=== PATIENT | female | born 1995 | race Caucasian/White ===

== ENCOUNTER 2024-07-11 23:59 | Inpatient (IN) ==
--- NOTE | 2024-07-12 00:13 | Emergency Department Note ---
Impression & Plan Acute right flank pain, UTI (urinary tract infection), ED Provider Note CHIEF COMPLAINT: Kidney infection, HISTORY OF PRESENTING ILLNESS: This 28-year-old female patient, who is approximately 29 weeks , presents to the emergency department for evaluation of a kidney infection. She started with a fever of 100.4 F and fatigue on 07/08/24. She then started with right flank pain the next day. The patient states that she was seen at [facility] on 07/09/2024 and diagnosed with a possible kidney infection. She states that they did a US, blood work, and urine testing. She was given IV antibiotics as well as a prescription for cefpodoxime and was told to follow-up with [facility] b/c of an abnormality seen on the US. The patient saw [facility] yesterday and was given Zofran and they were going to repeat the US next week. She was told to go back to the ER if she had continued fevers, nausea, or vomiting per patient. Her temp has been 99 F max since starting the antibiotics. The patient states that she is having continued right flank pain as well as nausea and vomiting despite the Zofran. She states that the right flank pain kept her from sleeping tonight. She states that there has been normal movement. She denies any vaginal bleeding. She has had continued urinary symptoms. REVIEW OF SYSTEMS: See HPI for pertinent positives and pertinent negatives. ALLERGIES: Latex MEDICATIONS: vitamin, Iron, Vit B12 PAST MEDICAL HISTORY: Denies pertinent past medical history. She has had an appendectomy, T&A, and wisdom teeth removed. PHYSICAL EXAM: VITALS: Vitals are noted on the nurse's note and reviewed by myself. GENERAL: Non toxic, in no acute distress, non-diaphoretic. SKIN: Capillary refill <2 sec. EYES: PERRLA. EOMI. Conjunctivae without injection, sclerae without icterus. NOSE: Patent without discharge. MOUTH: Mucous membranes moist. Uvula midline. Airway patent. NECK: Supple without nuchal rigidity. HEART: Regular rate and rhythm without murmurs gallops or rubs. LUNGS: Clear to auscultation bilaterally without wheezes, rales or rhonchi. No retractions or accessory muscle use. ABDOMEN: Gravid, tender to palpation of the right flank, but no other significant tenderness to palpation. Cornejo sign negative. Mildly positive right-sided CVA tenderness. No guarding, rigidity, or rebound tenderness. No focal RLQ or LLQ tenderness. MUSCULOSKELETAL: No gross musculoskeletal defects. NEURO: Patient was alert and oriented. No focal neurological deficits. DIFFERENTIAL DIAGNOSIS: Differential diagnosis includes hepatitis, pancreatitis, cholecystitis, cholelithiasis, appendicitis, kidney stone, pyelonephritis, UTI, gastritis, gastroenteritis, mesenteric adenitis, obstruction, constipation, hernia, abdominal abscess, perforation, diverticulitis, IBD, ischemic colitis, abdominal aortic aneurysm, complications, ovarian cyst, ovarian torsion, acute salpingitis, or others. ED COURSE AND MEDICAL DECISION MAKING: MEDICATIONS GIVEN: A total of 2 L normal saline solution bolus. Tylenol 1000 mg IV. Zofran 4 mg IV. Phenergan 25 mg IM. Dilaudid 0.25 mg IV. Rocephin 2 g IV. MONITOR: Continuous traffic monitor specialist: Order was placed for continuous traffic monitor specialist. Patient was placed on the traffic monitor specialist and continuous pulse ox. Patient was noted to be in normal sinus rhythm at an initial rate of 90 bpm per my interpretation. INTERPRETATION OF LABS: I interpreted the labs with full lab results as below in the lab section of this note. Laboratory results pertinent to the emergent complaint are discussed in the MDM section below. The patient was advised to follow up with their PCP and/or specialist(s) for further outpatient monitoring and management of any abnormal results. INTERPRETATION OF IMAGING: Imaging studies were interpreted by myself and read by radiology as per the imaging section of this note. The patient was advised to follow up with their PCP and/or specialist(s) for further outpatient management of any non-emergent abnormal findings. Renal ultrasound negative for acute abnormalities. CHRONIC MEDICAL/SOCIAL CONDITIONS AFFECTING CARE: 29 weeks CONSULTATIONS: Dr. Levine of [facility]. On-call hospitalist MDM SUMMARY: I examined the patient. The patient is 29 weeks . The patient started with a low-grade fever on 07/08/2024 followed by right flank pain the next day. She was seen at [facility] ER on 07/09/2024 and had a ultrasound and was told she had an infection of her kidney. The patient states that she was given IV antibiotics and then discharged home on for cefpodoxime. The patient then followed up with [facility] yesterday as an outpatient for follow- up of the ultrasound findings as well as her symptoms. She was given a prescription for Zofran at that time. The patient states that she was advised by [facility] to return to the ER if she had worsening symptoms despite the Zofran and antibiotics. The patient states that the right flank pain is getting progressively worse and she continues with nausea and vomiting. An IV lock was placed and labs were drawn. The patient was initially given 1 L normal saline solution bolus, Tylenol 1000 mg IV, and Zofran 4 mg IV. The patient had some continued nausea and was given Phenergan 25 mg IM. The patient had 2+ ketones in her urine and her blood pressure was a little low at 1 point and she was given a second liter of normal saline solution bolus. White blood cell count elevated 11.20. Hemoglobin low at 11.2. Platelet count normal at 133. Sodium slightly low at 135, but CMP otherwise without concerning abnormalities. Magnesium normal. Lipase normal. Lactate and procalcitonin were normal. Urinalysis with 3+ protein, trace glucose, 2+ ketones, 2+ blood, 1+ bilirubin, 1+ leukocyte Estrace, greater than 50 white blood cells, 11-20 red blood cells, 6-10 hyaline casts, greater than 20 epithelial cells, calcium oxalate crystals, and urine mucus. Renal ultrasound negative for acute abnormalities. Repeat ultrasound was not performed since the patient has noted normal movement and she denies any vaginal bleeding. I spoke with Dr. Levine of [facility] in regards to the patient. She recommends the patient receive Rocephin 2 g IV and Dilaudid for pain control. The patient was given the Rocephin 2 g IV and Dilaudid 0.25 mg IV for additional pain control. Dr. Levine did not recommend any additional imaging or workup at this time. She recommended the patient be admitted for further management. Initially the patient was going to be admitted to L&D, but there were no beds available. Therefore, she recommended the patient be admitted to medicine with [facility] consult. I spoke with the on-call hospitalist who agreed to admit the patient for further evaluation and treatment. Please refer to their dictation for further details. The patient's care was transferred in stable condition. DIAGNOSIS: Right flank pain - ? Pyelonephritis UTI - partially treated with cefpodoxime of 29 weeks Past Med/Surg History Problem List (Updated 07/12/24 @ 04:44 by Background Arnold) (Acute) UTI (urinary tract infection) (Acute) Acute right flank pain (Acute) Social History Smoking Status: Never smoker Preferred Language: Indonesian Feels Safe at Home: Yes Allergies Allergies Allergy/AdvReac Type Severity Reaction Status Date / Time latex Allergy Verified 07/12/24 00:24 Home Meds Home Medications Medication Instructions Recorded Confirmed cefpodoxime 200 mg tablet 200 mg PO Q12 07/12/24 07/12/24 cyanocobalamin (vitamin B-12) 1,000 mcg PO DAILY 07/12/24 07/12/24 1,000 mcg tablet ondansetron HCl 4 mg tablet 4 mg PO UD PRN Nausea 07/12/24 07/12/24 vit no.95-ferrous 1 tab PO DAILY 07/12/24 07/12/24 fumarate 28 mg-folic acid 800 mcg tablet () Results & Data (ED) Vital Signs Vital Signs - 24 hr 07/12/24 00:02 07/12/24 00:28 07/12/24 01:18 Temperature 37.2 C Temperature Source Temporal Artery Scan Pulse Rate 109 H 111 H 91 H Pulse Rate [Apical] Respiratory Rate 16 18 Respiratory Effort / Characteristics Non-Labored Spontaneous Respiratory Depth Normal Respiratory Pattern Regular Blood Pressure 116/80 Blood Pressure [Right Arm] Blood Pressure Mean 92 Blood Pressure Mean [Right Arm] Pulse Oximetry 98 Oxygen Delivery Method Room Air Sepsis Recent Fever Within 48 Hours Yes Sepsis New/Unexplained Change in Mental Status No Sepsis Action Taken by Nursing No Action Required 07/12/24 01:42 07/12/24 02:18 07/12/24 03:00 Temperature Temperature Source Pulse Rate 88 87 Pulse Rate [Apical] 90 Respiratory Rate 23 22 12 Respiratory Effort / Characteristics Non-Labored Spontaneous Respiratory Depth Normal Respiratory Pattern Regular Blood Pressure 88/42 L 97/57 L Blood Pressure [Right Arm] Blood Pressure Mean 57 65 Blood Pressure Mean [Right Arm] Pulse Oximetry 96 97 Oxygen Delivery Method Room Air Room Air Sepsis Recent Fever Within 48 Hours Sepsis New/Unexplained Change in Mental Status Sepsis Action Taken by Nursing 07/12/24 04:05 07/12/24 04:22 Temperature Temperature Source Pulse Rate 85 Pulse Rate [Apical] Respiratory Rate Respiratory Effort / Characteristics Respiratory Depth Respiratory Pattern Blood Pressure Blood Pressure [Right Arm] 106/54 L Blood Pressure Mean Blood Pressure Mean [Right Arm] 71 Pulse Oximetry Oxygen Delivery Method Sepsis Recent Fever Within 48 Hours Sepsis New/Unexplained Change in Mental Status Sepsis Action Taken by Nursing Laboratory Data 07/12/24 00:15 07/12/24 00:15 Lab Results 07/12/24 07/12/24 Range/Units 00:13 00:15 WBC 11.20 H (4.8-10.8) K/ul RBC 4.01 L (4.20-5.40) M/uL Hgb 11.2 L (12.0-16.0) g/dl Hct 34.0 L (37.0-47.0) % MCV 84.8 (80.0-100.0) fL MCH 27.9 (25.0-34.0) pg MCHC 32.9 (32.0-36.0) g/dL RDW Std Deviation 43.8 (36.4-46.3) fL RDW Coeff of Gwendolyn 14.2 (11.5-14.5) % Plt Count 133 (130-400) K/uL MPV 11.8 (9.4-12.4) fL Immature Gran % (Auto) 1.3 % Neut % (Auto) 82.0 % Lymph % (Auto) 11.6 % [place] % (Auto) 4.6 % Eos % (Auto) 0.2 % Baso % (Auto) 0.3 % Neut # (Auto) 9.18 H (1.40-6.50) K/uL Lymph # (Auto) 1.30 (1.20-3.40) K/uL [place] # (Auto) 0.52 (0.11-0.59) K/uL Eos # (Auto) 0.02 (0.00-0.50) K/uL Baso # (Auto) 0.03 (0.00-0.20) K/uL Immature Gran # (Auto) 0.15 (0.01-0.20) K/uL Sodium 135 L (136-145) mmol/L Potassium 3.7 (3.5-5.1) mmol/L Chloride 103 (98-107) mmol/L Carbon Dioxide 25 (21-32) mmol/L Anion Gap 7 (3-11) BUN 5 L (6-23) mg/dl Creatinine 0.53 L (0.6-1.2) mg/dl Est Cr Clr Drug Dosing 143.3 ml/min eGFR 129.11 BUN/Creatinine Ratio 9.4 L (10-20) Glucose 95 (70-99(Fasting)) mg/dl Lactate 1.0 (0.4-2.0) mmol/L Calcium 8.5 L (8.6-10.3) mg/dl Magnesium 1.7 (1.7-2.4) mg/dl Total Bilirubin 0.3 (0.2-1.0) mg/dl AST 18 (13-39) U/L ALT 11 (7-52) U/L Alkaline Phosphatase 107 H (34-104) U/L Total Protein 6.8 (6.0-8.3) gm/dl Albumin 3.4 (3.4-5.0) gm/dl Globulin 3.4 (2.5-4.0) gm/dl Albumin/Globulin Ratio 1.0 (0.9-2) Lipase 12 (11-82) U/L Procalcitonin 0.08 (0-0.5) ng/ml Urine Color Dark Yellow Urine Appearance Turbid A (Clear) Urine pH 6.0 (4.5-7.5) Ur Specific [place] 1.032 H (1.000-1.030) Urine Protein 3+ H (Negative) Urine Glucose (UA) Trace H (Negative) Urine Ketones 2+ H (Negative) Urine Blood 2+ H (Negative) Urine Nitrite Negative (Negative) Urine Bilirubin 1+ H (Negative) Urine Urobilinogen Negative (Negative) Ur Leukocyte Esterase 1+ H (Negative) Urine WBC (Auto) >50 H (0-5) /hpf Urine RBC (Auto) 11-20 H (0-2) /hpf U Hyaline Cast (Auto) 6-10 H (0-2) /lpf U Epithel Cells (Auto) >20 H (0-2) /hpf Urine Bacteria (Auto) None Seen (None Seen) Calcium Oxalate Crystal Present A (None Prsent) Urine Mucus Present A (None Prsent) Administered Medications Discontinued Medications Hydromorphone HCl (Hydromorphone Inj 0.5 Mg/0.5 Ml Syr) 0.25 mg IV NOW STA Stop: 07/12/24 02:41 Last Admin: 07/12/24 02:43 Dose: 0.25 mg Documented By: BARON Sodium Chloride (Nss) 1,000 mls @ 999 mls/hr IV .Q1H1M ONE Stop: 07/12/24 01:24 Last Infusion: 07/12/24 01:54 Dose: Infused Documented By: Admin: 07/12/24 00:46 Dose: 999 mls/hr Documented By: BARON Acetaminophen (Ofirmev) 1,000 mg in 100 mls @ 400 mls/hr IV NOW STA Stop: 07/12/24 00:38 Last Infusion: 07/12/24 01:51 Dose: Infused Documented By: Admin: 07/12/24 00:45 Dose: 400 mls/hr Documented By: BARON Sodium Chloride (Nss) 1,000 mls @ 999 mls/hr IV .Q1H1M ONE Stop: 07/12/24 02:48 Last Infusion: 07/12/24 02:48 Dose: Infused Documented By: Admin: 07/12/24 01:51 Dose: 999 mls/hr Documented By: BARON Ceftriaxone Sodium (Rocephin) 2,000 mg in 50 mls @ 100 mls/hr IV NOW STA Stop: 07/12/24 02:52 Last Infusion: 07/12/24 02:48 Dose: Infused Documented By: Admin: 07/12/24 02:37 Dose: 100 mls/hr Documented By: BARON Ondansetron HCl (Ondansetron Inj 2 Mg/Ml 2 Ml Vial) 4 mg IV NOW STA Stop: 07/12/24 00:25 Last Admin: 07/12/24 00:45 Dose: 4 mg Documented By: BARON Promethazine HCl (Promethazine Hcl Inj 25 Mg/Ml 1 Ml Vial) 25 mg IM NOW STA Stop: 07/12/24 02:16 Last Admin: 07/12/24 02:24 Dose: 25 mg Documented By: [facility] Imaging Data Radiologist's Impression: Renal Ultrasound 07/12/24 00:24 EXAM: US renal/blad retro comp CLINICAL HISTORY: Right flank pain, UTI, evel pyelo etc, 29 wk preg TECHNIQUE: Static ultrasound images with Grayscale and Doppler of kidneys and urinary bladder were submitted for review. COMPARISON: None FINDINGS: The right kidney is normal in size and echogenicity without evidence of hydronephrosis, nephrolithiasis or focal mass lesions. The left kidney is normal in size and echogenicity without evidence of hydronephrosis, nephrolithiasis or focal mass lesions. Urinary bladder is partially distended. IMPRESSION: 1. Unremarkable Renal and urinary bladder sonogram. Electronically signed by Jayy Batres 07-12-2024 01:38 AM Discharge Plan Visit Data Chief Complaint: Fever Stated Complaint: KIDNEY INFECTION,29 WKS PREG,FEVER,NAUSEA,VOMITING ED Provider: Akila oG ED Midlevel Provider: Lida Eli Discharge Problem: Acute right flank pain, UTI (urinary tract infection), Patient Disposition: Admitted As Inpatient Condition: Fair Discharge Instructions Interventions: ED Discharge Assessment Last Done: 07/12/24 05:04 Discharge Problem: UTI (urinary tract infection) Qualifiers: Urinary tract infection type: site unspecified Hematuria presence: without hematuria Qualified Code(s): N39.0 - Urinary tract infection, site not specified Qualifiers: Weeks of gestation: 29 weeks Qualified Code(s): Z3A.29 - 29 weeks gestation of
[2024-07-12 00:43] LABS: Basophils # (auto) 0.03 K/uL (0.00-0.20); Basophils % (auto) 0.3 %; Eosinophils # (auto) 0.02 K/uL (0.00-0.50); Eosinophils % (auto) 0.2 %; Hemoglobin 11.2 g/dl (12.0-16.0); Immature Granulocytes # (auto) 0.15 K/uL (0.01-0.20); Immature Granulocytes % (auto) 1.3 %; Lymphocytes % (auto) 11.6 %; Mean Corpuscular Hemoglobin 27.9 pg (25.0-34.0); Mean Corpuscular Hgb Conc 32.9 g/dL (32.0-36.0); Mean Corpuscular Volume 84.8 fL (80.0-100.0); Mean Platelet Volume 11.8 fL (9.4-12.4); Monocytes # (auto) 0.52 K/uL (0.11-0.59); Monocytes % (auto) 4.6 %; Neutrophils # (auto) 9.18 K/uL (1.40-6.50); Platelet Count 133 K/uL (130-400); RDW Coefficient of Variation 14.2 % (11.5-14.5); RDW Standard Deviation 43.8 fL (36.4-46.3); Red Blood Count 4.01 M/uL (4.20-5.40)
[2024-07-12] MEDS: ONDANSETRON INJ 2 MG/ML 2 ML VIAL IV STA (00:45)
[2024-07-12] MEDS: ACETAMINOPHEN 1,000 MG/100 ML VIAL IV STA (00:45)
[2024-07-12] MEDS: SODIUM CHLORIDE 0.9% 1,000 ML IV ONE ×2 (00:46→01:51)
[2024-07-12 00:59] LABS: Albumin Level 3.4 gm/dl (3.4-5.0); BUN Creatinine Ratio 9.4 (10-20); Bilirubin,Total 0.3 mg/dl (0.2-1.0); Calcium 8.5 mg/dl (8.6-10.3); Creatinine Clr Calc Pharmacy 143.3 ml/min; Globulin 3.4 gm/dl (2.5-4.0); Magnesium 1.7 mg/dl (1.7-2.4); Potassium 3.7 mmol/L (3.5-5.1); Total Protein 6.8 gm/dl (6.0-8.3)
[2024-07-12 01:18] LABS: Appearance Urine Turbid (Clear); Bacteria Urine Automated None Seen (None Seen); Bilirubin Urine 1+ (Negative); Blood Urine 2+ (Negative); Calcium Oxalate Crystals Urine Present (None Prsent); Color Urine Dark Yellow; Epithelial Cell Urine Auto >20 /hpf (0-2); Glucose Urine UA Trace (Negative); Ketones Urine 2+ (Negative); Leukocyte Esterase Urine 1+ (Negative); Mucus Urine Present (None Prsent); Nitrite Urine Negative (Negative); Protein Urine 3+ (Negative); Specific Gravity Urine 1.032 (1.000-1.030); Urobilinogen Urine Negative (Negative); WBC Urine Automated >50 /hpf (0-5)
--- NOTE | 2024-07-12 01:38 | Ultrasound Report ---
EXAM: US renal/blad retro comp CLINICAL HISTORY: Right flank pain, UTI, evel pyelo etc, 29 wk preg TECHNIQUE: Static ultrasound images with Grayscale and Doppler of kidneys and urinary bladder were submitted for review. COMPARISON: None FINDINGS: The right kidney is normal in size and echogenicity without evidence of hydronephrosis, nephrolithiasis or focal mass lesions. The left kidney is normal in size and echogenicity without evidence of hydronephrosis, nephrolithiasis or focal mass lesions. Urinary bladder is partially distended. IMPRESSION: 1. Unremarkable Renal and urinary bladder sonogram. Electronically signed by Jayy Batres 07-12-2024 01:38 AM
[2024-07-12] MEDS: PROMETHAZINE HCL INJ 25 MG/ML 1 ML VIAL IM STA (02:24)
[2024-07-12] MEDS: cefTRIAXone SODIUM 2,000 MG/50 ML BAG IV STA (02:37)
[2024-07-12] MEDS: HYDROmorphone INJ 0.5 MG/0.5 ML SYR IV STA (02:43)
--- NOTE | 2024-07-12 04:42 | History & Physical Report ---
Date of Service July 12, 2024 Assessment & Plan (1) UTI (urinary tract infection): Plan: 28-year-old female 29-week comes because of nausea, fever and right flank pain. Patient having symptoms of nausea and right flank pain and fever since Sunday. She went to [facility] and was found to have pyelonephritis and received dose of IV antibiotic and discharged home on p.o. cefpodoxime. At [place] ER ultrasound showed fetus probably mild polyhydramnios at 29 cm. Patient followed with [facility] TRIAGE NURSE on 07/10/2024 and has a plan to repeat ultrasound next week. And was advised to go to ER again if the symptoms does not improve. Patient was still having low-grade temperature and nausea and having right flank pain and came to the ER today. Somewhat constipated. Not micturating much at home but in the ER after fluids she was ab le to micturate. Has some pain with micturition. Denies any chest pain or shortness of breath. No cough. No headache. No runny nose. Hemodynamics are okay. UTI Right flank pain and nausea and fever Will follow cultures Will continue Rocephin Fluids Will monitor. 29-week Question of mild polyhydramnios Continue vitamins TRIAGE NURSE consult DVT prophylaxis SCDs Disposition Medical floor Full code. History of Present Illness Chief Complaint: Fever and right flank pain Primary Care Provider: Álvaro Martínez PA-C 28-year-old female 29-week comes because of nausea, fever and right flank pain. Patient having symptoms of nausea and right flank pain and fever since Sunday. She went to [facility] and was found to have pyelonephritis and received dose of IV antibiotic and discharged home on p.o. cefpodoxime. At [place] ER ultrasound showed fetus probably mild polyhydramnios at 29 cm. Patient followed with [facility] TRIAGE NURSE on 07/10/2024 and has a plan to repeat ultrasound next week. And was advised to go to ER again if the symptoms does not improve. Patient was still having low-grade temperature and nausea and having right flank pain and came to the ER today. Somewhat cons tipated. Not micturating much at home but in the ER after fluids she was able to micturate. Has some pain with micturition. Denies any chest pain or shortness of breath. No cough. No headache. No runny nose. Hemodynamics are okay. Past medical history as mentioned above Past surgical history. Dental surgery. Appendectomy. Tonsillectomy. Social history. Smokes half pack a day. Alcohol occasional not since . No drug use. Family history. Mother has bipolar disorder. Father has diabetes. Hypertension. Allergies Allergy/AdvReac Type Severity Reaction Status Date / Time latex Allergy Verified 07/12/24 00:24 Home Medications Medication Instructions Recorded Confirmed Type cefpodoxime 200 mg tablet 200 mg PO Q12 07/12/24 07/12/24 History cyanocobalamin (vitamin B-12) 1,000 mcg PO DAILY 07/12/24 07/12/24 History 1,000 mcg tablet ondansetron HCl 4 mg tablet 4 mg PO UD PRN Nausea 07/12/24 07/12/24 History vit no.95-ferrous 1 tab PO DAILY 07/12/24 07/12/24 History fumarate 28 mg-folic acid 800 mcg tablet () Past Med/Surg History Problem List (Updated 07/12/24 @ 06:32 by Brianna Levine MD) Pyelonephritis (Acute) UTI (urinary tract infection) (Acute) Acute right flank pain (Acute) Social History Smoking Status: Current some day smoker Tobacco Type: Cigarettes Second Hand Exposure: No; Do You Dip or Chew Tobacco: No; Tobacco Cessation Education Requested by Patient: No Hx Alcohol Use: Yes Hx Substance Use: No Preferred Language: Mexican Communication Ability: Effective Medical Device Sales Consultant Required: No Current Living Situation: Spouse Other Information That Helps Us Care for You: No Feels Safe at Home: Yes Safety Concerns: Feels Safe At This Time Assistive Devices: None Review of Systems Review of Systems: All systems reviewed & are unremarkable except as noted in HPI & below Physical Exam Physical Exam: General- Not in distress Head- atraumatic Eyes- PERRL. ENT- oropharynx clear Neck- supple, no JVD. Lungs- clear to auscultation no wheezing or crackles Heart- regular rhythm; no murmur, no gallop. Abdomen- normal bowel sounds, soft, nontender. Extremities- no pretibial edema, no erythema seen Neuro- alert, oriented PERRL, no facial palsy; no dysarthria; moves extremities Results & Data Results & Data Vital Signs (Past 12 Hours) Vital Signs Temp Pulse Pulse Resp BP BP Pulse Ox 07/12/24 04:22 85 07/12/24 04:05 106/54 L 07/12/24 03:00 90 12 07/12/24 02:18 87 22 97/57 L 97 07/12/24 01:42 88 23 88/42 L 96 07/12/24 01:18 91 H 18 07/12/24 00:28 111 H 07/12/24 00:02 37.2 C 109 H 16 116/80 98 O2 Del Method 07/12/24 04:22 07/12/24 04:05 07/12/24 03:00 07/12/24 02:18 Room Air 07/12/24 01:42 Room Air 07/12/24 01:18 07/12/24 00:28 07/12/24 00:02 Room Air Diagnostic Findings Laboratory Results WBC 11.20 K/ul (4.8-10.8) H 07/12/24 00:15 RBC 4.01 M/uL (4.20-5.40) L 07/12/24 00:15 Hgb 11.2 g/dl (12.0-16.0) L 07/12/24 00:15 Hct 34.0 % (37.0-47.0) L 07/12/24 00:15 MCV 84.8 fL (80.0-100.0) 07/12/24 00:15 MCH 27.9 pg (25.0-34.0) 07/12/24 00:15 MCHC 32.9 g/dL (32.0-36.0) 07/12/24 00:15 RDW Std Deviation 43.8 fL (36.4-46.3) 07/12/24 00:15 RDW Coeff of Gwendolyn 14.2 % (11.5-14.5) 07/12/24 00:15 Plt Count 133 K/uL (130-400) 07/12/24 00:15 MPV 11.8 fL (9.4-12.4) 07/12/24 00:15 Immature Gran % (Auto) 1.3 % 07/12/24 00:15 Neut % (Auto) 82.0 % 07/12/24 00:15 Lymph % (Auto) 11.6 % 07/12/24 00:15 [place] % (Auto) 4.6 % 07/12/24 00:15 Eos % (Auto) 0.2 % 07/12/24 00:15 Baso % (Auto) 0.3 % 07/12/24 00:15 Neut # (Auto) 9.18 K/uL (1.40-6.50) H 07/12/24 00:15 Lymph # (Auto) 1.30 K/uL (1.20-3.40) 07/12/24 00:15 [place] # (Auto) 0.52 K/uL (0.11-0.59) 07/12/24 00:15 Eos # (Auto) 0.02 K/uL (0.00-0.50) 07/12/24 00:15 Baso # (Auto) 0.03 K/uL (0.00-0.20) 07/12/24 00:15 Immature Gran # (Auto) 0.15 K/uL (0.01-0.20) 07/12/24 00:15 Sodium 135 mmol/L (136-145) L 07/12/24 00:15 Potassium 3.7 mmol/L (3.5-5.1) 07/12/24 00:15 Chloride 103 mmol/L (98-107) 07/12/24 00:15 Carbon Dioxide 25 mmol/L (21-32) 07/12/24 00:15 Anion Gap 7 (3-11) 07/12/24 00:15 BUN 5 mg/dl (6-23) L 07/12/24 00:15 Creatinine 0.53 mg/dl (0.6-1.2) L 07/12/24 00:15 Est Cr Clr Drug Dosing 143.3 ml/min 07/12/24 00:15 eGFR 129.11 07/12/24 00:15 BUN/Creatinine Ratio 9.4 (10-20) L 07/12/24 00:15 Glucose 95 mg/dl (70-99(Fasting)) 07/12/24 00:15 Lactate 1.0 mmol/L (0.4-2.0) 07/12/24 00:15 Calcium 8.5 mg/dl (8.6-10.3) L 07/12/24 00:15 Magnesium 1.7 mg/dl (1.7-2.4) 07/12/24 00:15 Total Bilirubin 0.3 mg/dl (0.2-1.0) 07/12/24 00:15 AST 18 U/L (13-39) 07/12/24 00:15 ALT 11 U/L (7-52) 07/12/24 00:15 Alkaline Phosphatase 107 U/L (34-104) H 07/12/24 00:15 Total Protein 6.8 gm/dl (6.0-8.3) 07/12/24 00:15 Albumin 3.4 gm/dl (3.4-5.0) 07/12/24 00:15 Globulin 3.4 gm/dl (2.5-4.0) 07/12/24 00:15 Albumin/Globulin Ratio 1.0 (0.9-2) 07/12/24 00:15 Lipase 12 U/L (11-82) 07/12/24 00:15 Procalcitonin 0.08 ng/ml (0-0.5) 07/12/24 00:15 Urine Color Dark Yellow 07/12/24 00:13 Urine Appearance Turbid (Clear) A 07/12/24 00:13 Urine pH 6.0 (4.5-7.5) 07/12/24 00:13 Ur Specific [place] 1.032 (1.000-1.030) H 07/12/24 00:13 Urine Protein 3+ (Negative) H 07/12/24 00:13 Urine Glucose (UA) Trace (Negative) H 07/12/24 00:13 Urine Ketones 2+ (Negative) H 07/12/24 00:13 Urine Blood 2+ (Negative) H 07/12/24 00:13 Urine Nitrite Negative (Negative) 07/12/24 00:13 Urine Bilirubin 1+ (Negative) H 07/12/24 00:13 Urine Urobilinogen Negative (Negative) 07/12/24 00:13 Ur Leukocyte Esterase 1+ (Negative) H 07/12/24 00:13 Urine WBC (Auto) >50 /hpf (0-5) H 07/12/24 00:13 Urine RBC (Auto) 11-20 /hpf (0-2) H 07/12/24 00:13 U Hyaline Cast (Auto) 6-10 /lpf (0-2) H 07/12/24 00:13 U Epithel Cells (Auto) >20 /hpf (0-2) H 07/12/24 00:13 Urine Bacteria (Auto) None Seen (None Seen) 07/12/24 00:13 Calcium Oxalate Crystal Present (None Prsent) A 07/12/24 00:13 Urine Mucus Present (None Prsent) A 07/12/24 00:13 Impressions Renal Ultrasound 07/12/24 00:24 EXAM: US renal/blad retro comp CLINICAL HISTORY: Right flank pain, UTI, evel pyelo etc, 29 wk preg TECHNIQUE: Static ultrasound images with Grayscale and Doppler of kidneys and urinary bladder were submitted for review. COMPARISON: None FINDINGS: The right kidney is normal in size and echogenicity without evidence of hydronephrosis, nephrolithiasis or focal mass lesions. The left kidney is normal in size and echogenicity without evidence of hydronephrosis, nephrolithiasis or focal mass lesions. Urinary bladder is partially distended. IMPRESSION: 1. Unremarkable Renal and urinary bladder sonogram. Electronically signed by Jayy Batres 07-12-2024 01:38 AM Code Status & VTE Plan VTE Prophylaxis Plan VTE Prophylaxis will be ordered: Yes (1) UTI (urinary tract infection) Hematuria presence: without hematuria Urinary tract infection type: site unspecified Qualified Code(s): N39.0 - Urinary tract infection, site not specified
--- OUTSIDE RECORDS SUMMARY | 2024-07-12 04:47 | External Medical Summary | Summary of Care ---
Author Name Unknown Organization [facility] Address [address] [place] [address] Phone [phone] Care Team Providers Care Air Conditioning Technician Name Role Phone Álvaro Martínez PA-C Primary Care Provider Encounter Details Date Type Department Care Team (Late st Contact Info) Description 07/10/2024 5:15 PM EDT Office Visit Gynecology/Obstetric s [facility] [place] [address] [place] [phone] Sabrina Lagunas PA-C [address] [place] [phone] Kidney pain*; Polyhydramnios in third trimester complication, single or unspecified fetus; Nausea and vomiting, unspecified vomiting type; Moderate episode of recurrent major depressive disorder (HCC); PCOS (polycystic ovarian syndrome); Supervision of normal first , antepartum; Rh negative, antepartum; Urinary tract infection in mother during first trimester of ; Antepartum anemia complicating ; Low maternal serum vitamin B12 Allergies Active Allergy Reactions Criticality Noted Date Comments Covid-19 (Mrna) Vaccine 12/31/2023 Any covid vaccine Influenza Virus Vaccine 12/31/2023 Any flu vaccine Latex 12/31/2023 rash documented as of this encounter (statuses as of 07/11/2024) Medications 6.75-0.2 MG Oral Tablet Take by mouth. Unsure of dosage. Active Vitamin B-12 1000 MCG Oral Tablet (Cyanocobalamin) Indications:Low maternal serum vitamin B12 Take 1 Tablet by mouth in the morning. 30 Tablet 5 07/01/2024 Active Ferrous Gluconate 240 (27 Fe) MG Oral Tablet (Iron 27) Take by mouth. Active Ondansetron HCl 4 MG Oral TabletIndication s:Nausea and vomiting, unspecified vomiting type Take 1 Tablet by mouth in the morning and 1 Tablet at noon and 1 Tablet before bedtime. 20 Tablet 07/10/2024 Active documented as of this encounter (statuses as of 07/11/2024) Active Problems Problem Noted Date Diagnosed Date Low maternal serum vitamin B12 07/01/2024 Antepartum anemia complicating 025 Overview (06/30/2024): Hgb 11.5 at 27 wks. Advised OTC ferrous sulfate QD. Recheck CBC 31 weeks. Urinary tract infection in m other during first trimester of 03/03/2024 Rh negative status during 02/29/2024 Overview (06/13/2024): FOB Rh neg, see MyG message 06/13/24 Supervision of normal first , antepartu m 02/28/2024 Moderate episode of recurrent major depressive d isorder 12/31/2023 Overview (02/28/2024): Hx PTSD, depression. Weaned off meds with +HPT PCOS (polycystic ovarian syndrome) 12/31/2023 Overview (02/28/2024): Reports dx at age 11 in ED. History of irregular periods. PTSD (post-traumatic stress disorder) 12/31/2023 Estimated Date of Delivery Comme nts Yes 09/26/2024 Based on last me nstrual period of 12/21/2023, irregular documented as of this encounter (statuses as of 07/11/2024) Immunizations Name Administration Dates Next Due DTaP Dipth/Tet/Acell Pertussis (Infanrix), Peds 10/31/2001,04/29/1997,07/07/1996,05/23,02/13/1996 HIB Booster (Hiberix) 10/31/2001, 998,05/23/1996,02/12 Hepatitis B, 0-19 yrs 09/04/1996,02/13/1996,1995 IPV - Polio Virus Vaccine (Inact) 2001,07/07/1996,05/23/1996,02/12 MMR - Measles/Mumps/Rubella Vaccine 11/06/2001,0 04/29/1997 Meningococcal MCV4P Conjugat e Vaccine (Menactra) 07/10/2007 TDAP, Age 7 and older, IM (Adacel) 07/29/2022 Varicella Vaccine (Chicken Pox) 07/10/2007,04/29 documented as of this encounter Social History Tobacco Use Types Packs/Day Years Used Date Smoking Tobacco: Some Days Cigarettes Smokeless Tobacco: Never Alcohol Use Standard Drinks/Week Comments Not Currently 0 (1 standard drink = 0.6 oz pur e alcohol) occasionally PHQ-2 Answer Date Recorded PHQ Adult Total Score 16 12/31/2023 Hunger Vital Sign Answer Date Recorded Within the past 12 months, y ou worried that your food would run out before you got the money to buy more. Never true 04/25/19 25 Within the past 12 months, t he food you bought just didn't last and you didn't have money to get more. Never true 04/25/2024 [place] Depression Scale Answer Date Recorded [place] Depression Scale Total 8 02/28/2024 The thought of harming myself has occurred to me . Never 02/28/2024 Childcare Answer Date Recorded Do you feel overwhelmed with taking care of a child, family member or friend? No 04/25/2024 Does your family need help f inding childcare? (Household - for ages 0-17 years) Not on file 04/25/2024 Clothing Answer Date Recorded Have you been unable to get clothing when it was really needed? Yes 04/25/2024 Is your family able to get c lothes or diapers when needed? (Household - for ages 0-17 years) Not on file 04/25/2024 Personal Safety Answer Date Recorded Do you feel unsafe or have concerns for your saf ety? No 04/25/2024 Do you have concerns for you r family's safety? (Household - for ages 0-17 years) Not on file 04/25/2024 Utilities Answer Date Recorded Do you have trouble paying y our heating, water, or electric bill? No 04/25/2024 Is your family able to pay t he heat, water, or electric bill? (Household - for ages 0-17 years) Not on file 04/25/2024 Does your family have access to good internet? (Household - for ages 0-17 years) Not on file 04/25/2024 Employment Status Answer Date Recorded Are you unemployed or without regular income? No 04/25/2024 Does the household have a re gular source of income? (Household - for ages 0-17 years) Not on file 04/25/2024 Social Connections Answer Date Recorded How often do you feel lonely or isolated from those around you? Sometimes 04/25/2024 Financial Resource Strain Answer Date R ecorded Do you have any trouble payi ng for your medications, or do you think you might in the future? No 04/25/2024 Does your family have troubl e paying for medicine? (Household - for ages 0-17 years) Not on file 04/25/2024 Transportation Needs Answer Date Record ed Do you have trouble getting a ride to medical visits or work? (Adult - for ages 18 years and over) Not on file 04/25/2024 Does your family have a hard time getting a ride to doctors visits? (Household - for ages 0-17 years) Not on file 04/25/2024 Has lack of transportation k ept you from medical appointments, meetings, work, or from getting things needed for daily living? Check all that apply. No 04/25/2024 Do you (or your family) have trouble finding or paying for a ride (transportation)? (Household - for ages 0-17 years) Not on file 04/25/2024 Housing Stability Answer Date Recorded Do you currently live in a s helter or have no steady place to sleep at night? No 04/25/2024 Do you think you are at risk of becoming homeless? (Adult - for ages 18 years and over) Not on file 04/25/2024 Does your family worry about paying for your home or becoming homeless? (Household - for ages 0-17 years) Not on file 0 04/25/2024 Are you homeless or worried that you might be in the future? No 04/25/2024 Are you (or your family) sarahi eless or worried that you might be in the future? (Household - for ages 0-17 years) Not on file Food Insecurity Answer Date Recorded Do you need food for this week? No 12/31/2023 Are you able to get enough f ood for your family? (Household - for ages 0-17 years) Not on file 12/31/2023 Does your family need food t his week? (Household - for ages 0-17 years) Not on file 12/31/2023 Do you always have enough fo od for your family? (Household - for ages 0-17 years) Not on file 12/31/2023 Food Insecurity Answer Date Recorded Within the past 12 months, y ou worried that your food would run out before you got the money to buy more. Never true 04/25/19 25 Within the past 12 months, t he food you bought just didn't last and you didn't have money to get more. Never true 04/25/2024 Do you need food for this week? No 04/25/2024 Estimated Date of Delivery Comme nts Yes 09/26/2024 Based on last me nstrual period of 12/21/2023, irregular Sex and Gender Information Value Date Recorded Sex Assigned at Female 12/31/2023 11:17 AM EDT Legal Sex Female 6:09 PM EDT Gender Identity Female 12/31/2023 11:17 AM EDT Sexual Orientation Straight 12/31/2023 11 :17 AM EDT documented as of this encounter Last Filed Vital Signs Vital Sign Reading Time Taken Comments Blood Pressure 108/62 07/10/2024 5:05 PM EDT Pulse - - Temperature 37.4 °C (99.3 °F) 07/10/2024 5:05 PM ED T Respiratory Rate - - Oxygen Saturation - - Inhaled Oxygen Concentration - - Weight 72.6 kg (160 lb) 07/10/2024 5:05 PM EDT Height 154.9 cm (5' 1") 07/10/2024 5:05 PM EDT Body Mass Index 30.23 07/10/2024 5:05 PM EDT documented in this encounter Progress Notes * Sabrina Lagunas PA-C - 07/11/2024 9:28 AM EDT 29w0d Here in follow up of ER visit, [place] [facility]. Diagnosed with pylenephritis. Received 1 dose of IV ABX and sent home with PO ABX. Urine culture still pending. She was febrile yesterday. Better today. Still with pain of R flank. Had bilateral flank pain so left better. Having nausea and vomiting. Hasnot eaten in 2 days. Trying to get in fluids, but struggling. Not sent home with any antiemetics. Ultrasound through ER for fetus showed probably mild polyhydramnios at 29 cm. Reviewed with her. Plans 3 hour gtt tomorrow, but may hold until early next week when nausea and other symptoms improved.Will plan repeat ultrasound to reassess WILLARD. Denies VB, LOF, contractions. Pos fm. Reviewed with on-call provider Dr. Levine via [employer] as patient with continued R flank pain. She advised continue home medications, notify office if not improving. Discussed with patient should she not improve or start to fell worse, low threshold to go to hospital. She voiced understanding. Zofran sent for nausea. Keep appointment next week for HAKAN. Sabrina Lagunas PA-C documented in this encounter Nursing Notes * Carmelita Oswald RN - 07/10/2024 5:06 PM EDT Patient here for HAKAN/ ER follow up Seen at [facility] last evening for + flank pain, rib pain and fevers- prescribed abx OB US also indicated polyhydramnios + FM Denies bleeding, leaking, contractions documented in this encounter Plan of Treatment Upcoming Encounters Date Type Department Care Team (Late st Contact Info) Description 07/17/2024 8:00 AM EDT [facility] [place] [address] [place] [phone] [facility] [address] [place] [phone] 07/17/2024 9:15 AM EDT Office Visit Gynecology/Obstetrics [facility] [address] [place] [phone] Larissa Wang PA-C [address] [place] [phone] 07/17/2024 11:15 AM EDT [facility] [address] [place] [phone] Scheduled Orders Name Type Priority Associated Diagnoses Orde r Schedule US PREG FOLLOW-UP EACH FETUS Medical Imaging Routine Polyhydramnios in third trimester complication, single or unspecified fetus Expected: 07/10/2024, Expires: 08/10/2025 Health Maintenance Due Date Last Done Comments Pneumococcal Vaccine: Pediatrics (0 to 5 Years) and At-Risk Patients (6 to 18 Years and 19+ Years) (1 of 2 - PCV) 12/06/2014 COVID-19 Vaccine (1 - season) 2023 Influenza Vaccine (FLU shot) (Season Ended) 2024 Depression Monitoring 12/30/2024 12/31/2023, 024 Pap Smear 02/27/2027 02/28/2024 DTap/Tdap Vaccines (7 - Td or Tdap) 07/29/2032 07/29/2022, 10/31/2001, 04/29/1997, Additional history exists Hepatitis B Vaccine Completed 09/04/1996, 02/13/1996, 01/03/1996 MENINGOCOCCAL (MENACTRA/MENVEO) Aged Out 07/10/2007 No longer eligible based on patient's age to complete this topic HPV (Gardasil) Vaccine Aged Out No lo nger eligible based on patient's age to complete this topic Meningitis B Vaccine (Bexsero/Trumemba) Aged Out No longer eligible based on patient's age to complete this topic documented as of this encounter Goals Goal Patient Goal Type Associated Problems Recent Progress Patient-Stated? Author Reminders Care Plan OB Reminders No Mychart, Provider documented as of this encounter Medical Devices Not on filedocumented as of this encounter Visit Diagnoses Diagnosis Kidney pain- Primary Renal colic Polyhydramnios in third trimester complication, single or unspecified fetus Nausea and vomiting, unspecified vomiting type Moderate episode of recurrent major depressive disorder (HCC) PCOS (polycystic ovarian syndrome) Polycystic ovaries Supervision of normal first , antepartum Rh negative, antepartum Rhesus isoimmunization affecting management of mother, antepartum condition Urinary tract infection in mother during first trimester of Antepartum anemia complicating Anemia, antepartum Low maternal serum vitamin B12 documented in this encounter Additional Health Concerns Active Problems Noted Date Diagnosed Date OB Reminders 04/07/2024 documented as of this encounter Care Teams Air Conditioning Technician Relationship Specialty Start Date End Date Álvaro Martínez PA-C [id number] [facility] [place] [phone] PCP - General Physician Delivery Stock Clerk 12/31/23 documented as of this encounter
--- OUTSIDE RECORDS SUMMARY | 2024-07-12 04:47 | External Medical Summary | Summary of Care ---
Author Name Unknown Organization [facility] Address [address] [facility] [place] [address] Phone [phone] Care Team Providers Care Photographer Portrait Name Role Phone Álvaro Martínez PA-C Primary Care Provider Encounter Details Date Type Department Care Team (Late st Contact Info) Description 07/09/2024 Result Scan Unspecified Department <No scans attached> Allergies Active Allergy Reactions Criticality Noted Date Comments Covid-19 (Mrna) Vaccine 12/31/2023 Any covid vaccine Influenza Virus Vaccine 12/31/2023 Any flu vaccine Latex 12/31/2023 rash documented as of this encounter (statuses as of 07/10/2024) Medications 6.75-0.2 MG Oral Tablet Take by mouth. Unsure of dosage. Active Vitamin B-12 1000 MCG Oral Tablet (Cyanocobalamin) Indications:Low maternal serum vitamin B12 Take 1 Tablet by mouth in the morning. 30 Tablet 5 07/01/2024 Active documented as of this encounter (statuses as of 07/10/2024) Active Problems Problem Noted Date Diagnosed Date [...] as of this encounter (statuses as of 07/10/2024) Immunizations Name Administration Dates Next Due DTaP Dipth/Tet/Acell Pertussis (Infanrix), Peds 10/31/2001,04/29/1997,07/07/1996,05/23,02/13/1996 HIB Booster (Hiberix) 10/31/2001, 998,05/23/1996,02/12 Hepatitis B, 0-19 yrs 09/04/1996,02/13/1996,12/05 IPV - Polio Virus Vaccine (Inact) 2001,07/07/1996,05/23/1996,02/12 [...] money to get more. Never true 04/25/2024 [place] Depression Scale Answer Date Recorded [place] Depression Scale Total 8 02/28/2024 The thought [...] AM EDT documented as of this encounter Plan of Treatment Upcoming Encounters Date Type Department Care Team (Late st Contact Info) Description 07/11/2024 7:30 AM EDT Laboratory Laboratory, [facility] [address] [place] [place] [phone] [facility] [address] [place] [phone] 07/17/2024 9:15 AM EDT Office Visit Gynecology/Obstetrics [facility] [address] [place] [place] [address] Larissa Wang PA-C [address] [place] [phone] Health Maintenance Due Date Last Done Comments Pneumococcal Vaccine: Pediatrics (0 to 5 Years) and At-Risk Patients (6 to 18 Years and 19+ Years) (1 of 2 - PCV) 12/06/2014 COVID-19 Vaccine ( - season) 2023 Influenza Vaccine (FLU shot) [...] Not on filedocumented as of this encounter Procedures Procedure Name Priority Date/Time Associated Diagnosis Comments RADIOLOGY SCANNED RESULT 07/09/2024 documented in this encounter Results * RADIOLOGY SCANNED RESULT (07/09/2024) 07/09/2024 us No Physician Data Unknown DIAGNOSTIC RADIOLOGY S ERVICES Final Result documented in this encounter Additional Health Concerns Active Problems Noted Date Diagnosed Date OB Reminders 04/07/2024 documented as of this encounter Care Teams Photographer Portrait Relationship Specialty Start Date End Date Álvaro Martínez PA-C [address] [facility] [place] [address] PCP - General Physician Technician 12/31/23 documented as of this encounter
--- OUTSIDE RECORDS SUMMARY | 2024-07-12 04:48 | External Medical Summary | Summary of Care ---
Author Name Unknown Organization [facility] Address [address] [place] [address] Phone [phone] Care Team Providers Care Psychiatric Registered Nurse Name Role Phone Álvaro Martínez PA-C Primary Care Provider Reason for Visit * Reason Comments Outpatient Testing Encounter Details Date Type Department Care Team (Late st Contact Info) Description 06/30/2024 7:50 AM EDT Laboratory Laboratory, [facility] [address] [facility] [phone] [facility] [address] Supervision of normal first , antepartum; Rh negative status during in second trimester Allergies Active Allergy Reactions Criticality Noted Date Comments Covid-19 (Mrna) Vaccine 12/31/2023 Any covid vaccine Influenza Virus Vaccine 12/31/2023 Any flu vaccine Latex 12/31/2023 rash documented as of this encounter (statuses as of 06/30/2024) Medications 6.75-0.2 MG Oral Tablet Take by mouth. Unsure of dosage. Active documented as of this encounter (statuses as of 06/30/2024) Active Problems Problem Noted Date Diagnosed Date Antepartum anemia complicating 025 Overview (06/30/2024): Hgb [...] as of this encounter (statuses as of 06/30/2024) Immunizations Name Administration Dates Next Due DTaP [...] money to get more. Never true 04/25/2024 [place] Depression Scale Answer Date Recorded [place] Depression Scale Total 8 02/28/2024 The thought [...] Team (Late st Contact Info) Description 07/17/2024 9:15 AM EDT Office Visit Gynecology/Obstetrics [facility] [address] [place] [place] [phone] Larissa Wang PA-C [address] [place] [phone] Pending Results Name Type Priority Associated Diagnoses Date /Time CBC WITH WBC DIFFERENTIAL AND ANEMIA REFLEX WORKUP Lab Routine Supervision of normal first , antepartum 06/30/2024 8:24 AM EDT SYPHILIS ANTIBODY SCREEN WITH REFLEX TO RPR Lab Routine Supervision of normal first , antepartum 06/30/2024 8:24 AM EDT TYPE AND SCREEN Lab Routine Supervision of normal first , antepartum Rh negative status during in second trimester 06/30/2024 8:24 AM EDT ANEMIA REFLEX CHEMISTRY HOLD Lab Routine Supervision of normal first , antepartum 06/30/2024 8:24 AM EDT SYPHILIS ANTIBODY SCREEN Lab Routine Supervision of normal first , antepartum 06/30/2024 8:24 AM EDT RETICULOCYTE PANEL Lab Routine Supervision of normal first , antepartum 06/30/2024 8:24 AM EDT Health Maintenance Due Date Last Done Comments [...] Procedure Name Priority Date/Time Associated Diagnosis Comments ANEMIA CBC Routine 06/30/2024 8:24 AM EDT Supervision of normal first , antepartum DIFFERENTIAL, AUTOMATED Routine 06/30/2024 8:24 AM EDT Supervision of normal first , antepartum 50-G GESTATIONAL GLUCOSE, 1 HOUR Routine 06/30/2024 8:24 AM EDT Supervision of normal first , antepartum documented in this encounter Results * (ABNORMAL) DIFFERENTIAL, AUTOMATED (06/30/2024 8:24 AM EDT) WBC 13.42(H) 4.00 - 10.80 K/uL 06/30/2024 9:02 AM EDT [facility] [place] [facility] Neutrophils % 80.1(H) 40.0 - 75.0 % 06/30/2024 9:02 AM EDT [facility] [place] [facility] Lymphocytes % 14.9(L) 18.0 - 42.0 % 06/30/2024 9:02 AM EDT [facility] [place] [facility] Monocytes % 4.2 1.0 - 11.0 % 06/30/2024 9:02 AM EDT [facility] [place] [facility] Eosinophils % 0.6 0.0 - 6.0 % 06/30/2024 9:02 AM EDT [facility] [place] [facility] Basophils % 0.2 0.0 - 2.0 % 06/30/2024 9:02 AM EDT [facility] [place] [facility] Absolute Neutrophils 10.74(H) 1.80 - 7.70 K/uL 06/30/2024 9:02 AM EDT [facility] [place] [facility] Absolute Lymphocytes 2.00 1.00 - 4.80 K/ul 06/30/2024 9:02 AM EDT [facility] [place] [facility] Absolute Monocytes 0.57 0.00 - 1.10 K/uL 06/30/2024 9:02 AM EDT [facility] [place] [facility] Absolute Eosinophils 0.08 0.00 - 0.70 K/uL 06/30/2024 9:02 AM EDT [facility] [place] [facility] [facility] Absolute Basophils 0.03 0.00 - 0.20 K/uL 06/30/2024 9:02 AM EDT [facility] [place] [facility] [facility] Blood Venous blood specimen / Unknown Venipuncture / Unknown 06/30/2024 8:24 AM EDT 06/30/2024 8:24 AM EDT Octavia Herman Backer SPORTS EQUIPMENT REPAIRER LAB BLOOD ORDERABLE S Final Result [facility] [place] [facility] [address] [facility] [place] [address] * (ABNORMAL) ANEMIA CBC (06/30/2024 8:24 AM EDT) WBC 13.42(H) 4.00 - 10.80 K/uL 06/30/2024 9:02 AM EDT [facility] [place] [facility] [facility] RBC 3.98 3.85 - 5.15 M/uL 06/30/2024 9:02 AM EDT [facility] HGB 11.5(L) 12.0 - 15.3 g/dL 06/30/2024 9:02 AM EDT [facility] Comment: Anemia reflex testing triggers on a HGB < 12.0 for Females and HGB < 13.0 for Males in accordance with the WHO Anemia Guidelines Anemia reflex testing triggers on a HGB < 12.0 for Females and HGB < 13.0 for Males in accordance with the WHO Anemia Guidelines HCT 35.9(L) 36.0 - 45.2 % 06/30/2024 9:02 AM EDT [facility]10 MCV 90.2 81.5 - 97.5 fL 06/30/2024 9:02 AM EDT [facility]10 MCH 28.9 27.0 - 34.0 pg 06/30/2024 9:02 AM EDT [facility] MCHC 32.0 32.0 - 36.0 g/dL 06/30/2024 9:02 AM EDT [facility]10 RDW 13.9 11.5 - 15.5 % 06/30/2024 9:02 AM EDT [facility] PLT 174 140 - 400 K/uL 06/30/2024 9:02 AM EDT [facility]10 MPV 11.7 6.6 - 11.1 fL 06/30/2024 9:02 AM EDT [facility]10 Blood Venous blood specimen / Unknown Venipuncture / Unknown 06/30/2024 8:24 AM EDT 06/30/2024 8:24 AM EDT us Octavia CALIXTO LAB BLOOD ORDERABLE S Final Result [facility] [address] [place] [phone] * (ABNORMAL) 50-G GESTATIONAL GLUCOSE, 1 HOUR (06/30/2024 8:24 AM EDT) 50-g Gestational Glucose, 1 Hour 183(H) 70 - 129 mg/dL 06/30/2024 9:37 AM EDT [facility] Blood Venous blood specimen / Unknown Venipuncture / Unknown 06/30/2024 8:24 AM EDT 06/30/2024 8:24 AM EDT Octavia Herman Backer SPORTS EQUIPMENT REPAIRER LAB BLOOD ORDERABLE S Final Result [facility] [address] [facility] [place] [phone] documented in this encounter Visit Diagnoses Diagnosis Supervision of normal first , antepartum Rh negative status during in second trimester documented in this encounter Additional Health Concerns Active Problems Noted Date Diagnosed Date OB Reminders 04/07/2024 documented as of this encounter Care Teams Psychiatric Registered Nurse Relationship Specialty Start Date End Date Álvaro Martínez PA-C [address] [facility] [place] [address] PCP - General Physician Human Resource Manager 12/31/23 documented as of this encounter
--- OUTSIDE RECORDS SUMMARY | 2024-07-12 04:48 | External Medical Summary ---
Author Name Unknown Address Unknown Organization [id number]:[facility] [place] [facility] - [address] [place] [address] Laboratory Report Ordering Provider Test Date Status GREGG DEMPSEY 06/30/2024 08:24:21 Final Observation Date Value Abnormality Reference (Units ) Status SYNC LEUKOCYTES IN BLOOD BY AUTOMATED COUNT 06/30/2024 08:24:21 13.42 Above high normal 4.00-10.80 (K/uL) Final Segs 06/30/2024 08:24:21 80.1 Above high normal 40.0-75.0 (%) Final Lymphs % 06/30/2024 08:24:21 14.9 Below low normal 18.0-42.0 (%) Final Monos 06/30/2024 08:24:21 4.2 1.0-11.0 (%) Final Eosinophils 06/30/2024 08:24:21 0.6 0.0-6.0 (%) Final Basos 06/30/2024 08:24:21 0.2 0.0-2.0 (%) Final Absolute Segs 06/30/2024 08:24:21 10.74 Above high normal 1.80-7.70 (K/uL) Final Lymphs, absolute 06/30/2024 08:24:21 2.00 1.00-4.80 (K/ul) Final Monos, Abs 06/30/2024 08:24:21 0.57 0.00-1.10 (K/uL) Final Eos, Abs 06/30/2024 08:24:21 0.08 0.00-0.70 (K/uL) Final Basos, Abs 06/30/2024 08:24:21 0.03 0.00-0.20 (K/uL) Final Performing Location [facility] [place] [facility] 0 - [address] [place] [address]
--- OUTSIDE RECORDS SUMMARY | 2024-07-12 04:48 | External Medical Summary | Summary of Care ---
Author Name Unknown Organization [facility] Address [address] [facility] [place] [address] Phone [phone] Care Team Providers Care Historiography Professor Name Role Phone Álvaro Martínez PA-C Primary Care Provider Reason for Visit * Reason Comments Return Visit Encounter Details Date Type Department Care Team (Late st Contact Info) Description 05/09/2024 11:30 AM EST Office Visit Gynecology/Obstetric s [facility] Coron[facility] [address] [place] [phone] Octavia Gamboa CRNP [address] [place] [phone] Supervision of normal first , antepartum*; Moderate episode of recurrent major depressive disorder (HCC); Rh negative status during in second trimester; Urinary tract infection in mother during first trimester of Allergies Active Allergy Reactions Criticality Noted Date Comments Covid-19 (Mrna) Vaccine 12/31/2023 Any covid vaccine Influenza Virus Vaccine 12/31/2023 Any flu vaccine Latex 12/31/2023 rash documented as of this encounter (statuses as of 05/09/2024) Medications buPROPion HCl ER (XL) 150 MG Oral Tablet Extended Release 24 Hour (Wellbutrin XL) Take 1 Tablet by mouth in the morning. 30 Tablet 5 Active Additional Information Patient not taking.Reported on 02/28/2024 6.75-0.2 MG Oral Tablet Take by mouth. Unsure of dosage. Active Cephalexin 500 MG Oral Capsule (Keflex) Take 1 Capsule by mouth in the morning and 1 Capsule at noon and 1 Capsule in the evening and 1 Capsule before bedtime. Do all this for 7 days. 28 Capsule 5 05/10/19 25 Discontin ued(Medic ation List Clean Up) documented as of this encounter (statuses as of 05/09/2024) Active Problems Problem Noted Date Diagnosed Date Urinary tract infection in m other during first trimester of 03/03/2024 Rh negative status during 02/29/2024 Supervision of normal first , antepartu m [...] as of this encounter (statuses as of 05/09/2024) Immunizations Name Administration Dates Next Due DTaP [...] money to get more. Never true 04/25/2024 [place] Depression Scale Answer Date Recorded [place] Depression Scale Total 8 02/28/2024 The thought [...] Sign Reading Time Taken Comments Blood Pressure 102/60 05/09/2024 11:14 AM EST Pulse - - Temperature - - Respiratory Rate - - Oxygen Saturation - - Inhaled Oxygen Concentration - - Weight 69.9 kg (154 lb) 05/09/2024 11:14 AM EST Height - - Body Mass Index 29.1 12/31/2023 11:18 AM EDT documented in this encounter Progress Notes * Mariya Aguilar LPN - 05/09/2024 11:15 AM EST 20w0d Denies vaginal bleeding/rom + movement Anatomy scan today * Octavia Gamboa CRNP - 05/09/2024 11:14 AM EST 20w0d + movement. No cramping/bleeding. Completed anatomy scan today, WNL. Having a boy. Received treatment for UTI, repeat urine culture today. 4 week return DURGA Ha documented in this encounter Plan of Treatment Upcoming Encounters Date Type Department Care Team (Late st Contact Info) Description 06/13/2024 8:30 AM EDT Office Visit Gynecology/Obstetrics Robina Coronado [address] [place] [phone] Octavia Gamboa CRNP [address] [place] [address] Pending Results Name Type Priority Associated Diagnoses Date /Time CULTURE, URINE, QUANTITATIVE Lab Routine Urinary tract infection in mother during first trimester of 05/09/2024 11:37 AM EST Health Maintenance Due Date Last Done Comments Pneumococcal Vaccine: Pediatrics (0 to 5 Years) and At-Risk Patients (6 to 18 Years and 19+ Years) (1 of 2 - PCV) 12/06/2014 COVID-19 Vaccine (1 - season) 2023 Influenza Vaccine (FLU shot) (#1) 2023 Depression Monitoring 12/30/2024 12/31/2023, 024 Pap Smear [...] Author Reminders Care Plan OB Reminders No Michaelt, Provider documented as of this encounter Medical Devices Not on filedocumented as of this encounter Visit Diagnoses Diagnosis Supervision of normal first , antepartum- Primary Moderate episode of recurrent major depressive disorder (HCC) Rh negative status during in second trimester Urinary tract infection in mother during first trimester of documented in this encounter Additional Health Concerns Active Problems Noted Date Diagnosed Date OB Reminders 04/07/2024 documented as of this encounter Care Teams Historiography Professor Relationship Specialty Start Date End Date Álvaro Martínez PA-C [address] [facility] [place] [address] PCP - General Physician Online Banking Specialist 12/31/23 documented as of this encounter
--- OUTSIDE RECORDS SUMMARY | 2024-07-12 04:48 | External Medical Summary | Summary of Care ---
Author Name Unknown Organization [facility] Address [address] [facility] [place] [address] Phone [phone] Care Team Providers Care Director Learning Name Role Phone Álvaro Martínez PA-C Primary Care Provider Encounter Details Date Type Department Care Team (Late st Contact Info) Description 07/09/2024 Telephone Gynecology/Obstetrics [facility] [address] [place] [phone] Elliot Bradford MD [address] [place] [address] Allergies Active Allergy Reactions Criticality Noted Date Comments Covid-19 (Mrna) Vaccine 12/31/2023 Any covid vaccine Influenza Virus Vaccine 12/31/2023 Any flu vaccine Latex 12/31/2023 rash documented as of this encounter (statuses as of 07/09/2024) Medications 6.75-0.2 MG Oral Tablet Take by mouth. Unsure of dosage. Active Vitamin B-12 1000 MCG Oral Tablet (Cyanocobalamin) Indications:Low maternal serum vitamin B12 Take 1 Tablet by mouth in the morning. 30 Tablet 5 07/01/2024 Active documented as of this encounter (statuses as of 07/09/2024) Active Problems Problem Noted Date Diagnosed Date [...] as of this encounter (statuses as of 07/09/2024) Immunizations Name Administration Dates Next Due DTaP [...] money to get more. Never true 04/25/2024 [place] Depression Scale Answer Date Recorded [place] Depression Scale Total 8 02/28/2024 The thought [...] AM EDT documented as of this encounter Miscellaneous Notes * Telephone Encounter - Zohra Diggs LPN - 07/09/2024 2:17 PM EDT Spoke with pt she verbalized understanding and said she will go to er closer to where she lives * Telephone Encounter - Elliot Bradford MD - 07/09/2024 2:15 PM EDT Should go to ER Thanks * Telephone Encounter - Zohra Diggs LPN - 07/09/2024 2:08 PM EDT Pt called in on update. Pt said no new pain or changes since she called earlier. * Telephone Encounter - Zohra Diggs LPN - 07/09/2024 12:50 PM EDT Pt called in 28w5d with concerns of running a fever since yesterday. Pt has been taking tylenol andfever is running at 99F. Pt also has c/o rib pain that radiates to her back. Pt spoke with collections attorney last night and was told to take tylenol and drink water. Pt said she has been taking tylenol and hasnot been drinking much water because she does not feel well. Pt said she is still having urine output. Pt denies any VB, LOF, Ctxs. Pt said baby is moving a lot. I instructed pt to try and push fluids along with continue to take tylenol as needed I will reach out to collections attorney provider for any other recommendations. Please review and advise. documented in this encounter Plan of Treatment Upcoming Encounters Date Type Department Care Team (Late st Contact Info) Description 07/11/2024 7:30 AM EDT [facility] [address] [place] [phone] [facility] [address] [place] [address] 07/17/2024 9:15 AM EDT Office Visit Gynecology/Obstetrics [facility] [address] [place] [address] Larissa Wang PA-C [address] [place] [address] Health Maintenance Due Date Last Done Comments Pneumococcal Vaccine: Pediatrics (0 to 5 Years) and At-Risk Patients (6 to 18 Years and 19+ Years) (1 of 2 - PCV) 12/06/2014 COVID-19 Vaccine (1 - 2023- season) 2023 Influenza Vaccine (FLU shot) (Season [...] Author Reminders Care Plan OB Reminders No Daljit Provider documented as of this encounter Medical Devices Not on filedocumented as of this encounter Additional Health Concerns Active Problems Noted Date Diagnosed Date OB Reminders 04/07/2024 documented as of this encounter Care Teams Director Learning Relationship Specialty Start Date End Date Álvaro Martínez PA-C [address] [facility] [place] [address] PCP - General Physician Garden Consultant 12/31/23 documented as of this encounter
--- OUTSIDE RECORDS SUMMARY | 2024-07-12 04:48 | External Medical Summary ---
Author Name Unknown Address Unknown Organization [id number]:[facility] - [address] [place] [address] Laboratory Report Ordering Provider Test Date Status GREGG DEMPSEY 06/30/2024 08:24:21 Final Observation Date Value Abnormality Reference (Units ) Status Iron 06/30/2024 08:24:21 100 33-151 (ug/dL) Final Iron-binding capacity 06/30/2024 08:24:21 544 Above high normal 250-425 (ug/dL) Final Transferrin Sat % 06/30/2024 08:24:21 18 15-55 (%) Final Performing Location [facility] - [address] [place] [address]
--- OUTSIDE RECORDS SUMMARY | 2024-07-12 04:48 | External Medical Summary ---
Author Name Unknown Address Unknown Organization K0G:[facility] - [address] [place] [address] Laboratory Report Ordering Provider Test Date Status GREGG DEMPSEY 06/30/2024 08:24:21 Final Observation Date Value Abnormality Reference (Units ) Status WBC, Total 06/30/2024 08:24:21 13.42 Above high normal 4 .00-10.80 (K/uL) Final RBC 06/30/2024 08:24:21 3.98 3.85-5.15 (M/uL) Final Hemoglobin 06/30/2024 08:24:21 11.5 Below low normal 12 .0-15.3 (g/dL) Final Anemia reflex testing trigge rs on a HGB < 12.0 for Females and HGB < 13.0 for Males in accordance with the WHO Anemia Guidelines
Anemia reflex testing triggers on a HGB < 12.0 for Females and HGB < 13.0 for Males in accordance with the WHO Anemia Guidelines HCT 06/30/2024 08:24:21 35.9 Below low normal 36. 0-45.2 (%) Final MCV 06/30/2024 08:24:21 90.2 81.5-97.5 (fL) Final MCH 06/30/2024 08:24:21 28.9 27.0-34.0 (pg) Final MCHC 06/30/2024 08:24:21 32.0 32.0-36.0 (g/dL) Final RDW 06/30/2024 08:24:21 13.9 11.5-15.5 (%) Final Platelets 06/30/2024 08:24:21 174 140-400 (K /uL) Final MPV 06/30/2024 08:24:21 11.7 6.6-11.1 ( fL) Final Performing Location [facility]1 0 - [address] [place] [address]
--- OUTSIDE RECORDS SUMMARY | 2024-07-12 04:48 | External Medical Summary ---
Author Name Unknown Address Unknown Organization [id number]:[facility] - [address] [place] [address] Laboratory Report Ordering Provider Test Date Status KECARINEZUES 06/30/2024 08:24:21 Final Observation Date Value Abnormality Reference (Units ) Status Vitamin B12 06/30/2024 08:24:21 185 Below low normal 2 32-1245 (pg/mL) Final Performing Location [facility] - [address] [place] [address]
--- OUTSIDE RECORDS SUMMARY | 2024-07-12 04:48 | External Medical Summary | Summary of Care ---
Author Name Unknown Organization [facility] Address [address] [facility] [place] [address] Phone [phone] Care Team Providers Care Rehabilitation Specialist Name Role Phone Álvaro Martínez PA-C Primary Care Provider Reason for Visit * Reason Onset Date Comments Test Results 06/30/2024 Encounter Details Date Type Department Care Team (Late st Contact Info) Description 06/30/2024 Telephone Gynecology/Obstetrics [facility] [address] [place] [address] Octavia Gamboa CRNP [address] [place] [phone] Test Results Allergies Active Allergy Reactions Criticality Noted Date [...] money to get more. Never true 04/25/2024 [place] Depression Scale Answer Date Recorded [place] Depression Scale Total 8 02/28/2024 The thought [...] encounter Miscellaneous Notes * Telephone Encounter - June Cope RN - 06/30/2024 10:14 AM EDT Pt is aware and agreeable. Appt made for 07/11. * Telephone Encounter - Octavia Gamboa CRNP - 06/30/2024 9:37 AM EDT Elevated glucose test, please inform pt and have her schedule 3 hr GTT. She is also anemic - hgb 11.5. Recommend starting iron supplementation. Can use an over the countersupplement with 325 mg ferrous sulfate, once a day. Make sure it's taken at least an hour apart from her vitamin and food with dairy. Vitamin C can help absorption. If it causes constipation, she can use OTC colace 1-3x/day. Will recheck CBC in 4 weeks. DURGA Ha documented in this encounter Plan of Treatment Upcoming Encounters Date Type Department Care Team (Late st Contact Info) Description 07/11/2024 7:30 AM EDT [facility] [address] [facility] [place] [phone] Justin Coronado [address] [facility] [place] [address] 07/17/2024 9:15 AM EDT Office Visit Gynecology/Obstetrics Robina Coronado [address] [place] [address] Larissa Wang PA-C [address] [place] [address] Scheduled Orders Name Type Priority Associated Diagnoses Orde r Schedule GESTATIONAL GLUCOSE TOLERANCE, 3 HOUR Lab Routine Elevated glucose tolerance test Expected: 06/30/2024 (Approximate), Expires: 06/30/2025 Health Maintenance Due Date Last Done Comments [...] Author Reminders Care Plan OB Reminders No Daljit, Provider documented as of this encounter Medical Devices Not on filedocumented as of this encounter Visit Diagnoses Diagnosis Antepartum anemia complicating - Primary Anemia, antepartum Elevated glucose tolerance test Impaired glucose tolerance test documented in this encounter Additional Health Concerns Active Problems Noted Date Diagnosed Date OB Reminders 04/07/2024 documented as of this encounter Care Teams Rehabilitation Specialist Relationship Specialty Start Date End Date Álvaro Martínez PA-C [address] [facility] [place] [phone] PCP - General Physician Line Operator 12/31/23 documented as of this encounter
--- OUTSIDE RECORDS SUMMARY | 2024-07-12 04:48 | External Medical Summary ---
Author Name Unknown Address Unknown Organization [id number]:LABORATORY [facility] - [address] [place] [address] Laboratory Report Ordering Provider Test Date Status KEGREGG 06/30/2024 08:24:21 Final Observation Date Value Abnormality Reference (Units ) Status ABO 06/30/2024 08:24:21 B Final RH 06/30/2024 08:24:21 Negative Final RED BLOOD CELL ANTIBODY SCREEN 06/30/2024 08:24:21 Negative Final SPECIMEN EXPIRATION DATE 06/30/2024 08:24:21 07/03/2024 23:59 Final Performing Location LABORATORY [facility] - [address] [place] [address]
--- OUTSIDE RECORDS SUMMARY | 2024-07-12 04:48 | External Medical Summary ---
Author Name Unknown Address Unknown Organization [id number]:LABORATORY [facility] - [address] [place] [address] Laboratory Report Ordering Provider Test Date Status GREGG DEMPSEY 05/09/2024 11:37:08 Final Observation Date Value Abnormality Reference (Units) Status Bacteria identified in Specimen by Culture 05/09/2024 11:37:08 No significant growth Final Test: Culture, Urine, Quant itative
Specimen Source: Urine, Clean Catch
Specimen Type: Urine
Specimen Date: 05/09/2024 1137
Result Date: 05/10/2024 0957
Result Status: Final result
Resulting Lab: LABORATORY [facility]
[address]
[place] [id number]

CULTURE

No significant growth

null Performing Location LABORATORY [facility] - [address] [facility] [address]
--- OUTSIDE RECORDS SUMMARY | 2024-07-12 04:48 | External Medical Summary ---
Author Name Unknown Address Unknown Organization [id number]:[facility]ORY [facility] - [address] [place] [address] Laboratory Report Ordering Provider Test Date Status KEGREGG 06/30/2024 08:24:21 Final Observation Date Value Abnormality Reference (Units ) Status Ferritin 06/30/2024 08:24:21 8 Below low normal 13- 150 (ng/mL) Final Performing Location LABORATORY [facility] - [address] [place] [address]
--- OUTSIDE RECORDS SUMMARY | 2024-07-12 04:48 | External Medical Summary ---
Author Name Unknown Address Unknown Organization [id number]:LABORATORY [facility] - [address] [place] [address] Laboratory Report Ordering Provider Test Date Status GREGG DEMPSEY 06/30/2024 08:24:21 Final Observation Date Value Abnormality Reference (Units ) Status Treponema pallidum Ab [Presence] in Serum by Immunoassay 06/30/2024 08:24:21 Nonreactive Nonreactive Final No serologic evidence of syp hilis. No additional testing clinicially indicated at this time. Consider repeat testing in 2-4 weeks if acute or primary syphilis is suspected. Performing Location LABORATORY [facility] - [address] [place] [address]
--- OUTSIDE RECORDS SUMMARY | 2024-07-12 04:48 | External Medical Summary ---
Author Name Unknown Address Unknown Organization [id number]:LABORATORY [facility] - [address] [place] [address] Laboratory Report Ordering Provider Test Date Status GREGG DEMPSEY 06/30/2024 08:24:21 Final Observation Date Value Abnormality Reference (Units ) Status TSH 06/30/2024 08:24:21 3.86 0.27-4.20 (uIU/mL) Final Performing Location LAB[facility]ATORY [facility] - [address] [place] [address]
--- OUTSIDE RECORDS SUMMARY | 2024-07-12 04:48 | External Medical Summary | Summary of Care ---
Author Name Unknown Organization [facility] Address [address] [facility] [place] [address] Phone [phone] Care Team Providers Care Inside Contractor Sales Name Role Phone Álvaro Martínez PA-C Primary Care Provider Reason for Visit * Reason Comments Return Visit Encounter Details Date Type Department Care Team (Late st Contact Info) Description 05/09/2024 11:30 AM EST Office Visit Gynecology/Obstetric s Robina Coronado [address] [place] [address] Octavia Gamboa CRNP [address] [place] [address] Supervision of normal first , antepartum*; Moderate [...] money to get more. Never true 04/25/2024 [place] Depression Scale Answer Date Recorded [place] Depression Scale Total 8 02/28/2024 The thought [...] Gynecology/Obstetrics Robina Coronado [address] [place] [address] Octavia Gamboa CRNP [address] [place] [address] Pending Results Name Type Priority Associated Diagnoses [...] documented as of this encounter Care Teams Inside Contractor Sales Relationship Specialty Start Date End Date Álvaro Martínez PA-C [address] [facility] [place] [address] PCP - General Physician Demurrage Clerk 12/31/23 documented as of this encounter
--- OUTSIDE RECORDS SUMMARY | 2024-07-12 04:48 | External Medical Summary ---
Author Name Unknown Address Unknown Organization [id number]:LABORATORY [facility] - [facility] [place] [address] Laboratory Report Ordering Provider Test Date Status GREGG DEMPSEY 06/30/2024 08:24:21 Final Observation Date Value Abnormality Reference (Units ) Status Retic, % (auto) 06/30/2024 08:24:21 2.07 Above high normal 0.80-1.90 (%) Final Reticulocytes, Absolute 06/30/2024 08:24:21 82.0 31.3-100.1 (K/uL) Final Reticulocyte fraction, immature 06/30/2024 08:24:21 23.9 Above high normal 2.5-20.6 (%) Final Reticulocyte HGB 06/30/2024 08:24:21 30.6 29.7-37.4 (pg) Final Performing Location LABORATORY [facility] - [facility] [place] [address]
--- OUTSIDE RECORDS SUMMARY | 2024-07-12 04:48 | External Medical Summary ---
Author Name Unknown Address Unknown Organization [id number]:LABORATORY [facility] - [address] [place] [address] Laboratory Report Ordering Provider Test Date Status GREGG DEMPSEY 06/30/2024 08:24:21 Final Observation Date Value Abnormality Reference (Units ) Status Creatinine 06/30/2024 08:24:21 0.5 0.5-1.0 (mg/dL) Final Glomerular filtration rate/1.73 sq M.predicted [Volume Rate/Area] in Serum, Plasma or Blood by Creatinine-based formula (CKD-EPI) 06/30/2024 08:24:21 >90 >=60 (mL/min) Final eGFR is calculated based on the CKD-EPI 2020 equation. Performing Location LABORATORY [facility] - [address] [place] [address]
--- OUTSIDE RECORDS SUMMARY | 2024-07-12 04:48 | External Medical Summary | Summary of Care ---
Author Name Unknown Organization [facility] Address [address] [place] [address] Phone [phone] Care Team Providers Care Hand Laster Name Role Phone Álvaro Martínez PA-C Primary Care Provider Encounter Details Date Type Department Care Team (Late st Contact Info) Description 07/08/2024 Telephone [facility]st[facility]s [address] [place] [address] Jannette Lawson, [address] [place] [address] Allergies Active Allergy Reactions Criticality Noted Date [...] money to get more. Never true 04/25/2024 [place] Depression Scale Answer Date Recorded [place] Depression Scale Total 8 02/28/2024 The thought [...] encounter Miscellaneous Notes * Telephone Encounter - Jannette Lawson DO - 07/08/2024 10:02 PM EDT Renato Gomez, 28 year old, at 28w4d. Returned call to triage line, verified identity with name and . Patient reports 100.4 temp and body aches started this AM. Reports nausea, denies vomiting. Pt reports taking 500 mg Tylenol and reports that her fever went down to 99. Pt reports that her came home with similar sx today. She denies persistent painful contractions, LOF, VB or decreased FM. Advised patient to continue to take tylenol until her fever breaks and increase her hydration. . Patient agreeable. All questions answered. documented in this encounter Plan of Treatment Upcoming Encounters Date Type Department Care Team (Late st Contact Info) Description 07/11/2024 7:30 AM EDT [facility] [address] [place] [phone] Justin Coronado [address] [place] [address] 07/17/2024 9:15 AM EDT Office Visit Gynecology/Obstetrics [place] [address] Larissa Wang PA-C [address] [place] [address] Health Maintenance Due Date Last Done Comments [...] documented as of this encounter Care Teams Hand Laster Relationship Specialty Start Date End Date Álvaro Martínez PA-C [address] [facility] [place] [address] PCP - General Physician Half Backer 12/31/23 documented as of this encounter
--- OUTSIDE RECORDS SUMMARY | 2024-07-12 04:48 | External Medical Summary | Summary of Care ---
Author Name Unknown Organization [facility] Address [address] [facility] [place] [address] Phone [phone] Care Team Providers Care Sales Center Manager Name Role Phone Álvaro Martínez PA-C Primary Care Provider Encounter Details Date Type Department Care Team (Late st Contact Info) Description 07/09/2024 Orders [facility] [address] [place] [address] Octavia Gamboa CRNP [address] [place] [address] Allergies Active Allergy Reactions Criticality Noted Date [...] money to get more. Never true 04/25/2024 [place] Depression Scale Answer Date Recorded [place] Depression Scale Total 8 02/28/2024 The thought [...] Description 07/11/2024 7:30 AM EDT [facility] [address] [place] [phone] [facility] [address] [place] [place] [address] 07/17/2024 9:15 AM EDT Office Visit Gynecology/Obstetrics [facility] [address] [place] [address] Larissa Wang PA-C [address] [place] [address] Health Maintenance Due Date Last Done Comments [...] Procedure Name Priority Date/Time Associated Diagnosis Comments CHEMISTRY-OUTSIDE Routine 07/09/2024 documented in this encounter Results * (ABNORMAL) CHEMISTRY-OUTSIDE (07/09/2024) Not all results display below - see scan for full detail OUTSIDE LAB (SEE SCANNED REPORT) Comment:SEE SCAN; CBCD, UA, CMP CREATININE 0.50 OUTSIDE L AB (SEE SCANNED REPORT) EGFR >90 OUTSIDE LA B (SEE SCANNED REPORT) POTASSIUM 3.6 OUTSIDE LA B (SEE SCANNED REPORT) GLUCOSE 109 OUTSIDE LA B (SEE SCANNED REPORT) HOURS FASTING OUTSID E LAB (SEE SCANNED REPORT) TRIGLYCERIDES-OUT SIDE LAB OUTSIDE LAB (SEE SCANNED REPORT) CHOLESTEROL-OUTSI DE LAB OUTSIDE LAB (SEE SCANNED REPORT) HDL-OUTSIDE LAB OUTS MARISA LAB (SEE SCANNED REPORT) CHOL/HDL RATIO-OUTSIDE LAB OUTSIDE LA B (SEE SCANNED REPORT) LDL (CALCULATED)-OUTS [facility]ISA LAB OUTSIDE LAB (SEE SCANNED REPORT) LDL (DIRECT MEASURE)-OUTSIDE LAB OUTSIDE LAB (SEE SCANNED REPORT) HEMOGLOBIN, [id number] LAB OUTSIDE LAB (SEE SCANNED REPORT) PHOSPHORUS-OUTSID E LAB OUTSIDE LAB (SEE SCANNED REPORT) PTH-OUTSIDE LAB OUTS [facility]ISA LAB (SEE SCANNED REPORT) MICROALBUMIN RATIO-OUTSIDE LAB OUTSIDE LA B (SEE SCANNED REPORT) PROTEIN, UA-OUTSIDE LAB A 100 OUTSIDE LAB (SEE SCANNED REPORT) HGB 11.6(L) OUTSIDE LA B (SEE SCANNED REPORT) 07/09/2024 us History Per Patient LABORATORY Final Result OUTSIDE LAB (SEE SCANNED REPORT) documented in this encounter Additional Health Concerns Active Problems Noted Date Diagnosed Date OB Reminders 04/07/2024 documented as of this encounter Care Teams Sales Center Manager Relationship Specialty Start Date End Date Álvaro Martínez PA-C [address] [facility] [place] [address] PCP - General Physician Rn Staff 12/31/23 documented as of this encounter
--- OUTSIDE RECORDS SUMMARY | 2024-07-12 04:48 | External Medical Summary | Summary of Care ---
Author Name Unknown Organization [facility] Address [address] [facility] [place] [address] Phone [phone] Care Team Providers Care Yoker Name Role Phone Álvaro Martínez PA-C Primary Care Provider Reason for Visit * Reason Comments Return Visit Encounter Details Date Type Department Care Team (Late st Contact Info) Description 06/30/2024 8:45 AM EDT Office Visit Gynecology/Obstetric s Robina Coronado [address] [place] [address] Octavia Gamboa CRNP [address] [place] [phone] Supervision of normal first , antepartum*; Moderate episode of recurrent major depressive disorder (HCC); PCOS (polycystic ovarian syndrome); Rh negative status during in second trimester; [...] money to get more. Never true 04/25/2024 [place] Depression Scale Answer Date Recorded [place] Depression Scale Total 8 02/28/2024 The thought [...] Sign Reading Time Taken Comments Blood Pressure 102/64 06/30/2024 8:30 AM EDT Pulse - - Temperature - - Respiratory Rate - - Oxygen Saturation - - Inhaled Oxygen Concentration - - Weight 72.6 kg (160 lb) 06/30/2024 8:30 AM EDT Height - - Body Mass Index 30.23 12/31/2023 11:18 AM EDT documented in this encounter Patient Instructions * Patient Instructions* Octavia Gamboa CRNP - 06/30/2024 8:41 AM EDT Round Ligament Pain: Causes and Treatment Round ligament pain is most common during the 2nd and 3rd trimesters. Women may have a sharp pain in their abdomen or hip area that is either on one side or both. Some women even report pain that extends into the groin area. Round ligament pain is considered a normal part of as your body goes through many different changes. What causes round ligament pain? The round ligament supports the uterus and stretches during . It connects the front portion of the uterus to the groin. These ligaments contract and relax like muscles, but much more slowly. Any movement (including going from a sitting to standing position quickly, laughing, or coughing) that stretches these ligaments by making them contract quickly, can cause a woman to experience pain.Round ligament pain should only last for a few seconds. Stretching is the best way to loosen things up and prevent round ligament pain. Here are our top round ligament pain stretches to get you started: #1 CAT-COW Start on your hands and knees, shoulders above wrists and hips above knees. Breathe in and drop your stomach down, arching your back and looking upward. Then, breathe out and round your upper back toward the ceiling, allowing your head to drop and face your stomach. #2 HIP FLEXOR STRETCH In all fours position with your arm resting on a chair or birthing ball, bring the right leg forward while extending/straightening the left leg back until you feel a stretch in the front of the left thigh. Hold the position for 5-10 seconds. Repeat on the opposite side. #3 SIDE LYING SAVASANA Lie on your left side in a position, tuck your left arm beneath your head, and place a pillowbetween your legs to relieve pressure on your lower back. Flex your hips and remain in this position for several minutes. Inhale deeply as you stretch. #4 THE PELVIC CLOCK Sit on a birthing ball or chair with your feet flat on the floor. Bring your hands to your hips so you can feel the movement in your pelvis as you stretch. Now, imagine a clock resting on your pelvis--with your navel at 12 o’clock and pubic bone at 6 o’clock. Engage your abs and lengthen your spine. Inhale and tilt your pelvis toward a 3 o’clock position. Continue on the inhale and move around the clock, creating a small arch in your lower back. Exhale and bring your pelvis to 9 o’clock. Continue your exhale until you reach a neutral 12 o’clock position. #5 BUTTERFLY STRETCH Sit upright on a firm surface. Place the soles of your feet together and pulse your legs up and down, like the wings of a butterfly. You should feel a stretch in your inner thighs. For an even deeperstretch, place your hands on your knees for resistance. Other Ways to Relieve Round Ligament Pain While round ligament pain stretches are the best way to reduce pain, there are a few other things you can try to alleviate the discomfort : A belly band to give your bump some extra support Hydration to improve circulation to your growing tissue Rest to allow your muscles to recover from any movement Massage to give that area some extra TLC Acetaminophen to get some medicated pain relief documented in this encounter Progress Notes * Octavia Gamboa CRNP - 06/30/2024 8:40 AM EDT 27w3d Baby is very active. No leaking/bleeding or ctx. Completing labs. Does not need RhoGAM as FOB is Rh neg. Given information on comfort measures for round ligament pain. Recommend small frequent meals, Tumsfor heartburn. Pt wants to defer Tdap until next visit. Encouraged childbirth classes. Return in 2 weeks. DURGA Ha * Mariya Aguilar LPN - 06/30/2024 8:30 AM EDT 27w3d Denies vaginal bleeding/rom + movement Round ligament pain Has been having vomiting mostly in the evenings Would like tdap next visit documented in this encounter Plan of Treatment Upcoming Encounters Date Type Department Care Team (Late st Contact Info) Description 07/11/2024 7:30 AM EDT Laboratory Laboratory, Rob[facility] [address] [place] [phone] [facility]in [facility] [address] [place] [address] 07/17/2024 9:15 AM EDT Office Visit Gynecology/Obstetrics Robina [facility] [address] [place] [address] Larissa Wang PA-C [address] [place] [address] Health Maintenance Due Date Last Done Comments [...] (HCC) PCOS (polycystic ovarian syndrome) Polycystic ovaries Rh negative status during in second trimester Urinary tract infection in mother during first trimester of documented in this encounter Additional Health Concerns Active Problems Noted Date Diagnosed Date OB Reminders 04/07/2024 documented as of this encounter Care Teams Yoker Relationship Specialty Start Date End Date Álvaro Martínez PA-C [address] [facility] [place] [address] PCP - General Physician Director Of Optimization 12/31/23 documented as of this encounter
--- OUTSIDE RECORDS SUMMARY | 2024-07-12 04:48 | External Medical Summary ---
Author Name Unknown Address Unknown Organization K0G:LABORATORY [facility] - [address] [place] [address] Laboratory Report Ordering Provider Test Date Status GREGG DEMPSEY 06/30/2024 08:24:21 Final Observation Date Value Abnormality Reference (Units ) Status Glucose [Moles/volume] in Serum or Plasma --1 hour post 50 g glucose PO 06/30/2024 08:24:21 183 Above high normal 70-129 (mg/dL) Final Performing Location LAB[facility]ATORY [facility] 0 - [address] [place] [address]
--- OUTSIDE RECORDS SUMMARY | 2024-07-12 04:48 | External Medical Summary ---
Author Name Unknown Address Unknown Organization K01:[facility]ORY [facility] [place] [address] [place] [address] Laboratory Report Ordering Provider Test Date Status GREGG DEMPSEY 06/30/2024 08:24:21 Final Observation Date Value Abnormality Reference (Units ) Status Folic Acid 06/30/2024 08:24:21 9.0 >4.5 (ng/ mL) Final Performing Location LAB[facility]ATORY [facility] - [address] [place] [address]
--- OUTSIDE RECORDS SUMMARY | 2024-07-12 04:48 | External Medical Summary | Summary of Care ---
Author Name Unknown Organization [facility] Address [address] [facility] [place] [address] Phone [phone] Care Team Providers Care Flame Gouger Name Role Phone Álvaro Martínez PA-C Primary Care Provider Reason for Visit * Reason Comments Return Visit Encounter Details Date Type Department Care Team (Late st Contact Info) Description 06/13/2024 8:30 AM EDT Office Visit Gynecology/Obstetric s Robina Coronado [address] [place] [address] Octavia Gamboa CRNP [address] [place] [phone] Supervision of normal first , antepartum*; Moderate [...] as of this encounter (statuses as of 06/13/2024) Medications 6.75-0.2 MG Oral Tablet Take by mouth. Unsure of dosage. Active buPROPion HCl ER (XL) 150 MG Oral Tablet Extended Release 24 Hour (Wellbutrin XL) Take 1 Tablet by mouth in the morning. 30 Tablet 5 4 06/14/19 25 Discontinu ed(Medicat ion List Clean Up) documented as of this encounter (statuses as of 06/13/2024) Active Problems Problem Noted Date Diagnosed Date [...] as of this encounter (statuses as of 06/13/2024) Immunizations Name Administration Dates Next Due DTaP [...] money to get more. Never true 04/25/2024 [place] Depression Scale Answer Date Recorded [place] Depression Scale Total 8 02/28/2024 The thought [...] Sign Reading Time Taken Comments Blood Pressure 104/60 06/13/2024 8:17 AM EDT Pulse - - Temperature - - Respiratory Rate - - Oxygen Saturation - - Inhaled Oxygen Concentration - - Weight 72.6 kg (160 lb) 06/13/2024 8:17 AM EDT Height - - Body Mass Index 30.23 12/31/2023 11:18 AM EDT documented in this encounter Progress Notes * Octavia Gamboa CRNP - 06/13/2024 8:46 AM EDT 25w0d Doing well, + movement. No cramping or bleeding. FOB is Rh neg, blood type sent in MyG message. Discussed labs and Tdap at next visit. Mood has been better. Interested in Paragard IUD , discussed efficacy and s/e. 2 week return DURGA Ha documented in this encounter Nursing Notes * Mariya Aguilar LPN - 06/13/2024 8:27 AM EDT 25w0d Denies vaginal bleeding/rom + movement Pt sent FOB's blood type info in my chart message documented in this encounter Plan of Treatment Upcoming Encounters Date Type Department Care Team (Late st Contact Info) Description 06/30/2024 8:45 AM EDT Office Visit Gynecology/Obstetrics Robina Coronado [address] [place] [address] Backer, DURGA Charles [address] [place] [address] Scheduled Orders Name Type Priority Associated Diagnoses Orde r Schedule 50-G GESTATIONAL GLUCOSE, 1 HOUR Lab Routine Supervision of normal first , antepartum Expected: 06/27/2024 (Approximate), Expires: 06/13/2025 CBC WITH WBC DIFFERENTIAL AND ANEMIA REFLEX WORKUP Lab Routine Supervision of normal first , antepartum Expected: 06/27/2024 (Approximate), Expires: 06/13/2025 SYPHILIS ANTIBODY SCREEN WITH REFLEX TO RPR Lab Routine Supervision of normal first , antepartum Expected: 06/27/2024 (Approximate), Expires: 06/13/2025 TYPE AND SCREEN Lab Routine Supervision of normal first , antepartum Rh negative status during in second trimester Expected: 06/27/2024 (Approximate), Expires: 07/13/2025 Health Maintenance Due Date Last Done Comments [...] documented as of this encounter Care Teams Flame Gouger Relationship Specialty Start Date End Date Álvaro Martínez PA-C [address] [facility] [place] [address] PCP - General Physician Loader Unloader 12/31/23 documented as of this encounter
--- OUTSIDE RECORDS SUMMARY | 2024-07-12 04:48 | External Medical Summary | Summary of Care ---
Author Name Unknown Organization [facility] Address [address] [facility] [place] [address] Phone [phone] Care Team Providers Care Risk Management Specialist Name Role Phone Álvaro Martínez PA-C Primary Care Provider Reason for Visit * Reason Onset Date Comments Advice 05/13/2024 Encounter Details Date Type Department Care Team (Late st Contact Info) Description 05/13/2024 Telephone Gynecology/Obstetrics [facility] [address] [place] [address] Octavia Gamboa CRNP [address] [place] [address] Advice Allergies Active Allergy Reactions Criticality Noted Date Comments Covid-19 (Mrna) Vaccine 12/31/2023 Any covid vaccine Influenza Virus Vaccine 12/31/2023 Any flu vaccine Latex 12/31/2023 rash documented as of this encounter (statuses as of 05/13/2024) Medications buPROPion HCl ER (XL) 150 MG Oral Tablet Extended Release 24 Hour (Wellbutrin XL) Take 1 Tablet by mouth in the morning. 30 Tablet 5 Active Additional Information Patient not taking.Reported on 02/28/2024 6.75-0.2 MG Oral Tablet Take by mouth. Unsure of dosage. Active documented as of this encounter (statuses as of 05/13/2024) Active Problems Problem Noted Date Diagnosed Date [...] as of this encounter (statuses as of 05/13/2024) Immunizations Name Administration Dates Next Due DTaP [...] money to get more. Never true 04/25/2024 [place] Depression Scale Answer Date Recorded [place] Depression Scale Total 8 02/28/2024 The thought [...] encounter Miscellaneous Notes * Telephone Encounter - Octavia Gamboa CRNP - 05/13/2024 11:21 AM EDT She can take zyrtec or claritin. DURGA Ha * Telephone Encounter - Massiel Martinez fire watchman - 05/13/2024 10:58 AM EDT Patient calling stating she is 20 weeks and is asking what she can take for allergies. Please reach out to patient at [phone] Thank you, Massiel Martinez Rock Picker [facility] 05/13/2024,11:00 AM documented in this encounter Plan of Treatment Upcoming Encounters Date Type Department Care Team (Late st Contact Info) Description 06/13/2024 8:30 AM EDT [facility] [address] [place] [address] Octavia Gamboa CRNP [address] [place] [address] Health Maintenance Due Date Last Done Comments [...] documented as of this encounter Care Teams Risk Management Specialist Relationship Specialty Start Date End Date Álvaro Martínez PA-C [address] [facility] [place] [address] PCP - General Physician Atv Mechanic 12/31/23 documented as of this encounter
--- OUTSIDE RECORDS SUMMARY | 2024-07-12 04:49 | External Medical Summary ---
Author Name Unknown Address Unknown Organization K01:[facility] [address] [place] [address] Laboratory Report Ordering Provider Test Date Status NIURKA JONES 02/28/2024 09:55:00 Final Observation Date Value Abnormality Reference (Units ) Status Hep C Ab 02/28/2024 09:55:00 Negative Negative Final Further HCV quantitative clarence ting not performed per protocol. Performing Location [facility] - [address] [place] [address]
--- OUTSIDE RECORDS SUMMARY | 2024-07-12 04:49 | External Medical Summary | Summary of Care ---
Author Name Unknown Organization [facility] Address [address] [facility] [place] [address] Phone [phone] Care Team Providers Care Multiple Needle Stitcher Name Role Phone Álvaro Martínez PA-C Primary Care Provider Reason for Visit * Reason Onset Date Comments Test Results 03/07/2024 Encounter Details Date Type Department Care Team (Late st Contact Info) Description 03/07/2024 Telephone Gynecology/Obstetrics [facility] [address] [place] [address] Octavia Gamboa CRNP [address] [place] [phone] Test Results Allergies Active Allergy Reactions Criticality Noted Date Comments Covid-19 (Mrna) Vaccine 12/31/2023 Any covid vaccine Influenza Virus Vaccine 12/31/2023 Any flu vaccine Latex 12/31/2023 rash documented as of this encounter (statuses as of 03/12/2024) Medications Fluticasone Propionate 50 MCG/ACT Nasal Suspension (Flonase Allergy Relief) Administer 1 Page into nostril in the morning. Active Loratadine 10 MG Oral Capsule (Claritin) Take 1 Capsule by mouth in the morning. Active buPROPion HCl ER (XL) 150 MG Oral Tablet Extended Release 24 Hour (Wellbutrin XL) Take 1 Tablet by mouth in the morning. 30 Tablet 5 Active Additional Information Patient not taking.Reported on 02/28/2024 6.75-0.2 MG Oral Tablet Take by mouth. Unsure of dosage. Active documented as of this encounter (statuses as of 03/12/2024) Active Problems Problem Noted Date Diagnosed Date [...] as of this encounter (statuses as of 03/12/2024) Immunizations Name Administration Dates Next Due DTaP [...] you got the money to buy more. Patient declined Within the past 12 months, t he food you bought just didn't last and you didn't have money to get more. Patient declined [place] Depression Scale Answer Date Recorded [place] Depression Scale Total 8 02/28/2024 The thought of harming myself has occurred to me . Never 02/28/2024 Childcare Answer Date Recorded Do you feel overwhelmed with taking care of a child, family member or friend? No 12/31/2023 Does your family need help f inding childcare? (Household - for ages 0-17 years) Not on file 12/31/2023 Clothing Answer Date Recorded Have you been unable to get clothing when it was really needed? No 12/31/2023 Is your family able to get c lothes or diapers when needed? (Household - for ages 0-17 years) Not on file 12/31/2023 Personal Safety Answer Date Recorded Do you feel unsafe or have concerns for your saf ety? No 12/31/2023 Do you have concerns for you r family's safety? (Household - for ages 0-17 years) Not on file 12/31/2023 Utilities Answer Date Recorded Do you have trouble paying y our heating, water, or electric bill? No 12/31/2023 Is your family able to pay t he heat, water, or electric bill? (Household - for ages 0-17 years) Not on file 12/31/2023 Does your family have access to good internet? (Household - for ages 0-17 years) Not on file 12/31/2023 Employment Status Answer Date Recorded Are you unemployed or without regular income? No 12/31/2023 Does the household have a re gular source of income? (Household - for ages 0-17 years) Not on file 12/31/2023 Social Connections Answer Date Recorded How often do you feel lonely or isolated from th ose around you? Never 12/31/2023 Financial Resource Strain Answer Date R ecorded Do you have any trouble payi ng for your medications, or do you think you might in the future? No 12/31/2023 Does your family have troubl e paying for medicine? (Household - for ages 0-17 years) Not on file 12/31/2023 Transportation Needs Answer Date Record ed Do you have trouble getting a ride to medical visits or work? (Adult - for ages 18 years and over) Not on file 12/31/2023 Does your family have a hard time getting a ride to doctors visits? (Household - for ages 0-17 years) Not on file 12/31/2023 Has lack of transportation k ept you from medical appointments, meetings, work, or from getting things needed for daily living? Check all that apply. No 12/31/2023 Do you (or your family) have trouble finding or paying for a ride (transportation)? (Household - for ages 0-17 years) Not on file 12/31/2023 Housing Stability Answer Date Recorded Do you currently live in a s helter or have no steady place to sleep at night? No 12/31/2023 Do you think you are at risk of becoming homeless? (Adult - for ages 18 years and over) Not on file 12/31/2023 Does your family worry about paying for your home or becoming homeless? (Household - for ages 0-17 years) Not on file 1 Are you homeless or worried that you might be in the future? No 12/31/2023 Are you (or your family) sarahi eless [...] ages 0-17 years) Not on file 12/31/2023 Estimated Date of Delivery Comme nts [...] encounter Miscellaneous Notes * Telephone Encounter - Mena Ann OSA - 03/12/2024 9:31 AM EST Pt rescheduled. * Telephone Encounter - June Cope RN - 03/07/2024 11:55 AM EST Spoke with pt. She is aware. Losing insurance until 04/05 so asking to move her appt back until after04/05 and schedule colpo for then as well. Will have Mena call pt to reschedule randy/ lab and colpo * Telephone Encounter - Octavia Gamboa CRNP - 03/07/2024 11:28 AM EST [facility] pt: pap ASCUS +HPV. Recommend colposcopy in 2nd trimester. DURGA Ha documented in this encounter Plan of Treatment Upcoming Encounters Date Type Department Care Team (Late st Contact Info) Description 04/11/2024 8:30 AM EST [facility] [address] [place] [phone] Justin Coronado [address] [place] [address] 04/11/2024 9:00 AM EST Office Visit Gynecology/Obstetrics [place] [address] Octavia Gamboa CRNP [address] [place] [address] Health Maintenance Due Date Last Done Comments [...] this topic documented as of this encounter Medical Devices Not on filedocumented as of this encounter Care Teams Multiple Needle Stitcher Relationship Specialty Start Date End Date Álvaro Martínez PA-C [address] [facility] [place] [address] PCP - General Physician Underwriter 12/31/23 documented as of this encounter
--- OUTSIDE RECORDS SUMMARY | 2024-07-12 04:49 | External Medical Summary | Summary of Care ---
Author Name Unknown Organization [facility] Address [address] [facility] [place] [address] Phone [phone] Care Team Providers Care Electromedical Service Engineer Name Role Phone Álvaro Martínez PA-C Primary Care Provider Reason for Visit * Reason Comments Outpatient Testing Encounter Details Date Type Department Care Team (Late st Contact Info) Description 04/11/2024 8:30 AM EST Laboratory Laboratory, [facility] [address] [facility] [place] [phone] [facility] [address] [facility] [place] [address] Encounter for supervision of normal first in first trimester; PCOS (polycystic ovarian syndrome) Allergies Active Allergy Reactions Criticality Noted Date Comments Covid-19 (Mrna) Vaccine 12/31/2023 Any covid vaccine Influenza Virus Vaccine 12/31/2023 Any flu vaccine Latex 12/31/2023 rash documented as of this encounter (statuses as of 04/11/2024) Medications buPROPion HCl ER (XL) 150 MG Oral Tablet Extended Release 24 Hour (Wellbutrin XL) Take 1 Tablet by mouth in the morning. 30 Tablet 5 Active Additional Information Patient not taking.Reported on 02/28/2024 6.75-0.2 MG Oral Tablet Take by mouth. Unsure of dosage. Active documented as of this encounter (statuses as of 04/11/2024) Active Problems Problem Noted Date Diagnosed Date [...] as of this encounter (statuses as of 04/11/2024) Immunizations Name Administration Dates Next Due DTaP [...] have money to get more. Patient declined [place] Depression Scale Answer Date Recorded [place] Depression Scale Total 8 02/28/2024 The thought [...] have money to get more. Patient declined Do you need food for this week? No 12/31/2023 Estimated Date of Delivery Comme nts [...] Team (Late st Contact Info) Description 05/09/2024 9:45 AM EST [facility] [address] [place] [phone] 05/09/2024 11:30 AM EST Office Visit Gynecology/Obstetrics [facility] [address] [place] [address] Backer, DURGA Charles [address] [place] [address] Health Maintenance Due Date Last Done Comments [...] Author Reminders Care Plan OB Reminders No Pankaj Bocanegra documented as of this encounter Medical Devices Not on filedocumented as of this encounter Procedures Procedure Name Priority Date/Time Associated Diagnosis Comments 50-G GESTATIONAL GLUCOSE, 1 HOUR Routine 04/11/2024 9:21 AM EST Encounter for supervision of normal first in first trimester PCOS (polycystic ovarian syndrome) documented in this encounter Results * 50-G GESTATIONAL GLUCOSE, 1 HOUR (04/11/2024 9:21 AM EST) 50-g Gestational Glucose, 1 Hour 112 70 - 129 mg/dL 04/11/2024 10:11 AM EST [facility] [place] [facility] 57-10 Blood Venous blood specimen / Unknown Venipuncture / Unknown 04/11/2024 9:21 AM EST 04/11/2024 9:21 AM EST Henny [facility] LAB BLOOD ORDERABLES Final Re sult [facility] [place] 57-[address] [place] [phone] documented in this encounter Visit Diagnoses Diagnosis Encounter for supervision of normal first in first trimester Supervision of normal first PCOS (polycystic ovarian syndrome) Polycystic ovaries documented in this encounter Additional Health Concerns Active Problems Noted Date Diagnosed Date OB Reminders 04/07/2024 documented as of this encounter Care Teams Electromedical Service Engineer Relationship Specialty Start Date End Date Álvaro Martínez PA-C [address] [place] [address] PCP - General Physician Piano Regulator Inspector 12/31/23 documented as of this encounter
--- OUTSIDE RECORDS SUMMARY | 2024-07-12 04:49 | External Medical Summary ---
Author Name Unknown Address Unknown Organization K01:[facility] [place] [address] [facility] [place] [address] Laboratory Report Ordering Provider Test Date Status JENNIFER CHACKO 02/08/2024 14:07:09 Final Observation Date Value Abnormality Reference (Units ) Status Adenovirus DNA [Presence] in Nasopharynx by LIZA with non-probe detection 02/08/2024 14:07:09 Negative Negative Final Human coronavirus 229E RNA [Presence] in Nasopharynx by LIZA with non-probe detection 02/08/2024 14:07:09 Negative Negative Final Human coronavirus HKU1 RNA [Presence] in Nasopharynx by LIZA with non-probe detection 02/08/2024 14:07:09 Negative Negative Final Human coronavirus NL63 RNA [Presence] in Nasopharynx by LIZA with non-probe detection 02/08/2024 14:07:09 Negative Negative Final Human coronavirus OC43 RNA [Presence] in Nasopharynx by LIZA with non-probe detection 02/08/2024 14:07:09 Negative Negative Final SARS-CoV-2 (COVID-19) RNA [Presence] in Nasopharynx by LIZA with non-probe detection 02/08/2024 14:07:09 Negative Negative Final Human metapneumovirus RNA [Presence] in Nasopharynx by LIZA with non-probe detection 02/08/2024 14:07:09 Negative Negative Final Rhinovirus+Enterovirus RNA [Presence] in Nasopharynx by LIZA with non-probe detection 02/08/2024 14:07:09 Negative Negative Final Influenza virus A RNA [Presence] in Nasopharynx by LIZA with non-probe detection 02/08/2024 14:07:09 Negative Negative Final Influenza virus B RNA [Presence] in Nasopharynx by LIZA with non-probe detection 02/08/2024 14:07:09 Negative Negative Final Parainfluenza virus 1 RNA [Presence] in Nasopharynx by LIZA with non-probe detection 02/08/2024 14:07:09 Negative Negative Final Parainfluenza virus 2 RNA [Presence] in Nasopharynx by LIZA with non-probe detection 02/08/2024 14:07:09 Negative Negative Final Parainfluenza virus 3 RNA [Presence] in Nasopharynx by LIZA with non-probe detection 02/08/2024 14:07:09 Negative Negative Final Parainfluenza virus 4 RNA [Presence] in Nasopharynx by LIZA with non-probe detection 02/08/2024 14:07:09 Negative Negative Final Respiratory syncytial virus RNA [Presence] in Nasopharynx by LIZA with non-probe detection 02/08/2024 14:07:09 Negative Negative Final Bordetella pertussis.pertussis toxin promoter region [Presence] in Nasopharynx by LIZA with non-probe detection 02/08/2024 14:07:09 Negative Negative Final Chlamydophila pneumoniae DNA [Presence] in Nasopharynx by LIZA with non-probe detection 02/08/2024 14:07:09 Negative Negative Final Mycoplasma pneumoniae DNA [Presence] in Nasopharynx by LIZA with non-probe detection 02/08/2024 14:07:09 Negative Negative Final Bordetella parapertussis [id number] DNA [Presence] in Nasopharynx by LIZA with non-probe detection 02/08/2024 14:07:09 Negative Negative Final The primers that detect Rhin ovirus may cross react with some Enterorviruses. The validation of bronchial specimens, tracheal aspirates, and throats for this assay was developed and performance characteristics determined by [employer]. �The validation of alternate specimen types has not been cleared or approved by the U.S. Food and Drug Administration (FDA). �It has been determined that such clearance or approval is not necessary. Performing Location [facility] [place] [address] [facility] [address]
--- OUTSIDE RECORDS SUMMARY | 2024-07-12 04:49 | External Medical Summary | Summary of Care ---
Author Name Unknown Organization [facility] Address [address] [place] [address] Phone [phone] Care Team Providers Care Car Rental Sales Assistant Name Role Phone Álvaro Martínez PA-C Primary Care Provider Reason for Visit * Reason Comments Acute Patient c/o sneezing , runny nose, diarrhea, body aches. Had warm temp this morning. Minimal sore throat two days ago but not any more. Denies any cough. Patient is suspected to be . Has had 3 positive tests and lack of menstruation since December. Encounter Details Date Type Department Care Team (Late st Contact Info) Description 02/08/2024 1:40 PM EST Office Visit General Internal Medicine [facility] [address] [facility] [place] [address] Camille Fay MD [address] [facility] [place] [address] Upper respiratory tract infection, unspecified type*; PCOS (polycystic ovarian syndrome); PTSD (post-traumatic stress disorder) Allergies Active Allergy Reactions Criticality Noted Date Comments Covid-19 (Mrna) Vaccine 12/31/2023 Any covid vaccine Influenza Virus Vaccine 12/31/2023 Any flu vaccine Latex 12/31/2023 rash documented as of this encounter (statuses as of 02/17/2024) Medications Fluticasone Propionate 50 MCG/ACT Nasal Suspension (Flonase Allergy Relief) Administer 1 [place] into nostril in the morning. Active Loratadine 10 MG Oral Capsule (Claritin) Take 1 Capsule by mouth in the morning. Active buPROPion HCl ER (XL) 150 MG Oral Tablet Extended Release 24 Hour (Wellbutrin XL) Take 1 Tablet by mouth in the morning. 30 Tablet 5 Active Additional Information Patient not taking.Reported on 02/13/2024 6.75-0.2 MG Oral Tablet Take by mouth. Unsure of dosage. Active documented as of this encounter (statuses as of 02/17/2024) Active Problems Problem Noted Date Diagnosed Date Moderate episode of recurrent major depressive d isorder 12/31/2023 PCOS (polycystic ovarian syndrome) 12/31/2023 PTSD (post-traumatic stress disorder) 12/31/2023 documented as of this encounter (statuses as of 02/17/2024) Immunizations Name Administration Dates Next Due DTaP [...] Types Packs/Day Years Used Date Smoking Tobacco: Former Cigarettes Smokeless Tobacco: Never Alcohol Use Standard [...] have money to get more. Patient declined Childcare Answer Date Recorded Do you feel [...] ages 0-17 years) Not on file 12/31/2023 Comments Yes Sex and Gender Information Value Date Recorded Sex Assigned at Female 12/31/2023 11:17 AM EDT Legal Sex Female 6:09 PM EDT Gender Identity Female 12/31/2023 11:17 AM EDT Sexual Orientation Straight 12/31/2023 11 :17 AM EDT Travel History Travel Start Travel End [place] 01/30/2024 02/03/2024 documented as of this encounter Last Filed Vital Signs Vital Sign Reading Time Taken Comments Blood Pressure 112/66 02/08/2024 1:37 PM EST Pulse 79 02/08/2024 1:37 PM EST Temperature 36.6 °C (97.9 °F) 02/08/2024 1:37 PM ES T Respiratory Rate - - Oxygen Saturation 100% 02/08/2024 1:37 PM EST Inhaled Oxygen Concentration - - Weight 63.8 kg (140 lb 11.2 oz) 02/08/2024 1:37 PM EST Height - - Body Mass Index 26.59 12/31/2023 11:18 AM EDT documented in this encounter Progress Notes * Camille Fay MD - 02/08/2024 1:45 PM EST Images from the original note were not included. History of Present Illness Renato Gomez is a 28 year old female that presents for Acute (Patient c/o sneezing, runny nose, diarrhea, body aches. Had warm temp this morning. Minimal sore throat two days ago but not any more. Denies any cough. Patient is suspected to be . Has had 3 positive tests and lack of menstruation since December. /) Viral Upper Respiratory Infection This is a new problem. The current episode started yesterday. There has been no fever. Associated symptoms include congestion, coughing, headaches, joint pain, rhinorrhea, sinus pain, sneezing and a sore throat. Pertinent negatives include no chest pain, diarrhea or wheezing. She has tried increased fluids and acetaminophen for the symptoms. The treatment provided no relief. Physical Exam Vitals: 02/08/24 1337 Temp: 97.9 °F (36.6 °C) Pulse: 79 SpO2: 100% BP: 112/66 Physical Exam Constitutional: General: She is not in acute distress. Appearance: Normal appearance. HENT: Head: Normocephalic. Right Ear: Ear canal and external ear normal. Left Ear: Ear canal and external ear normal. Nose: Congestion and rhinorrhea present. Mouth/Throat: Mouth: Mucous membranes are moist. Pharynx: Posterior oropharyngeal erythema present. No oropharyngeal exudate. Cardiovascular: Rate and Rhythm: Normal rate and regular rhythm. Heart sounds: No murmur heard. No gallop. Pulmonary: Effort: Pulmonary effort is normal. Breath sounds: No stridor. No wheezing or rhonchi. Chest: Chest wall: No tenderness. Abdominal: General: There is no distension. Palpations: Abdomen is soft. There is no mass. Tenderness: There is no abdominal tenderness. Musculoskeletal: General: No swelling or tenderness. Cervical back: No rigidity or tenderness. Lymphadenopathy: Cervical: No cervical adenopathy. Neurological: Mental Status: She is alert. I have reviewed the following results: Assessment and Plan Upper respiratory tract infection, unspecified type Natural course of viral infection discussed Conservative measures like rest, fluid, humidifier in room Saline nasal drop 2-3 times a day OTC decongestant for congestion Tylenol every 6 hours for fever Ibuprofen every 6 hours for pain with food - RESPIRATORY PATHOGEN PANEL, PCR; Future - RESPIRATORY PATHOGEN PANEL, PCR PCOS (polycystic ovarian syndrome) PTSD (post-traumatic stress disorder) Wrap-Up Time: I spent a total of 20-29 minutes (exact time 25 mins) on the date of service in preparation, delivery, and documentation of the care provided to Renato Gomez excluding any time spent in the performance of separately billed services. documented in this encounter Nursing Notes * Nany Oakley MED ASSIST - 02/08/2024 1:40 PM EST Chief Complaint Patient presents with Acute Patient c/o sneezing, runny nose, diarrhea, body aches. Had warm temp this morning. Minimal sore throat two days ago but not any more. Denies any cough. Patient is suspected to be . Has had 3positive tests and lack of menstruation since December. documented in this encounter Plan of Treatment Upcoming Encounters Date Type Department Care Team (Late st Contact Info) Description 02/28/2024 8:15 AM EST Imaging Radiology [facility] 2nd Floor, [place] [address] [facility] [place] [address] 02/28/2024 9:15 AM EST Office Visit Gynecology/Obstetrics [facility] [address] [facility] [place] [address] Henny Santana CRNP [address] [facility] [place] [address] Health Maintenance Due Date Last Done Comments HIV Screening 12/06/2010 Hepatitis C Screening 12/06/2013 Pap Smear 12/06/2016 COVID-19 Vaccine ( season) 2023 Influenza Vaccine (FLU shot) (#1) 2023 Depression Monitoring 12/30/2024 12/31/2023, 024 DTap/Tdap Vaccines (7 - Td or Tdap) 07/29/2032 07/29/2022, 10/31/2001, 04/29/1997, Additional history exists Hepatitis B Vaccine Completed 09/04/1996, 02/13/1996, 01/03/1996 MENINGOCOCCAL (MENACTRA/MENVEO) Aged Out 07/10/2007 No longer eligible based on patient's age to complete this topic HPV (Gardasil) Vaccine Aged Out No lo nger eligible based on patient's age to complete this topic Pneumococcal Vaccine: Pediatrics (0 to 5 Years) and At-Risk Patients (6 to 64 Years) Aged Out No longer eligible based on patient's age to complete this topic documented as of this encounter Medical Devices Not on filedocumented as of this encounter Procedures Procedure Name Priority Date/Time Associated Diagnosis Comments RESPIRATORY PATHOGEN PANEL, PCR Routine 02/08/2024 2:07 PM EST Upper respiratory tract infection, unspecified type documented in this encounter Results * RESPIRATORY PATHOGEN PANEL, PCR (02/08/2024 2:07 PM EST) Adenovirus by PCR Negative Negative 11:36 PM EST [facility] Coronavirus 229E by PCR Negative Negative 02/08/2024 11:36 PM EST [facility] Coronavirus HKU1 by PCR Negative Negative 02/08/2024 11:36 PM EST [facility] Coronavirus NL63 by PCR Negative Negative 02/08/2024 11:36 PM EST [facility] Coronavirus OC43 by PCR Negative Negative 02/08/2024 11:36 PM EST [facility] Coronavirus SARS-CoV-2 by PCR Negative Negative 02/08/2024 11:36 PM EST [facility] Human Metapneumovirus by PCR Negative Negative 02/08/2024 11:36 PM EST [facility] Rhinovirus/Enterovi cynthia by PCR Negative Negative 02/08/2024 11:36 PM EST [facility] Influenza A Virus by PCR Negative Negative 02/08/2024 11:36 PM EST [facility] Influenza B Virus by PCR Negative Negative 02/08/2024 11:36 PM EST [facility] Parainfluenza Virus 1 by PCR Negative Negative 02/08/2024 11:36 PM EST [facility] Parainfluenza Virus 2 by PCR Negative Negative 02/08/2024 11:36 PM EST [facility] Parainfluenza Virus 3 by PCR Negative Negative 02/08/2024 11:36 PM EST [facility] Parainfluenza Virus 4 by PCR Negative Negative 02/08/2024 11:36 PM EST [facility] Respiratory Syncytial Virus by PCR Negative Negative 02/08/2024 11:36 PM EST [facility] Bordetella pertussis by PCR Negative Negative 02/08/2024 11:36 PM EST [facility] Chlamydia pneumoniae by PCR Negative Negative 02/08/2024 11:36 PM EST [facility] Mycoplasma pneumoniae by PCR Negative Negative 02/08/2024 11:36 PM EST [facility] Bordetella parapertussis by PCR Negative Negative 02/08/2024 11:36 PM EST [facility] Comment: The primers that detect Rhinovirus may cross react with some Enterorviruses. The validation of bronchial specimens, tracheal aspirates, and throats for this assay was developed and performance characteristics determined by [employer]. The validation of alternate specimen types has not been cleared or approved by the U.S. Food and Drug Administration (FDA). It has been determined that such clearance or approval is not necessary. Upper Respiratory Nasopharyngeal swab / Unknown Non-blood Collection / Unknown 02/08/2024 2:07 PM EST 02/08/2024 2:20 PM EST Camille Fay MD LAB MICRO - GENERAL ORDERABLES Final Result [facility] [address] [place] [address] documented in this encounter Visit Diagnoses Diagnosis Upper respiratory tract infection, unspecified type- Primary PCOS (polycystic ovarian syndrome) Polycystic ovaries PTSD (post-traumatic stress disorder) Posttraumatic stress disorder documented in this encounter Care Teams Car Rental Sales Assistant Relationship Specialty Start Date End Date Álvaro Martínez PA-C [address] [facility] [place] [address] PCP - General Physician Terminal Operator 12/31/23 documented as of this encounter
--- OUTSIDE RECORDS SUMMARY | 2024-07-12 04:49 | External Medical Summary | Summary of Care ---
Author Name Unknown Organization [facility] Address [address] [facility] [place] [address] Phone [phone] Care Team Providers Care Airplane Navigator Name Role Phone Álvaro Martínez PA-C Primary Care Provider Reason for Visit * Reason Comments Return Visit Colposcopy Encounter Details Date Type Department Care Team (Late st Contact Info) Description 04/11/2024 9:00 AM EST [facility] [address] [place] [address] Octavia Gamboa CRNP [address] [place] [address] Supervision of normal first , antepartum*; Moderate episode of recurrent major depressive disorder (HCC); Rh negative status during in second trimester; Urinary tract infection in mother during first trimester of ; ASCUS with positive high risk HPV cervical Allergies Active Allergy Reactions Criticality Noted Date [...] Take by mouth. Unsure of dosage. Active Fluticasone Propionate 50 MCG/ACT Nasal Suspension (Flonase Allergy Relief) Administer 1 [place] into nostril in the morning. 04/11/19 25 Discontin ued(Medic ation List Clean Up) Loratadine 10 MG Oral Capsule (Claritin) Take 1 Capsule by mouth in the morning. 04/11/19 25 Discontin ued(Medic ation List Clean Up) Amoxicillin 500 MG Oral TabletIndicati ons:Urinary tract infection in mother during first trimester of Take 1 Tablet by mouth in the morning and 1 Tablet at noon and 1 Tablet before bedtime. Do all this for 5 days. Until gone.. 15 Tablet 04/11/19 25 Discontin ued(Medic ation List Clean Up) [...] have money to get more. Patient declined Turrell Depression Scale Answer Date Recorded Turrell Depression Scale Total 8 02/28/2024 The thought [...] Sign Reading Time Taken Comments Blood Pressure 106/68 04/11/2024 9:04 AM EST Pulse - - Temperature - - Respiratory Rate - - Oxygen Saturation - - Inhaled Oxygen Concentration - - Weight 66.9 kg (147 lb 6.4 oz) 04/11/2024 9:04 A M EST Height - - Body Mass Index 27.85 12/31/2023 11:18 AM EDT documented in this encounter Patient Instructions * Patient Instructions* Octavia Gamboa CRNP - 04/11/2024 9:07 AM EST documented in this encounter Progress Notes * Octavia Gamboa CRNP - 04/11/2024 9:07 AM EST 16w0d Starting to feel flutters. No significant pain or bleeding. Declines genetics. Completing early GTT today. Struggling w/depression - would like to avoid restarting Wellbutrin if possible. Discussed safety of its use in if needed. Will provide with list of counselors. Anatomy scan with next visit, return in 4 weeks. DURGA Ha Colposcopy Procedure Customer Care Team Coach Documentation Provider requested microchip specialist. Name of microchip specialist: Mariya Gomez presents for colposcopy for evaluation of recent pap showing: ASCUS +HPV. Previous pap smears: normal BP 106/68 | Wt 66.9 kg (147 lb 6.4 oz) | LMP 12/21/2023 Comment: irregular | BMI 27.85 kg/m² | BSA1.7 m² Reviewed in detail procedure, risks, benefits and indications. A ''time out'' was initiated by DURGA Ha.The patient was identified by name and dateof . The correct procedure, and correct site identified. Correct positioning (as applicable). There is availability of necessary equipment. Pt states she is allergic to latex. PE: bimanual exam: Not performed. external genitalia: No lesions. vagina: No lesions. cervix: No lesions. Transformation Zone: Seen in entirety Satisfactory Colposcopy: yes Additional Biopsies: N/A ECC: no Impression: ASCUS +HPV Normal colposcopy Repeat pap in 1 yr DURGA Ha documented in this encounter Nursing Notes * Mariya Aguilar LPN - 04/11/2024 9:03 AM EST 16w0d Denies vaginal bleeding/rom + movement No new concerns Colpo today documented in this encounter Plan of Treatment Upcoming Encounters Date Type Department Care Team (Late st Contact Info) Description 05/09/2024 9:45 AM EST Imaging Radiology [facility] 2nd [facility] [address] [place] [address] 05/09/2024 11:30 AM EST Office Visit Gynecology/Obstetrics [facility] [address] [place] [address] Octavia Gamboa CRNP [address] [place] [address] Pending Results Name Type Priority Associated Diagnoses Date /Time CULTURE, URINE, QUANTITATIVE Lab Routine Urinary tract infection in mother during first trimester of 04/11/2024 9:16 AM EST Scheduled Orders Name Type Priority Associated Diagnoses Orde r Schedule US PREG SINGLE/1ST GEST, 14 WEEKS OR LATER Medical Imaging Routine Supervision of normal first , antepartum Expected: 05/09/2024 (Approximate), Expires: 05/09/2025 Health Maintenance Due Date Last Done Comments [...] infection in mother during first trimester of ASCUS with positive high risk HPV cervical documented in this encounter Additional Health Concerns Active Problems Noted Date Diagnosed Date OB Reminders 04/07/2024 documented as of this encounter Care Teams Airplane Navigator Relationship Specialty Start Date End Date Álvaro Martínez PA-C [address] [facility] [place] [address] PCP - General Physician Sign Poster 12/31/23 documented as of this encounter"
--- OUTSIDE RECORDS SUMMARY | 2024-07-12 04:49 | External Medical Summary ---
Author Name Unknown Address Unknown Organization [id number]:[facility] [place] [facility] [address] [place] [address] Laboratory Report Ordering Provider Test Date Status NIURKA JONES 02/28/2024 09:45:22 Final Observation Date Value Abnormality Reference (Units ) Status Chlamydia trachomatis rRNA [Presence] in Specimen by LIZA with probe detection 02/28/2024 09:45:22 Negative Negative Final No Chlamydia trachomatis det ected by engine wiper-mediated nucleic acid amplification. Neisseria gonorrhoeae rRNA [ Presence] in Specimen by LIZA with probe detection 02/28/2024 09:45:22 Negative Negative Final No Neisseria gonorrhoeae det ected by engine wiper-mediated nucleic acid amplification. Performing Location [facility]ATORY [facility] [place] - [address] [place] [address]
--- OUTSIDE RECORDS SUMMARY | 2024-07-12 04:49 | External Medical Summary ---
Author Name Unknown Address Unknown Organization [id number][facility] [address] [place] [address] Laboratory Report Ordering Provider Test Date Status NIURKA JONES 02/28/2024 09:43:00 Final Observation Date Value Abnormality Reference (Units ) Status Color of Urine by Auto 02/28/2024 09:43:00 Yellow Light Yellow, Yellow Final Clarity, Urine 02/28/2024 09:43:00 Clear Clear Final Glucose [Mass/volume] in Urine by Automated test strip 02/28/2024 09:43:00 Negative Negative (mg/dL) Final Bilirubin.total [Presence] in Urine by Automated test strip 02/28/2024 09:43:00 Negative Negative Final Ketones [Mass/volume] in Urine by Automated test strip 02/28/2024 09:43:00 Negative Negative (mg/dL) Final Specific gravity, Urine 02/28/2024 09:43:00 1.025 1.003-1.030 Final Hemoglobin [Presence] in Urine by Automated test strip 02/28/2024 09:43:00 Negative Negative Final pH, Urine 02/28/2024 09:43:00 7.0 5.0, 5.5, 6.0, 6.5, 7.0, 7.5 (units) Final Protein [Mass/volume] in Urine by Automated test strip 02/28/2024 09:43:00 Negative Negative (mg/dL) Final Urobilinogen, Urine 02/28/2024 09:43:00 0.2 0.2, 1.0 (mg/dL) Final Nitrite [Presence] in Urine by Automated test strip 02/28/2024 09:43:00 Positive Abnormal Negative Final Leukocyte esterase [Presence] in Urine by Automated test strip 02/28/2024 09:43:00 Moderate Abnormal Negative Final Performing Location [facility] - [address] [place] [address]
--- OUTSIDE RECORDS SUMMARY | 2024-07-12 04:49 | External Medical Summary ---
Author Name Unknown Address Unknown Organization [id number]:LAB[facility]ATORY [facility] [place] - [address] [place] [address] Laboratory Report Ordering Provider Test Date Status NIURKA JONSE 02/28/2024 09:55:00 Final Observation Date Value Abnormality Reference (Units ) Status Treponema pallidum Ab [Presence] in Serum by Immunoassay 02/28/2024 09:55:00 Nonreactive Nonreactive Final No serologic evidence of syp hilis. No additional testing clinicially indicated at this time. Consider repeat testing in 2-4 weeks if acute or primary syphilis is suspected. Performing Location LABORATORY [facility] [place] - [address] [place] [address]
--- OUTSIDE RECORDS SUMMARY | 2024-07-12 04:49 | External Medical Summary ---
Author Name Unknown Address Unknown Organization [id number]:[facility] - [address] [place] [address] Laboratory Report Ordering Provider Test Date Status NIURKA JONES 04/11/2024 09:21:51 Final Observation Date Value Abnormality Reference (Units ) Status Glucose [Moles/volume] in Serum or Plasma --1 hour post 50 g glucose PO 04/11/2024 09:21:51 112 70-129 (mg/dL) Final Performing Location [facility] - [address] [place] [address]
--- OUTSIDE RECORDS SUMMARY | 2024-07-12 04:49 | External Medical Summary | Summary of Care ---
Author Name Unknown Organization [facility] Address [address] [facility] [place] [address] Phone [phone] Care Team Providers Care Numerical Control Drill Press Operator Name Role Phone Álvaro Martínez PA-C Primary Care Provider Reason for Visit * Reason Comments New Visit Nurse Phone Intake Encounter Details Date Type Department Care Team (Late st Contact Info) Description 02/13/2024 1:45 PM EST Nurse Only Gynecology/Obstetrics [facility] [address] [facility] [place] [address] , Nurse Mail Deliverer [facility] [address] [facility] [place] [address] New Visit (Nurse Phone Intake) Allergies Active Allergy Reactions Criticality Noted Date Comments Covid-19 (Mrna) Vaccine 12/31/2023 Any covid vaccine Influenza Virus Vaccine 12/31/2023 Any flu vaccine Latex 12/31/2023 rash documented as of this encounter (statuses as of 02/13/2024) Medications Fluticasone Propionate 50 MCG/ACT Nasal Suspension (Flonase Allergy Relief) Administer 1 [place] into nostril in the morning. Active Loratadine [...] as of this encounter (statuses as of 02/13/2024) Active Problems Problem Noted Date Diagnosed Date Moderate episode of recurrent major depressive d isorder 12/31/2023 PCOS (polycystic ovarian syndrome) 12/31/2023 PTSD (post-traumatic stress disorder) 12/31/2023 Comments Yes documented as of this encounter (statuses as of 02/13/2024) Immunizations Name Administration Dates Next Due DTaP [...] No 12/31/2023 Does the household have a select specialty hospitalr source of income? (Household - for ages [...] EDT Travel History Travel Start Travel End [place] 01/30/2024 02/03/2024 documented as of this encounter Nursing Notes * Rey Rhoades, RN - 02/13/2024 1:53 PM EST Chief Complaint Patient presents with New Visit Nurse Phone Intake NOB information packet given. We reviewed Baby on the Way booklet, discussing diet-including fish advisory and listeria-, exercise, travel, sexual intercourse during , warning signs, and when to call the provider. Introduced names of providers and informed patient she will be seen by all providers and that any one one them could be elementary education tutor at time of delivery, phone numbers given to reach us during and after office hours. Medication handout given, advised only Tylenol, no ASA or Ibuprofen unless otherwise ordered by OB. Discussed importance of taking PN vitamins, avoiding alcohol anddrugs during , and if using tobacco, advised to stop. Fresh Start Family booklet as well as [place] quit line number given if using tobacco. Discussed development and highly sensitive period of organogenisis. Prepared childbirth class, sibling class and feeding option class information with phone numbers to schedule at [facility] given. Advised to always use their seat belt. Cystic Fibrosis, AFP/Quad Screen,cytomegalovirus, and toxoplasmosis screening handouts given to patient. Information regarding these tests was discussed and patient verbalizes understanding. documented in this encounter Plan of Treatment Upcoming Encounters Date Type Department Care Team (Late st Contact Info) Description 02/28/2024 8:15 AM EST Imaging Radiology [facility] 2nd [facility] [address] [place] [address] 02/28/2024 9:15 AM EST Office Visit Gynecology/Obstetrics [facility] [address] [place] [address] Henny Santana CRNP [address] [facility] [place] [address] Health Maintenance Due Date Last Done Comments Pneumococcal Vaccine: Pediatrics (0 to 5 Years) and At-Risk Patients (6 to 64 Years) (1 of 2 - PCV) 12/06/2001 HIV Screening 12/06/2010 Hepatitis C Screening 12/06/2013 [...] as of this encounter Visit Diagnoses Diagnosis Encounter for supervision of normal - Primary Supervision of other normal documented in this encounter Care Teams Numerical Control Drill Press Operator Relationship Specialty Start Date End Date Álvaro Martínez PA-C [address] [facility] [place] [address] PCP - General Physician Sawmill M[place] Operator 12/31/23 documented as of this encounter
--- OUTSIDE RECORDS SUMMARY | 2024-07-12 04:49 | External Medical Summary | Summary of Care ---
Author Name Unknown Organization [facility] Address [address] [facility] [place] [address] Phone [phone] Care Team Providers Care Rate Manager Name Role Phone Álvaro Martínez PA-C Primary Care Provider Reason for Visit * Reason Onset Date Comments Test Results 03/03/2024 Encounter Details Date Type Department Care Team (Late st Contact Info) Description 03/03/2024 Telephone Gynecology/Obstetrics [facility] [address] [place] [address] Octavia Gamboa CRNP [address] [place] [address] Test Results Allergies Active Allergy Reactions Criticality Noted Date Comments Covid-19 (Mrna) Vaccine 12/31/2023 Any covid vaccine Influenza Virus Vaccine 12/31/2023 Any flu vaccine Latex 12/31/2023 rash documented as of this encounter (statuses as of 03/03/2024) Medications Fluticasone Propionate 50 MCG/ACT Nasal Suspension (Flonase Allergy Relief) Administer 1 [place] into nostril in the morning. Active Loratadine [...] Take by mouth. Unsure of dosage. Active Amoxicillin 500 MG Oral TabletIndicatio ns:Urinary tract infection in mother during first trimester of Take 1 Tablet by mouth in the morning and 1 Tablet at noon and 1 Tablet before bedtime. Do all this for 5 days. Until gone.. 15 Tablet 03/08/19 25 Active documented as of this encounter (statuses as of 03/03/2024) Active Problems Problem Noted Date Diagnosed Date [...] as of this encounter (statuses as of 03/03/2024) Immunizations Name Administration Dates Next Due DTaP [...] have money to get more. Patient declined [place] Depression Scale Answer Date Recorded [place] Depression Scale Total 8 02/28/2024 The thought [...] EDT Travel History Travel Start Travel End [place] 01/30/2024 02/03/2024 documented as of this encounter Miscellaneous Notes * Telephone Encounter - Khadijah Au LPN - 03/03/2024 8:21 AM EST Patient aware. * Telephone Encounter - Octavia Gamboa CRNP - 03/03/2024 8:01 AM EST +UTI, please let me know preferred pharmacy for antibiotics. Will repeat urine culture at next visit. Other labs normal. Blood type B neg, she will need RhoGAM at 28 wks. DURGA Ha documented in this encounter Plan of Treatment Upcoming Encounters Date Type Department Care Team (Late st Contact Info) Description 03/28/2024 8:20 AM EST [facility] [address] [place] [phone] Justin Coronado [address] [place] [address] 03/28/2024 8:30 AM EST Office Visit Gynecology/Obstetrics [place] [address] Henny Santana CRNP [address] [place] [address] Health Maintenance Due Date Last Done Comments Pneumococcal Vaccine: Pediatrics (0 to 5 Years) and At-Risk Patients (6 to 18 Years and 19+ Years) (1 of 2 - PCV) 12/06/2014 Pap Smear 12/06/2016 COVID-19 Vaccine (1 - 2023- season) 2023 Influenza Vaccine (FLU shot) (#1) [...] as of this encounter Visit Diagnoses Diagnosis Urinary tract infection in mother during first trimester of - Primary documented in this encounter Care Teams Rate Manager Relationship Specialty Start Date End Date Álvaro Martínez PA-C [address] [facility] [place] [address] PCP - General Physician Wind Turbine Design Engineer 12/31/23 documented as of this encounter
--- OUTSIDE RECORDS SUMMARY | 2024-07-12 04:49 | External Medical Summary ---
Author Name Unknown Address Unknown Organization [id number]:LABORATORY [address] [address] Laboratory Report Ordering Provider Test Date Status NIURKA JONES 02/28/2024 09:45:00 Final Observation Date Value Abnormality Reference (Units ) Status Human papilloma virus E6+E7 mRNA [Presence] in Cervix by LIZA with probe detection 02/28/2024 09:45:00 Positive Abnormal Not Applicable Final One or more high/intermediat e-risk Human Papillomavirus (HPV E6/E7 messenger RNA) detected by nucleic acid amplification.

This assay looks for high/intermediate risk Human Papillomavirus (HPV E6/E7 messenger RNA) by nucleic acid amplification. This assay includes the qualitative detection of HPV types 16,18,31,33,35,39,45,51,52,56,58,59,66 and 68 from cervical specimens.
This assay has been FDA cleared for Thin prep collection vials.
This assay has not been approved for use as a primary screening test for HPV and should be tested in conjunction with a PAP screen.
If collected utilizing a Surepath vial, the collection and specimen preparation of this test was developed, and its performance characteristics determined by [employer]. It has not been cleared or approved by the U.S. Food and Drug Administration (FDA). The FDA has determined that such clearance or approval is not necessary.
This assay has been performed at [facility], [address] [place] [address], [place]. [address]. Performing Location LABORATORY [address] [place] [facility] [address]
--- OUTSIDE RECORDS SUMMARY | 2024-07-12 04:49 | External Medical Summary ---
Author Name Unknown Address Unknown Organization [id number]:[facility]ORY [facility] [place] [address] [facility] [place] [address] Laboratory Report Ordering Provider Test Date Status NIURKA JONES 02/28/2024 09:55:00 Final Observation Date Value Abnormality Reference (Units ) Status Hep B surface Ag 02/28/2024 09:55:00 Negative Neg ative Final Performing Location LABORATORY [facility] - [address] [facility] [address]
--- OUTSIDE RECORDS SUMMARY | 2024-07-12 04:49 | External Medical Summary ---
Author Name Unknown Address Unknown Organization [id number]:LABORATORY [facility] - [address] [facility] [place] [address] Laboratory Report Ordering Provider Test Date Status NIURKA JONES 02/28/2024 09:45:22 Final Observation Date Value Abnormality Reference (Units ) Status Bacteria identified in Specimen by Culture 02/28/2024 09:45:22 [id number]^ESCHE RICHIA COLI Abnormal Final >100,000 colonies/mL Escheri candi coli Performing Location [facility] [place] [address] [facility] [address] Ordering Provider Test Date Status NIURKA JONES 02/28/2024 09:45:22 Final Observation Date Value Abnormality Reference (Units ) Status Ampicillin 02/28/2024 09:45:22 8 Susceptible Final Cefazolin 02/28/2024 09:45:22 <=4 Susceptible Final Cefepime susceptibility 02/28/2024 09:45:22 <=1 Susceptible Final Ceftriaxone suceptibility 02/28/2024 09:45:22 <=1 Susceptible Final Ciprofloxacin 02/28/2024 09:45:22 <=0.25 Susceptible Final Due to serious side effects, the FDA has advised against using Ciprofloxacin to treat uncomplicated UTIs and respiratory tract infections unless there are no alternative treatment options. Gentamicin susceptibility 02/28/2024 09:45:22 <=1 Susc eptible Final Nitrofurantoin susceptibility 02/28/2024 09:45:22 <=16 Susceptible Final Piperacillin + Tazobactamsusceptibility 02/28/2024 09:45:22 <=4 Susceptible Final TMP-SMZ susceptibility 02/28/2024 09:45:22 <=20 Suscept ible Final Test: Culture, Urine, Quanti tative
Specimen Source: Urine, Clean Catch
Specimen Type: Urine
Specimen Date: 02/28/202445
Result Date: 03/01/2024 0732
Result Status: Final result
Abnormal: Yes
Resulting Lab: [facility]ORY [facility] [place]
[address]
[facility] [address]

CULTURE

>100,000 colonies/mL Escherichia coli (Abnormal)

SUSCEPTIBILITY

Escherichia coli
METHOD MICROBROTH
DILUTIONS

AMPICILLIN 8 Susceptible
CEFAZOLIN <=4 Susceptible
CEFEPIME <=1 Susceptible
CEFTRIAXONE <=1 Susceptible
CIPROFLOXACIN <=0.25 Susceptible
[1]
GENTAMICIN <=1 Susceptible
NITROFURANTOIN <=16 Susceptible
PIPERACILLIN TAZOBACTAM <=4 Susceptible
TRIMETH/SULFAMETHOXAZOLE <=20 Susceptible

[1] Due to serious side effects, the FDA has advised against using
Ciprofloxacin to treat uncomplicated UTIs and respiratory tract infections
unless there are no alternative treatment options.

null Performing Location LABORATORY [facility] [place] - [address] [facility] [address]
--- OUTSIDE RECORDS SUMMARY | 2024-07-12 04:49 | External Medical Summary ---
Author Name Unknown Address Unknown Organization [id number]:[facility] [place] [address] [facility] [address] Laboratory Report Ordering Provider Test Date Status GREGG DEMPSEY 04/11/2024 09:16:27 Final <10,000 colonies/ml mixed no rmal germán Observation Date Value Abnormality Reference (Units ) Status Bacteria identified in Specimen by Culture 04/11/2024 09:16:27 [id number]^ESCHE RICHIA COLI Abnormal Final >100,000 colonies/mL Escheri candi coli Performing Location [facility] [place] [facility] [address] [facility] [address] Ordering Provider Test Date Status GREGG DEMPSEY 04/11/2024 09:16:27 Final Observation Date Value Abnormality Reference (Units ) Status Ampicillin 04/11/2024 09:16:27 8 Susceptible Final Cefazolin 04/11/2024 09:16:27 <=4 Susceptible Final Cefepime susceptibility 04/11/2024 09:16:27 <=1 Susceptible Final Ceftriaxone suceptibility 04/11/2024 09:16:27 <=1 Susceptible Final Ciprofloxacin 04/11/2024 09:16:27 <=0.25 Susceptible Final Due to serious side effects, the FDA has advised against using Ciprofloxacin to treat uncomplicated UTIs and respiratory tract infections unless there are no alternative treatment options. Gentamicin susceptibility 04/11/2024 09:16:27 <=1 Susc eptible Final Nitrofurantoin susceptibility 04/11/2024 09:16:27 <=16 Susceptible Final Piperacillin + Tazobactamsusceptibility 04/11/2024 09:16:27 <=4 Susceptible Final TMP-SMZ susceptibility 04/11/2024 09:16:27 <=20 Suscept ible Final Test: Culture, Urine, Quanti tative
Specimen Source: Urine, Clean Catch
Specimen Type: Urine
Specimen Date: 04/11/202416
Result Date: 04/13/202435
Result Status: Final result
Abnormal: Yes
Resulting Lab: [facility]
[address]
[place] [address]

CULTURE

>100,000 colonies/mL Escherichia coli (Abnormal)

<10,000 colonies/ml mixed normal germán

SUSCEPTIBILITY

Escherichia coli
METHOD MICROBROTH
DILUTIONS

AMPICILLIN [...] alternative treatment options.

null Performing Location LAB[facility] [place] [address] [facility] [address]
--- OUTSIDE RECORDS SUMMARY | 2024-07-12 04:49 | External Medical Summary ---
Author Name Unknown Address Unknown Organization K01:[facility] [place] [facility] [place] [address] Laboratory Report Ordering Provider Test Date Status NIURKA JONES 02/28/2024 09:55:00 Final Observation Date Value Abnormality Reference (Units ) Status SYNC LEUKOCYTES IN BLOOD BY AUTOMATED COUNT 02/28/2024 09:55:00 9.23 4.00-10.80 (K/uL) Final Segs 02/28/2024 09:55:00 72.1 40.0-75.0 (%) Final Lymphs % 02/28/2024 09:55:00 22.1 18.0-42.0 (%) Final Monos 02/28/2024 09:55:00 4.6 1.0-11.0 (%) Final Eosinophils 02/28/2024 09:55:00 0.5 0.0-6.0 (%) Final Basos 02/28/2024 09:55:00 0.4 0.0-2.0 (%) Final Immature Granulocyte, Percent 02/28/2024 09:55:00 0.3 0.0-2.0 (%) Final Absolute Segs 02/28/2024 09:55:00 6.65 1.80-7.70 (K/uL) Final Lymphs, absolute 02/28/2024 09:55:00 2.04 1.00-4.80 (K/ul) Final Monos, Abs 02/28/2024 09:55:00 0.42 0.00-1.10 (K/uL) Final Eos, Abs 02/28/2024 09:55:00 0.05 0.00-0.70 (K/uL) Final Basos, Abs 02/28/2024 09:55:00 0.04 0.00-0.20 (K/uL) Final Immature Granulocytes, Number 02/28/2024 09:55:00 0.03 0.00-0.20 (K/uL) Final Performing Location [facility] [place] [address] [facility] [address]
--- OUTSIDE RECORDS SUMMARY | 2024-07-12 04:49 | External Medical Summary | Summary of Care ---
Author Name Unknown Organization [facility] Address [address] [place] [facility] [place] [address] Phone [phone] Care Team Providers Care Pediatric Nephrologist Name Role Phone Álvaro Martínez PA-C Primary Care Provider Reason for Visit * Reason Comments Outpatient Testing Encounter Details Date Type Department Care Team (Late st Contact Info) Description 02/28/2024 9:50 AM [facility] Laboratory Laboratory, [facility] [address] [place] [phone] [facility] [address] [facility] [address] Encounter for supervision of normal first in first trimester Allergies Active Allergy Reactions Criticality Noted Date Comments Covid-19 (Mrna) Vaccine 12/31/2023 Any covid vaccine Influenza Virus Vaccine 12/31/2023 Any flu vaccine Latex 12/31/2023 rash documented as of this encounter (statuses as of 02/28/2024) Medications Fluticasone Propionate 50 MCG/ACT Nasal Suspension (Flonase Allergy Relief) Administer 1 [place] into nostril in the morning. Active Loratadine [...] as of this encounter (statuses as of 02/28/2024) Active Problems Problem Noted Date Diagnosed Date Supervision of normal first , antepartu m [...] as of this encounter (statuses as of 02/28/2024) Immunizations Name Administration Dates Next Due DTaP [...] have money to get more. Patient declined [place] Depression Scale Answer Date Recorded [place] Depression Scale Total 8 02/28/2024 The thought [...] EDT Travel History Travel Start Travel End [place] 01/30/2024 02/03/2024 documented as of this encounter Plan of Treatment Upcoming Encounters Date Type Department Care Team (Late st Contact Info) Description 03/28/2024 8:20 AM EST Laboratory Laboratory, [facility] [place] [phone] [facility] [address] [facility] [place] [address] 03/28/2024 8:30 AM EST Office Visit Gynecology/Obstetrics [facility] [address] [facility] [place] [address] Henny Santana CRNP [address] [place] [place] [address] Pending Results Name Type Priority Associated Diagnoses Date /Time TYPE AND SCREEN Lab Routine Encounter for supervision of normal first in first trimester 02/28/2024 9:55 AM EST RUBELLA IGG ANTIBODY Lab Routine Encounter for supervision of normal first in first trimester 02/28/2024 9:55 AM EST HEPATITIS B SURFACE ANTIGEN Lab Routine Encounter for supervision of normal first in first trimester 02/28/2024 9:55 AM EST HIV ANTIGEN & ANTIBODY SCREEN W/ CONFIRMATION Lab Routine Encounter for supervision of normal first in first trimester 02/28/2024 9:55 AM EST CBC WITH WBC DIFFERENTIAL AND ANEMIA REFLEX WORKUP Lab Routine Encounter for supervision of normal first in first trimester 02/28/2024 9:55 AM EST HEPATITIS C ANTIBODY SCREEN WITH PROGRESSION TO HEPATITIS C RNA QUANTITATIVE Lab Routine Encounter for supervision of normal first in first trimester 02/28/2024 9:55 AM EST SYPHILIS ANTIBODY SCREEN WITH REFLEX TO RPR Lab Routine Encounter for supervision of normal first in first trimester 02/28/2024 9:55 AM EST ANEMIA CBC Lab Routine Encounter for supervision of normal first in first trimester 02/28/2024 9:55 AM EST DIFFERENTIAL, AUTOMATED Lab Routine Encounter for supervision of normal first in first trimester 02/28/2024 9:55 AM EST ANEMIA REFLEX CHEMISTRY HOLD Lab Routine Encounter for supervision of normal first in first trimester 02/28/2024 9:55 AM EST HEPATITIS C ANTIBODY Lab Routine Encounter for supervision of normal first in first trimester 02/28/2024 9:55 AM EST HEPATITIS C RNA ADD ON Lab Routine Encounter for supervision of normal first in first trimester 02/28/2024 9:55 AM EST SYPHILIS ANTIBODY SCREEN Lab Routine Encounter for supervision of normal first in first trimester 02/28/2024 9:55 AM EST ABO/RH Lab Routine Encounter for supervision of normal first in first trimester 02/28/2024 10:04 AM EST Health Maintenance Due Date Last Done Comments HIV Screening 12/06/2010 Hepatitis C Screening 12/06/2013 Pneumococcal Vaccine: Pediatrics (0 to 5 Years) and At-Risk Patients (6 to 18 Years and 19+ Years) (1 of 2 - PCV) 12/06/2014 Pap Smear 12/06/2016 COVID-19 Vaccine ( - season) 2023 Influenza [...] in first trimester Supervision of normal first documented in this encounter Care Teams Pediatric Nephrologist Relationship Specialty Start Date End Date Álvaro Martínez PA-C [address] [facility] [place] [address] PCP - General Physician Electrical Drafter 12/31/23 documented as of this encounter
--- OUTSIDE RECORDS SUMMARY | 2024-07-12 04:49 | External Medical Summary | Summary of Care ---
Author Name Unknown Organization [facility] Address [address] [facility] [place] [address] Phone [phone] Care Team Providers Care Certified Solid Waste Facility Operator Name Role Phone Álvaro Martínez PA-C Primary Care Provider Reason for Visit * Reason Onset Date Comments Test Results 04/14/2024 Encounter Details Date Type Department Care Team (Late st Contact Info) Description 04/14/2024 Telephone Gynecology/Obstetrics [facility] [address] [place] [address] Octavia Gamboa CRNP [address] [place] [address] Test Results Allergies Active Allergy Reactions Criticality Noted Date Comments Covid-19 (Mrna) Vaccine 12/31/2023 Any covid vaccine Influenza Virus Vaccine 12/31/2023 Any flu vaccine Latex 12/31/2023 rash documented as of this encounter (statuses as of 04/14/2024) Medications buPROPion HCl ER (XL) 150 MG [...] this for 7 days. 28 Capsule 5 04/21/19 25 Active documented as of this encounter (statuses as of 04/14/2024) Active Problems Problem Noted Date Diagnosed Date [...] as of this encounter (statuses as of 04/14/2024) Immunizations Name Administration Dates Next Due DTaP [...] have money to get more. Patient declined [place] Depression Scale Answer Date Recorded [place] Depression Scale Total 8 02/28/2024 The thought [...] Telephone Encounter - June Cope RN - 04/14/2024 10:16 AM EST Pt is aware and agreeable. Pharmacy updated. * Telephone Encounter - Octavia Gamboa CRNP - 04/14/2024 7:41 AM EST +UTI, please let me know preferred pharmacy for antibiotics. Ensure adequate hydration. Will repeaturine culture at next visit. DURGA Ha documented in this encounter Plan of Treatment Upcoming Encounters Date Type Department Care Team (Late st Contact Info) Description 05/09/2024 9:45 AM EST Imaging Radiology [facility] 2nd Floor, [place] [address] [place] [address] 05/09/2024 11:30 AM EST Office Visit Gynecology/Obstetrics [facility] [address] [place] [address] Octavia Gamboa CRNP [address] [place] [address] Health Maintenance Due Date Last Done Comments [...] documented as of this encounter Care Teams Certified Solid Waste Facility Operator Relationship Specialty Start Date End Date Álvaro Martínez PA-C [address] [facility] [place] [phone] PCP - General Physician Maintenance Engineer 12/31/23 documented as of this encounter
--- OUTSIDE RECORDS SUMMARY | 2024-07-12 04:49 | External Medical Summary ---
Author Name Unknown Address Unknown Organization K01:LABORATORY [facility] - [address] [place] [address] Laboratory Report Ordering Provider Test Date Status NIURKA JONES 02/28/2024 09:55:00 Final Observation Date Value Abnormality Reference (Units ) Status ABO 02/28/2024 09:55:00 B Final RH 02/28/2024 09:55:00 Negative Final RED BLOOD CELL ANTIBODY SCREEN 02/28/2024 09:55:00 Negative Final SPECIMEN EXPIRATION DATE 02/28/2024 09:55:00 03/02/2024 23:59 Final Performing Location LABORATORY [facility] - [address] [place] [address]
--- OUTSIDE RECORDS SUMMARY | 2024-07-12 04:49 | External Medical Summary ---
Author Name Unknown Address Unknown Organization K01:[facility]ORY [facility] - [address] [place] [address] Laboratory Report Ordering Provider Test Date Status NIURKA JONES 02/28/2024 09:55:00 Final Observation Date Value Abnormality Reference (Units ) Status WBC, Total 02/28/2024 09:55:00 9.23 4.00-10.8 0 (K/uL) Final RBC 02/28/2024 09:55:00 4.69 3.85-5.15 (M/uL) Final Hemoglobin 02/28/2024 09:55:00 13.7 12.0-15.3 (g/dL) Final Anemia reflex testing trigge rs on a HGB < 12.0 for Females and HGB < 13.0 for Males in accordance with the WHO Anemia Guidelines
Anemia reflex testing triggers on a HGB < 12.0 for Females and HGB < 13.0 for Males in accordance with the WHO Anemia Guidelines HCT 02/28/2024 09:55:00 42.3 36.0-45.2 (%) Final MCV 02/28/2024 09:55:00 90.2 81.5-97.5 (fL) Final MCH 02/28/2024 09:55:00 29.2 27.0-34.0 (pg) Final MCHC 02/28/2024 09:55:00 32.4 32.0-36.0 (g/dL) Final RDW 02/28/2024 09:55:00 13.8 11.5-15.5 (%) Final Platelets 02/28/2024 09:55:00 208 140-400 (K /uL) Final MPV 02/28/2024 09:55:00 12.0 6.6-11.1 ( fL) Final Nucleated erythrocytes/100 leukocytes [Ratio] in Blood by Automated count 02/28/2024 09:55:00 0 <=0 (/100 WBCs) Fi nal Performing Location [facility] - [address] [place] [address]
--- OUTSIDE RECORDS SUMMARY | 2024-07-12 04:49 | External Medical Summary ---
Author Name Unknown Address Unknown Organization K01:LAB[facility]ATORY [facility] [place] - [address] [facility] [address] Laboratory Report Ordering Provider Test Date Status NIURKA JONES 02/28/2024 09:55:00 Final Observation Date Value Abnormality Reference (Units ) Status HIV 1+2 Ab+HIV1 p24 Ag [Presence] in Serum or Plasma by Immunoassay 02/28/2024 09:55:00 Negative Negative Final Negative HIV-1/2 antigen and antibody screening tset results usually indicate the absence of HIV-1 and HIV-2 infection. However, such negative results do not rule-out acute HIV infection. If acute HIV-1 infection is highly suspected, it is recommended that a specimen be submitted for detection of HIV-1 RNA. Performing Location LABORATORY [facility] [place] - [address] [place] [address]
--- OUTSIDE RECORDS SUMMARY | 2024-07-12 04:49 | External Medical Summary ---
Author Name Unknown Address Unknown Organization K01:[facility] - [address] [place] [address] Laboratory Report Ordering Provider Test Date Status ROBERTNIURKA 02/28/2024 09:55:00 Final Observation Date Value Abnormality Reference (Units ) Status Rubella virus IgG Ab [Presence] in Serum 02/28/2024 09:55:00 Positive Abnormal Negative Final A positive result is consist ent with having had rubella virus or vaccination. Performing Location LABORATORY [facility] [place] - [address] [place] [address]
--- OUTSIDE RECORDS SUMMARY | 2024-07-12 04:49 | External Medical Summary | Summary of Care ---
Author Name Unknown Organization [facility] Address [address] [facility] [place] [address] Phone [phone] Care Team Providers Care Menagerie Superintendent Name Role Phone Álvaro Martínez PA-C Primary Care Provider Reason for Visit * Reason Comments New Visit Encounter Details Date Type Department Care Team (Late st Contact Info) Description 02/28/2024 9:15 AM EST Office Visit Gynecology/Obstetric s Robina Coronado [address] [place] [address] Henny Santana CRNP [address] [place] [address] Encounter for supervision of normal first in first trimester*; PCOS (polycystic ovarian syndrome) Allergies Active Allergy Reactions Criticality Noted Date Comments Covid-19 (Mrna) Vaccine 12/31/2023 Any covid vaccine Influenza Virus Vaccine 12/31/2023 Any flu vaccine Latex 12/31/2023 rash documented as of this encounter (statuses as of 02/28/2024) Medications Fluticasone Propionate 50 MCG/ACT Nasal Suspension (Flonase Allergy Relief) Administer 1 [place] into nostril in the morning. Active Loratadine [...] Tobacco: Some Days Cigarettes Smokeless Tobacco: Never Tobacco Cessation:Ready to Q uit: Not Asked; Counseling Given: Not Answered Alcohol Use Standard Drinks/Week Comments Not Currently [...] have money to get more. Patient declined [place] Depression Scale Answer Date Recorded [place] Depression Scale Total 8 02/28/2024 The thought [...] Sign Reading Time Taken Comments Blood Pressure 100/62 02/28/2024 8:54 AM EST Pulse - - Temperature - - Respiratory Rate - - Oxygen Saturation - - Inhaled Oxygen Concentration - - Weight 64 kg (141 lb) 02/28/2024 8:54 AM EST Height - - Body Mass Index 26.64 12/31/2023 11:18 AM EDT documented in this encounter Progress Notes * Henny Santana CRNP - 02/28/2024 9:48 AM EST HPI: Renato Gomez is a 28 year old year old female here for NOB visit. 9w6d . EDC 09/26/24. Early dating u/s confirming single viable IUP. Reviewed PMH, PSH, social hx, and family hx with pt and FOB. History of depression and PTSD. Weaned herself off meds with KOP. Denies need for meds currently. States she was dx with PCOS in the ED at age 11. Recalls having an ultrasound. She reports that shehas had irregular periods throughout her life. Can't recall if she had labs, but has had labile blood sugars. Will complete early glucola. Discussed genetic screening tests with pt. She is undecided. symptoms: +nausea, +vomiting, +breast tenderness. She is taking PNV. Past Medical History: Diagnosis Date Depression Migraine PCOS (polycystic ovarian syndrome) PTSD (post-traumatic stress disorder) Past Surgical History: Procedure Laterality Date DENTAL SURGERY PROCEDURE NEC NC APPENDECTOMY NC TONSILLECTOMY PRIMARY/SECONDARY LESS THAN AGE 12 Current outpatient prescriptions Current Outpatient Medications Medication Sig Dispense Refill 6.75-0.2 MG Oral Tablet Take by mouth. Unsure of dosage. Fluticasone Propionate 50 MCG/ACT Nasal Suspension (Flonase Allergy Relief) Administer 1 [place] intonostril in the morning. (Patient not taking: Reported on 02/08/2024) Loratadine 10 MG Oral Capsule (Claritin) Take 1 Capsule by mouth in the morning. (Patient not taking: Reported on 02/08/2024) buPROPion HCl ER (XL) 150 MG Oral Tablet Extended Release 24 Hour (Wellbutrin XL) Take 1 Tablet by mouth in the morning. (Patient not taking: Reported on 02/08/2024) 30 Tablet 5 No current facility-administered medications for this visit. Review of patient's allergies indicates: Allergen Reactions Covid-19 (Mrna) Vaccine Any covid vaccine Fluarix [Influenza Virus Vaccine] Any flu vaccine Latex rash Social History Social History Socioeconomic History Marital status: Single Spouse name: Not on file Number of children: Not on file Years of education: Not on file Highest education level: Not on file Occupational History Not on file Tobacco Use Smoking status: Some Days Types: Cigarettes Smokeless tobacco: Never Vaping Use Vaping status: Every Day Substance and Sexual Activity Alcohol use: Not Currently Comment: occasionally Drug use: Never Sexual activity: Yes Partners: Male Other Topics Concern Not on file Social History Narrative Not on file Social Needs Financial Resource Strain: Low Risk (12/31/2023) Financial Resource Strain Do you have any trouble paying for your medications, or do you think you might in the future? (Adult - for ages 18 years and over): No Does your family have trouble paying for medicine? (Household - for ages 0-17 years): Not on file Food Insecurity: No Food Insecurity (12/31/2023) Food Insecurity Do you need food for this week? (Adult - for ages 18 years and over): No Are you able to get enough food for your family? (Household - for ages 0-17 years): Not on file Does your family need food this week? (Household - for ages 0-17 years): Not on file Do you always have enough food for your family? (Household - for ages 0-17 years): Not on file Transportation Needs: No Transportation Needs (12/31/2023) Transportation Needs Do you have trouble getting a ride to medical visits or work? (Adult - for ages 18 years and over):Not on file Does your family have a hard time getting a ride to doctors’ visits? (Household - for ages 0-17 years): Not on file Has lack of transportation kept you from medical appointments, meetings, work, or from getting things needed for daily living? Check all that apply. (Adult - for ages 18 years and over): No Do you (or your family) have trouble finding or paying for a ride (transportation)? (Household - for ages 0-17 years): Not on file Social Connections: Socially Integrated (12/31/2023) Social Connections How often do you feel lonely or isolated from those around you? (Adult - for ages 18 years and over): Never Housing Stability: Low Risk (12/31/2023) Housing Stability Do you currently live in a skilled nursing or have no steady place to sleep at night? (Adult - for ages 18 years and over): No Do you think you are at risk of becoming homeless? (Adult - for ages 18 years and over): Not on file Does your family worry about paying for your home or becoming homeless? (Household - for ages 0-17 years): Not on file Are you homeless or worried that you might be in the future? (Adult - for ages 18 years and over): No Are you (or your family) homeless or worried that you might be in the future? (Household - for ages0-17 years): Not on file Family History Family History Problem Relation Name Age of Onset Bipolar Disorder Mother Total abdominal hysterectomy Mother Hypertension Father Diabetes Father Stroke Father Bipolar Disorder Sister Autism spectrum disorder Brother Mental illness Grandmother (Maternal) Diabetes Grandfather (Maternal) Heart disease Grandmother (Paternal) Obstetric History OB History Para Term AB Living 1 SAB IAB Ectopic Multiple Live Births # Outcome Date GA Lbr Dariel/2nd Weight Sex Type Anes PTL Lv 1 Current PHYSICAL EXAM: See physical IMPRESSION: Encounter for supervision of normal first in first trimester (Primary) - CULTURE, URINE, QUANTITATIVE; Future; Expected date: 02/28/2024 - TYPE AND SCREEN; Future; Expected date: 02/28/2024 - RUBELLA IGG ANTIBODY; Future; Expected date: 02/28/2024 - HEPATITIS B SURFACE ANTIGEN; Future; Expected date: 02/28/2024 - HIV ANTIGEN & ANTIBODY SCREEN W/ CONFIRMATION; Future; Expected date: 02/28/2024 - CHLAMYDIA TRACHOMATIS AND NEISSERIA GONORRHOEAE, AMPLIFIED PROBE; Future; Expected date: 02/28/2024 - ABO/RH; Future; Expected date: 02/28/2024 - CBC WITH WBC DIFFERENTIAL AND ANEMIA REFLEX WORKUP; Future; Expected date: 02/28/2024 - HEPATITIS C ANTIBODY SCREEN WITH PROGRESSION TO HEPATITIS C RNA QUANTITATIVE; Future; Expected date: 02/28/2024 - SYPHILIS ANTIBODY SCREEN WITH REFLEX TO RPR; Future; Expected date: 02/28/2024 - A CLASS LINEMAN PAP SCREEN; Future; Expected date: 02/28/2024 - URINALYSIS OBSTETRICS, POINT OF CARE - 50-G GESTATIONAL GLUCOSE, 1 HOUR; Future; Expected date: 03/30/2024 - CULTURE, URINE, QUANTITATIVE - CHLAMYDIA TRACHOMATIS AND NEISSERIA GONORRHOEAE, AMPLIFIED PROBE - A CLASS LINEMAN PAP SCREEN PCOS (polycystic ovarian syndrome) - 50-G GESTATIONAL GLUCOSE, 1 HOUR; Future; Expected date: 03/30/2024 Follow Up: Return in about 4 weeks (around 03/27/2024) for randy. | For: randy | Check-out note: Lab today Glucola with next visit DURGA Paige * Jessenia Smiley CMA - 02/28/2024 9:15 AM EST 9w6d + nausea/vomiting + headaches Last pap 12/2022 documented in this encounter Plan of Treatment Upcoming Encounters Date Type Department Care Team (Late st Contact Info) Description 03/28/2024 8:20 AM EST [facility] [address] [place] [phone] [facility] [address] [place] [address] 03/28/2024 8:30 AM EST Office Visit Gynecology/Obstetrics [facility] [address] [place] [address] Henny Santana CRNP [address] [place] [address] Pending Results Name Type Priority Associated Diagnoses Date /Time CULTURE, URINE, QUANTITATIVE Lab Routine Encounter for supervision of normal first in first trimester 02/28/2024 9:45 AM EST TYPE AND SCREEN Lab Routine Encounter for [...] in first trimester 02/28/2024 9:55 AM EST CHLAMYDIA TRACHOMATIS AND NEISSERIA GONORRHOEAE, AMPLIFIED PROBE Lab Routine Encounter for supervision of normal first in first trimester 02/28/2024 9:45 AM EST ABO/RH Lab Routine Encounter for supervision of normal first in first trimester 02/28/2024 10:04 AM EST CBC WITH WBC DIFFERENTIAL AND [...] in first trimester 02/28/2024 9:55 AM EST A CLASS LINEMAN PAP SCREEN Pathology Routine Encounter for supervision of normal first in first trimester 02/28/2024 9:45 AM EST Scheduled Orders Name Type Priority Associated Diagnoses Orde r Schedule CULTURE, URINE, QUANTITATIVE Lab Routine Encounter for supervision of normal first in first trimester Expected: 02/28/2024, Expires: 02/27/2025 TYPE AND SCREEN Lab Routine Encounter for supervision of normal first in first trimester Expected: 02/28/2024 (Approximate), Expires: 03/30/2025 RUBELLA IGG ANTIBODY Lab Routine Encounter for supervision of normal first in first trimester Expected: 02/28/2024 (Approximate), Expires: 02/27/2025 HEPATITIS B SURFACE ANTIGEN Lab Routine Encounter for supervision of normal first in first trimester Expected: 02/28/2024 (Approximate), Expires: 02/27/2025 HIV ANTIGEN & ANTIBODY SCREEN W/ CONFIRMATION Lab Routine Encounter for supervision of normal first in first trimester Expected: 02/28/2024, Expires: 02/27/2025 CHLAMYDIA TRACHOMATIS AND NEISSERIA GONORRHOEAE, AMPLIFIED PROBE Lab Routine Encounter for supervision of normal first in first trimester Expected: 02/28/2024, Expires: 02/27/2025 ABO/RH Lab Routine Encounter for supervision of normal first in first trimester Expected: 02/28/2024, Expires: 03/30/2025 CBC WITH WBC DIFFERENTIAL AND ANEMIA REFLEX WORKUP Lab Routine Encounter for supervision of normal first in first trimester Expected: 02/28/2024, Expires: 02/27/2025 HEPATITIS C ANTIBODY SCREEN WITH PROGRESSION TO HEPATITIS C RNA QUANTITATIVE Lab Routine Encounter for supervision of normal first in first trimester Expected: 02/28/2024, Expires: 02/27/2025 SYPHILIS ANTIBODY SCREEN WITH REFLEX TO RPR Lab Routine Encounter for supervision of normal first in first trimester Expected: 02/28/2024, Expires: 02/27/2025 A CLASS LINEMAN PAP SCREEN Pathology Routine Encounter for supervision of normal first in first trimester Expected: 02/28/2024, Expires: 03/30/2025 50-G GESTATIONAL GLUCOSE, 1 HOUR Lab Routine Encounter for supervision of normal first in first trimester PCOS (polycystic ovarian syndrome) Expected: 03/30/2024 (Approximate), Expires: 02/27/2025 Health Maintenance Due Date Last Done Comments HIV Screening 12/06/2010 Hepatitis C Screening 12/06/2013 Pneumococcal Vaccine: Pediatrics (0 to 5 Years) and At-Risk Patients (6 to 18 Years and 19+ Years) (1 of 2 - PCV) 12/06/2014 Pap Smear 12/06/2016 COVID-19 Vaccine (1 - season) 2023 Influenza [...] Procedure Name Priority Date/Time Associated Diagnosis Comments URINALYSIS OBSTETRICS, POINT OF CARE Routine 02/28/2024 9:43 AM EST Encounter for supervision of normal first in first trimester documented in this encounter Results * (ABNORMAL) URINALYSIS OBSTETRICS, POINT OF CARE (02/28/2024 9:43 AM EST) Color, Urine Yellow Light Yellow, Yellow 02/28/2024 9:46 AM EST [facility] [place] [facility] Clarity, Urine Clear Clear 02/28/2024 9:46 AM EST [facility] [place] [facility] Glucose, Urine Negative Negative mg/dL 02/28/2024 9:46 AM EST [facility] [place] [facility] Bilirubin, Urine Negative Negative 02/28/2024 9:46 AM EST [facility] [place] [facility] Ketone, Urine Negative Negative mg/dL 02/28/2024 9:46 AM EST [facility] [place] [facility] Specific [place], Urine 1.025 1.003 - 1.030 02/28/2024 9:46 AM EST [facility] [place] [facility] Blood, Urine Negative Negative 02/28/2024 9:46 AM EST [facility] [place] [facility] pH, Urine 7.0 5.0, 5.5, 6.0, 6.5, 7.0, 7.5 units 02/28/2024 9:46 AM EST [facility] [place] [facility] Protein, Urine Negative Negative mg/dL 02/28/2024 9:46 AM EST [facility] [place] [facility] Urobilinogen, Urine 0.2 0.2, 1.0 mg/dL 02/28/2024 9:46 AM EST [facility] [place] [facility] Nitrite, Urine Positive(A) Negative 02/28/2024 9:46 AM EST [facility] [place] [facility] Esterase, Urine Moderate(A) Negative 02/28/2024 9:46 AM EST [facility] [place] [facility] Urine 02/28/2024 9:4 3 AM EST 02/28/2024 9:46 AM EST Henny CALIXTO LAB POINT OF CARE TE ST DOCKED DEVICE UNSOLICITED RESULTS Final Result [facility] [place] [facility] [address] [facility] [place] [address] documented in this encounter Visit Diagnoses Diagnosis Encounter for supervision of normal first in first trimester- Primary Supervision of normal first PCOS (polycystic ovarian syndrome) Polycystic ovaries documented in this encounter Care Teams Menagerie Superintendent Relationship Specialty Start Date End Date Álvaro Martínez PA-C [address] [facility] [place] [address] PCP - General Physician Nurse'S Companion 12/31/23 documented as of this encounter"
--- OUTSIDE RECORDS SUMMARY | 2024-07-12 04:49 | External Medical Summary | Summary of Care ---
Author Name Unknown Organization [facility] Address [address] [facility] [place] [address] Phone [phone] Care Team Providers Care Plaster Machine Operator Name Role Phone Álvaro Martínez PA-C Primary Care Provider Reason for Visit * Reason Comments Outpatient Testing Encounter Details Date Type Department Care Team (Late st Contact Info) Description 02/28/2024 9:50 AM [facility] Laboratory Laboratory, [facility] [address] [facility] [place] [address] [facility] [address] [facility] [address] Encounter for supervision of normal first in first trimester Allergies Active Allergy Reactions Criticality Noted Date Comments Covid-19 (Mrna) Vaccine 12/31/2023 Any covid vaccine Influenza Virus Vaccine 12/31/2023 Any flu vaccine Latex 12/31/2023 rash documented as of this encounter (statuses as of 02/28/2024) Medications Fluticasone Propionate 50 MCG/ACT Nasal Suspension (Flonase Allergy Relief) Administer 1 [place] into nostril in the morning. Active Loratadine [...] have money to get more. Patient declined [place] Depression Scale Answer Date Recorded [place] Depression Scale Total 8 02/28/2024 The thought [...] Description 03/28/2024 8:20 AM EST Laboratory Laboratory, [facility] [place] [address] [facility] [address] [facility] [place] [address] 03/28/2024 8:30 AM EST Office Visit Gynecology/Obstetrics [facility] [address] [facility] [place] [address] Henny Santana CRNP [address] [place] [address] Pending Results Name Type Priority Associated Diagnoses [...] first documented in this encounter Care Teams Plaster Machine Operator Relationship Specialty Start Date End Date Álvaro Martínez PA-C [address] [facility] [place] [address] PCP - General Physician Bench Worker Helper 12/31/23 documented as of this encounter
--- OUTSIDE RECORDS SUMMARY | 2024-07-12 04:50 | External Medical Summary | Summary of Care ---
Author Name Unknown Organization [facility] Address [address] [place] [address] Phone [phone] Care Team Providers Care Invisible Braces Orthodontist Name Role Phone Álvaro Martínez PA-C Primary Care Provider Reason for Visit * Reason Onset Date Comments Advice 01/28/2024 Encounter Details Date Type Department Care Team (Late st Contact Info) Description 01/28/2024 Telephone Gynecology/Obstetrics [address] [place] [address] Services, Scheduling [address] [place] [address] Advice Allergies Active Allergy Reactions Criticality Noted Date Comments Covid-19 (Mrna) Vaccine 12/31/2023 Any covid vaccine Influenza Virus Vaccine 12/31/2023 Any flu vaccine Latex 12/31/2023 rash documented as of this encounter (statuses as of 01/28/2024) Medications Fluticasone Propionate 50 MCG/ACT Nasal Suspension (Flonase Allergy Relief) Administer 1 [place] into nostril in the morning. Active Loratadine 10 MG Oral Capsule (Claritin) Take 1 Capsule by mouth in the morning. Active buPROPion HCl ER (XL) 150 MG Oral Tablet Extended Release 24 Hour (Wellbutrin XL) Take 1 Tablet by mouth in the morning. 30 Tablet 5 Active documented as of this encounter (statuses as of 01/28/2024) Active Problems Problem Noted Date Diagnosed Date Moderate episode of recurrent major depressive d isorder 12/31/2023 PCOS (polycystic ovarian syndrome) 12/31/2023 PTSD (post-traumatic stress disorder) 12/31/2023 documented as of this encounter (statuses as of 01/28/2024) Immunizations Name Administration Dates Next Due DTaP [...] Types Packs/Day Years Used Date Smoking Tobacco: Every Day Cigarettes Smokeless Tobacco: Never Alcohol Use Standard Drinks/Week Comments Yes 0 (1 standard drink = 0.6 oz [...] 12/31/2023 Does the household have a re lar source of income? (Household - for ages [...] 0-17 years) Not on file 12/31/2023 Comments Unknown Sex and Gender Information Value Date Recorded Sex Assigned at Female 12/31/2023 11:17 AM EDT Legal Sex Female 6:09 PM EDT Gender Identity Female 12/31/2023 11:17 AM EDT Sexual Orientation Straight 12/31/2023 11 :17 AM EDT documented as of this encounter Miscellaneous Notes * Telephone Encounter - Zohra Diggs LPN - 01/28/2024 3:12 PM EST Pt called In with having right flank pain since yesterday pt bent over to pick something up yesterday and since she has been having right back pain. Pt has not tried any tylenol. Pt denies any burning with urination. Denies any pain with urination and denies any blood in urine. I instructed pt to take tylenol and use a warm compress on her back if she feels she pulled something. And see how she feels over the next couple hours and if still having pain to call us back triage number was provided.Pt verbalized understanding. * Telephone Encounter - Kale Goode OSA - 01/28/2024 3:11 PM EST Received pts call stating she had her NPN set up but she's been experiencing right flank pain and wanted to discuss with a nurse. Call was warm transferred to clinic and call back number provided if pt needed. Thank you. documented in this encounter Plan of Treatment Upcoming Encounters Date Type Department Care Team (Late st Contact Info) Description 02/13/2024 1:45 PM EST Nurse Only Gynecology/Obstetrics [facility] [address] [place] [address] Gw, Nurse Standard Machine Stitcher New [address] [place] [address] 02/28/2024 8:15 AM EST Imaging Radiology [facility] 2nd Floor, [place] [address] [place] [address] 02/28/2024 9:15 AM EST Office Visit Gynecology/Obstetrics [facility] [address] [place] [address] Henny Santana CRNP [address] [place] [address] Health Maintenance Due Date Last Done Comments Pneumococcal Vaccine: Pediatrics (0 to 5 Years) and At-Risk Patients (6 to 64 Years) (1 of 2 - PCV) 12/06/2001 HIV Screening 12/06/2010 Hepatitis C Screening 12/06/2013 Pap Smear 12/06/2016 COVID-19 Vaccine ( - [...] filedocumented as of this encounter Care Teams Invisible Braces Orthodontist Relationship Specialty Start Date End Date Álvaor Martínez PA-C [address] [facility] [place] [address] PCP - General Physician Mold Runner 12/31/23 documented as of this encounter
--- OUTSIDE RECORDS SUMMARY | 2024-07-12 04:50 | External Medical Summary | Summary of Care ---
Author Name Unknown Organization [facility] Address [address] [place] [address] Phone [phone] Care Team Providers Care Punchboard Stuffer Name Role Phone Álvaro Martínez PA-C Primary Care Provider Reason for Visit * Reason Onset Date Comments Order Request 01/22/2024 Dating us Encounter Details Date Type Department Care Team (Late st Contact Info) Description 01/22/2024 Telephone Gynecology/Obstetrics [facility] [address] [place] [address] Henny Santana CRNP [address] [place] [address] Order Request (Dating us ) Allergies Active Allergy Reactions Criticality Noted Date Comments Covid-19 (Mrna) Vaccine 12/31/2023 Any covid vaccine Influenza Virus Vaccine 12/31/2023 Any flu vaccine Latex 12/31/2023 rash documented as of this encounter (statuses as of 01/23/2024) Medications Fluticasone Propionate 50 MCG/ACT Nasal Suspension (Flonase Allergy Relief) Administer 1 [place] into nostril in the morning. Active Loratadine 10 MG Oral Capsule (Claritin) Take 1 Capsule by mouth in the morning. Active buPROPion HCl ER (XL) 150 MG Oral Tablet Extended Release 24 Hour (Wellbutrin XL) Take 1 Tablet by mouth in the morning. 30 Tablet 5 Active documented as of this encounter (statuses as of 01/23/2024) Active Problems Problem Noted Date Diagnosed Date Moderate episode of recurrent major depressive d isorder 12/31/2023 PCOS (polycystic ovarian syndrome) 12/31/2023 PTSD (post-traumatic stress disorder) 12/31/2023 documented as of this encounter (statuses as of 01/23/2024) Immunizations Name Administration Dates Next Due DTaP [...] encounter Miscellaneous Notes * Telephone Encounter - Krysta Griggs OSA - 01/22/2024 10:51 AM EST Dating US scheduled prior to NOB; Please place order and send back to me documented in this encounter Plan of Treatment Upcoming Encounters Date Type Department Care Team (Late st Contact Info) Description 02/11/2024 2:20 PM EST Office Visit Family Practice [address] [place] [address] Álvaro Martínez PA-C [address] [place] [address] 02/13/2024 1:45 PM EST Nurse Only Gynecology/Obstetrics [facility] [address] [facility] [place] [address] Gw, Nurse Load Tester [facility] [address] [facility] [place] [address] 02/28/2024 8:15 AM EST Imaging Radiology [facility] 2nd Floor, [place] [address] [address] [facility] [place] [address] 02/28/2024 9:15 AM EST Office Visit Gynecology/Obstetrics [facility] [address] [address] [facility] [place] [address] Henny Santana CRNP [address] [facility] [place] [address] Scheduled Orders Name Type Priority Associated Diagnoses Orde r Schedule US PELVIS TRANS-VAGINAL OB Medical Imaging Routine Early stage of Expected: 01/22/2024 (Approximate), Expires: 02/20/2025 Health Maintenance Due Date Last Done Comments [...] as of this encounter Visit Diagnoses Diagnosis Early stage of - Primary documented in this encounter Care Teams Punchboard Stuffer Relationship Specialty Start Date End Date Álvaro Martínez PA-C [address] [facility] [address] [place] [address] PCP - General Physician [place] Straightener Stamper 12/31/23 documented as of this encounter
[2024-07-12] MEDS: SODIUM CHLORIDE 0.9% 1,000 ML IV SCH (06:24)
--- NOTE | 2024-07-12 06:36 | Consultation ---
Date of Consultation July 12, 2024 Assessment & Plan (1) UTI (urinary tract infection): Present on Admission?: Yes (2) Acute right flank pain: Present on Admission?: Yes (3) : Present on Admission?: Yes (4) Pyelonephritis: Present on Admission?: Yes Plan pt 28 yr old IUP at 2 8 weeks , pyelonephritis IV Rocephin Tylenol for pain Regular diet after 24 hr of Rocephin, if the pt is clinically improving, pt can be discharged home if afebrile on Keflex PO 500 mg TID x 7 days we will follow in the office in a week Follow urine culture results NST daily History of Present Illness Requesting Physician: Dr. Wilkerson Reason for Consultation: UTI/Pyelonephritis in Attending Physician: Edson Marcelo MD History of Present Illness 28-year-old female 29-week with past med significant for PCOS, depression, PTSD comes because of nausea fever and right flank pain. Patient having symptoms of nausea and right flank pain and fever since Sunday. She went to [facility] and was found to have pyelonephritis and received dose of IV antibiotic and discharged home on p.o. cefpodoxime. At [place] [facility] ultrasound showed : mild polyhydramnios at 29 cm. Patient followed with [facility] on 07/10/2024 and has a plan to repeat ultrasound next week. And was advised to go to ER again if the symptoms does not improve. Patient was still having low-grade temperature and nausea and having right flank pain and came to the ER today. Denies any chest pain or shortness of breath, cough, headache. reports difficulty urinating at home. Denies uterine contractions, vaginal bleeding, leaking of fluid per vagina etc. Reports good movement. labs and imaging studies in the chart Allergies Allergy/AdvReac Type Severity Reaction Status Date / Time latex Allergy Verified 07/12/24 00:24 Home Medications Medication Instructions Recorded Confirmed Type cefpodoxime 200 mg tablet 200 mg PO Q12 07/12/24 07/12/24 History cyanocobalamin (vitamin B-12) 1,000 mcg PO DAILY 07/12/24 07/12/24 History 1,000 mcg tablet ondansetron HCl 4 mg tablet 4 mg PO UD PRN Nausea 07/12/24 07/12/24 History vit no.95-ferrous 1 tab PO DAILY 07/12/24 07/12/24 History fumarate 28 mg-folic acid 800 mcg tablet () Patient History Social History Smoking Status: Current some day smoker Tobacco Type: Cigarettes Second Hand Exposure: No; Do You Dip or Chew Tobacco: No; Tobacco Cessation Education Requested by Patient: No Hx Alcohol Use: Yes Hx Substance Use: No Preferred Language: Pashto Communication Ability: Effective Consumer Insight Manager Required: No Current Living Situation: Spouse Other Information That Helps Us Care for You: No Feels Safe at Home: Yes Safety Concerns: Feels Safe At This Time Assistive Devices: None Review of Systems Review of Systems: All systems reviewed & are unremarkable except as noted in HPI & below Constitutional: as per Subjective / HPI Respiratory: as per Subjective / HPI Cardiovascular: as per Subjective / HPI Genitourinary: as per Subjective / HPI, + dysuria, + difficulty urinating and + flank pain Physical Exam Constitutional: WD/WN, vitals as above Respiratory: normal respiratory effort, lungs clear to auscultation Cardiovascular: RRR, no murmur, no edema Gastrointestinal (Abdomen): normal bowel sounds, soft, nontender, no hepatosplenomegaly Skin: no rashes, warm and dry Psychiatric: A+Ox3, euthymic affect Lymphatic: heart beat 140s. Results & Data Vital Signs (Past 12 Hours) Vital Signs Temp Pulse Pulse Resp BP BP Pulse Ox 07/12/24 05:04 84 18 99/55 L 97 07/12/24 04:22 85 07/12/24 04:05 106/54 L 07/12/24 03:00 90 12 07/12/24 02:18 87 22 97/57 L 97 07/12/24 01:42 88 23 88/42 L 96 07/12/24 01:18 91 H 18 07/12/24 00:28 111 H 07/12/24 00:02 37.2 C 109 H 16 116/80 98 O2 Del Method 07/12/24 05:04 Room Air 07/12/24 04:22 07/12/24 04:05 07/12/24 03:00 07/12/24 02:18 Room Air 07/12/24 01:42 Room Air 07/12/24 01:18 07/12/24 00:28 07/12/24 00:02 Room Air (1) UTI (urinary tract infection) Hematuria presence: without hematuria Urinary tract infection type: site unspecified Qualified Code(s): N39.0 - Urinary tract infection, site not specified (3) Weeks of gestation: 29 weeks Qualified Code(s): Z3A.29 - 29 weeks gestation of
[2024-07-12 07:18] LABS: Basophils # (auto) 0.03 K/uL (0.00-0.20); Basophils % (auto) 0.4 %; Eosinophils # (auto) 0.05 K/uL (0.00-0.50); Eosinophils % (auto) 0.6 %; Hematocrit (blood only) 27.9 % (37.0-47.0); Hemoglobin 9.4 g/dl (12.0-16.0); Immature Granulocytes % (auto) 1.2 %; Lymphocytes # (auto) 1.85 K/uL (1.20-3.40); Lymphocytes % (auto) 22.5 %; Mean Corpuscular Hemoglobin 28.9 pg (25.0-34.0); Mean Corpuscular Hgb Conc 33.7 g/dL (32.0-36.0); Mean Corpuscular Volume 85.8 fL (80.0-100.0); Mean Platelet Volume 12.3 fL (9.4-12.4); Monocytes # (auto) 0.39 K/uL (0.11-0.59); Monocytes % (auto) 4.7 %; Neutrophils # (auto) 5.82 K/uL (1.40-6.50); Neutrophils % (auto) 70.6 %; Platelet Count 121 K/uL (130-400); RDW Coefficient of Variation 14.2 % (11.5-14.5); Red Blood Count 3.25 M/uL (4.20-5.40); White Blood Count 8.24 K/ul (4.8-10.8)
[2024-07-12 07:39] LABS: BUN Creatinine Ratio 6.4 (10-20); Calcium 7.4 mg/dl (8.6-10.3); Creatinine Clr Calc Pharmacy 164.4 ml/min; Magnesium 1.6 mg/dl (1.7-2.4); Potassium 3.4 mmol/L (3.5-5.1)
[2024-07-12] MEDS: ONDANSETRON INJ 2 MG/ML 2 ML VIAL IV PRN (10:00)
[2024-07-12] MEDS: CYANOCOBALAMIN (B-12) 500 MCG TABLET PO SCH (10:00)
[2024-07-12] MEDS: PRENATAL VITAMIN 1 TAB PO SCH (10:00)
[2024-07-12] MEDS: POTASSIUM CHLORIDE CRTAB 20 MEQ TABCR PO STA (10:00)
[2024-07-12] MEDS: MAGNESIUM SULFATE / D5W 1 GM/100 ML BAG IV ONE (10:06)
[2024-07-12] MEDS: ACETAMINOPHEN 500 MG TAB PO PRN (10:20)
--- NOTE | 2024-07-12 13:08 | Hospitalist Progress Note ---
Date of Service July 12, 2024 Assessment & Plan (1) UTI (urinary tract infection): Plan: 28-year-old female 29-week comes because of nausea, fever and right flank pain. Patient having symptoms of nausea and right flank pain and fever since Sunday. She went to [facility] and was found to have pyelonephritis and received dose of IV antibiotic and discharged home on p.o. cefpodoxime. At [facility] ultrasound showed fetus probably mild polyhydramnios at 29 cm. Patient followed with [facility] GAMBRELER on 07/10/2024 and has a plan to repeat ultrasound next week. And was advised to go to ER again if the symptoms does not improve. Patient was still having low-grade temperature and nausea and having right flank pain and came to the ER today. Somewhat constipated. Not micturating much at home but in the ER after fluids she was able to micturate. Has some pain with micturition. Denies any chest pain or shortness of breath. No cough. No headache. No runny nose. Hemodynamics are okay. #UTI #Right flank pain and nausea and fever #Probable pyelonephritis admitted to med/surg reviewed PH urine culture which is attached above document > 100k Staph Epidermis Renal US: unremarkable Will follow cultures continue Rocephin Continue IVF until tolerating diet 29-week Question of mild polyhydramnios Continue vitamins GAMBRELER consult daily NSTS, d/c on oral antibiotics once pain improved #Anemia in setting of hgb 9.4, 11.2 on admission, likely dilutional monitor h/h , continue hgb #Hypokalemia #Hypomagnesemia replace DVT prophylaxis SCDs Disposition Medical floor Full code. This note does not reflect a billable service as pt was admitted after 00:00 on 07/12/24. Admission and Anticipated Discharge Date Admission Date: July 12, 2024 Supervising Physician Co-Signing Physician Notes I have reviewed the advanced practitioner's documentation, and I agree with, and take responsibility for the plan of care I spent a total of 20 minutes coordinating, documenting, and providing care for this patient excluding time spent in the performance of separately billed services. All of the aforementioned completed while collaborating with the assigned advanced practitioner for a full treatment plan Subjective Pt was seen in room 388-2. Lissethance at bedside helps elicit hx. She reports continued R flank pain, nonradiating. She feels the pain is a bit better then when she came to hospital. She still has nausea and urinary urgency. She denies any ankit abd pain or cramping. Admits to sound round ligament pain when changing position. Denies f/c/s, chest pain, sob, diarrhea. She is moving her bowels. Review of Systems 2 Review of Systems: All systems reviewed & are unremarkable except as noted in HPI & below Physical Exam 2 Physical Exam: Gen: WD/WN, NAD, F, A&O x3 HEENT: Normocephalic, atraumatic, conjunctivae moist, sclerae anicteric, mucous membranes moist. Lung: Clear to Auscultation bilaterally, no wheezes/rales/rhonchi Heart: Regular rate, regular rhythm, no murmurs, rubs, or gallops Abdomen: +, Soft, +R CVA tenderness Extremities: No edema Skin: Warm, no rash, negative turgor. Results & Data Results & Data Vital Signs (Past 12 Hours) Vital Signs Temp Pulse Pulse Pulse Resp BP BP 07/12/24 08:06 36.6 C 80 16 93/58 L 07/12/24 06:44 37.0 C 82 14 108/59 L 07/12/24 05:04 84 18 99/55 L 07/12/24 04:22 85 07/12/24 04:05 106/54 L 07/12/24 03:00 90 12 07/12/24 02:18 87 22 97/57 L 07/12/24 01:42 88 23 88/42 L 07/12/24 01:18 91 H 18 Pulse Ox O2 Del Method 07/12/24 08:06 97 Room Air 07/12/24 06:44 97 Room Air 07/12/24 05:04 97 Room Air 07/12/24 04:22 07/12/24 04:05 07/12/24 03:00 07/12/24 02:18 97 Room Air 07/12/24 01:42 96 Room Air 07/12/24 01:18 Laboratory Results Short CBC 07/12/24 07/12/24 Range/Units 00:15 06:45 WBC 11.20 H 8.24 (4.8-10.8) K/ul Hgb 11.2 L 9.4 L (12.0-16.0) g/dl Hct 34.0 L 27.9 L (37.0-47.0) % Plt Count 133 121 L (130-400) K/uL BMP 07/12/24 07/12/24 00:15 06:45 Sodium 135 L 138 Potassium 3.7 3.4 L Chloride 103 109 H Carbon Dioxide 25 23 BUN 5 L 3 L Creatinine 0.53 L 0.47 L Glucose 95 89 Calcium 8.5 L 7.4 L Liver Function 07/12/24 Range/Units 00:15 Total Bilirubin 0.3 (0.2-1.0) mg/dl AST 18 (13-39) U/L ALT 11 (7-52) U/L Alkaline Phosphatase 107 H (34-104) U/L Albumin 3.4 (3.4-5.0) gm/dl Urine 07/12/24 Range/Units 00:13 Urine Color Dark Yellow Urine Appearance Turbid A (Clear) Urine pH 6.0 (4.5-7.5) Ur Specific [place] 1.032 H (1.000-1.030) Urine Protein 3+ H (Negative) Urine Glucose (UA) Trace H (Negative) I have independently reviewed and interpreted patient's cbc, bmp, mag Diagnostic Findings Medications Administered Current Inpatient Medications Acetaminophen (Acetaminophen 500 Mg Tab) 500 mg PO Q6H PRN PRN Reason: pain/fever Stop: 08/11/24 10:07 Last Admin: 07/12/24 10:20 Dose: 500 mg Cyanocobalamin (Cyanocobalamin (B-12) 500 Mcg Tablet) 1,000 mcg PO DAILY АННА Stop: 08/11/24 08:59 Last Admin: 07/12/24 10:00 Dose: 1,000 mcg Ferrous Sulfate (Ferrous Sulfate 325 Mg Tab) 325 mg PO HS АННА Stop: 08/11/24 20:59 Sodium Chloride (Nss) 1,000 mls @ 80 mls/hr IV .[id number] АННА Stop: 07/15/24 05:52 Last Admin: 07/12/24 06:24 Dose: 80 mls/hr Ceftriaxone Sodium (Rocephin) 2,000 mg in 50 mls @ 100 mls/hr IV Q24H АННА Stop: 07/18/24 02:59 Ondansetron HCl (Ondansetron Inj 2 Mg/Ml 2 Ml Vial) 4 mg IV Q6H PRN PRN Reason: Nausea Stop: 08/11/24 05:52 Last Admin: 07/12/24 10:00 Dose: 4 mg Prenat Multivit/Vehicle Mechanic/Iron/Folic Ac ( Vitamin 1 Tab) 1 tab PO DAILY АННА Stop: 08/11/24 08:59 Last Admin: 07/12/24 10:00 Dose: 1 tab (1) UTI (urinary tract infection) Hematuria presence: without hematuria Urinary tract infection type: site unspecified Qualified Code(s): N39.0 - Urinary tract infection, site not specified
[2024-07-12] MEDS: FERROUS SULFATE 325 MG TAB PO SCH (21:23)
[2024-07-13] MEDS: cefTRIAXone SODIUM 2,000 MG/50 ML BAG IV SCH (03:35)
--- NOTE | 2024-07-13 07:22 | Hospitalist Progress Note ---
Date of Service July 13, 2024 Assessment & Plan (1) UTI (urinary tract infection): Plan: 28-year-old female 29-week comes because of nausea, fever and right flank pain. Patient having symptoms of nausea and right flank pain and fever since Sunday. She went to [facility] and was found to have pyelonephritis and received dose of IV antibiotic and discharged home on p.o. cefpodoxime. At [facility] ultrasound showed fetus probably mild polyhydramnios at 29 cm. [facility]24 and has a plan to repeat ultrasound next week. And was advised to go to ER again if the symptoms does not improve. Patient was still having low-grade temperature and nausea and having right flank pain and came to the ER today. Somewhat constipated. Not micturating much at home but in the ER after fluids she was ab le to micturate. Has some pain with micturition. Denies any chest pain or shortness of breath. No cough. No headache. No runny nose. Hemodynamics are okay. #UTI #Right flank pain and nausea and fever #Probable pyelonephritis admitted to med/surg reviewed urine culture which is attached above document > 100k Staph Epidermis Renal US: unremarkable urine cultures: re incubating; BC NGTD, pt also reports NGTD from as well continue Rocephin D/C IVF as pt now tolerating diet. Tylenol for pain #Probable yeast infection Discussed with SUPERVISOR BOARDING for tx who recommends vaginal miconazole at HS 29-week Question of mild polyhydramnios Continue vitamins SUPERVISOR BOARDING consult daily NSTS, d/c on oral antibiotics once pain improved #Anemia in setting of hgb 9.4, 11.2 on admission, likely dilutional monitor h/h , continue hgb #Hypokalemia #Hypomagnesemia replace DVT prophylaxis SCDs Disposition Medical floor, anticipate discharge tomorrow, will need close OP follow up with SUPERVISOR BOARDING Full code. Pt was seen and examined in collaboration with Dr. Marcelo, please see addendum I spent a total of 46 minutes coordinating, documenting and providing care for this patient excluding time spent in the performance of separately billed services or time spent by another provider/QHP. Admission and Anticipated Discharge Date Admission Date: July 12, 2024 Supervising Physician Co-Signing Physician Notes I have reviewed the advanced practitioner's documentation, and I agree with, and take responsibility for the plan of care I spent a total of 20 minutes coordinating, documenting, and providing care for this patient excluding time spent in the performance of separately billed services. All of the aforementioned completed while collaborating with the assigned advanced practitioner for a full treatment plan Subjective Pt was seen in room 388-2. Fiance at bedside helps elicit hx. She continues to have 7/10 R flank pain, worse with movement of any kind, better with rest. She is tolerating a diet now and drinking fluids. She feels her feet are getting, "puffy." She no longer is having nausea. She denies f/c/s, chest pain, sob, vomiting, dysuria, hematuria. She feels her urgency has improved. Review of Systems Review of Systems: All systems reviewed & are unremarkable except as noted in HPI & below Physical Exam Physical Exam: Gen: WD/WN, NAD, F, A&O x3 HEENT: Normocephalic, atraumatic, conjunctivae moist, sclerae anicteric, mucous membranes moist. Lung: Clear to Auscultation bilaterally, no wheezes/rales/rhonchi Heart: Regular rate, regular rhythm, no murmurs, rubs, or gallops Abdomen: +, Soft, +R CVA tenderness Extremities: No edema Skin: Warm, no rash, negative turgor. Results & Data Results & Data Laboratory Results I have independently reviewed and interpreted patient's CBC, BMP Short CBC 07/13/24 Range/Units 06:43 WBC 7.09 (4.8-10.8) K/ul Hgb 9.3 L (12.0-16.0) g/dl Hct 29.1 L (37.0-47.0) % Plt Count 126 L (130-400) K/uL BMP 07/13/24 06:43 Sodium 139 Potassium 3.7 Chloride 110 H Carbon Dioxide 28 BUN 3 L Creatinine 0.49 L Glucose 78 Calcium 7.5 L Liver Function 07/13/24 Range/Units 06:43 Total Bilirubin 0.2 (0.2-1.0) mg/dl AST 17 (13-39) U/L ALT 11 (7-52) U/L Alkaline Phosphatase 81 (34-104) U/L Albumin 2.5 L (3.4-5.0) gm/dl Medications Administered Current Inpatient Medications Acetaminophen (Acetaminophen 500 Mg Tab) 500 mg PO Q6H PRN PRN Reason: pain/fever Stop: 08/11/24 10:07 Last Admin: 07/13/24 03:30 Dose: 500 mg Cyanocobalamin (Cyanocobalamin (B-12) 500 Mcg Tablet) 1,000 mcg PO DAILY АННА Stop: 08/11/24 08:59 Last Admin: 07/13/24 08:50 Dose: 1,000 mcg Ferrous Sulfate (Ferrous Sulfate 325 Mg Tab) 325 mg PO HS АННА Stop: 08/11/24 20:59 Last Admin: 07/12/24 21:23 Dose: 325 mg Ceftriaxone Sodium (Rocephin) 2,000 mg in 50 mls @ 100 mls/hr IV Q24H АННА Stop: 07/18/24 02:59 Last Infusion: 07/13/24 04:23 Dose: Infused Ondansetron HCl (Ondansetron Inj 2 Mg/Ml 2 Ml Vial) 4 mg IV Q6H PRN PRN Reason: Nausea Stop: 08/11/24 05:52 Last Admin: 07/12/24 17:20 Dose: 4 mg Prenat Multivit/Urban Planning Teacher/Iron/Folic Ac ( Vitamin 1 Tab) 1 tab PO DAILY АННА Stop: 08/11/24 08:59 Last Admin: 07/13/24 08:50 Dose: 1 tab (1) UTI (urinary tract infection) Hematuria presence: without hematuria Urinary tract infection type: site unspecified Qualified Code(s): N39.0 - Urinary tract infection, site not specified
[2024-07-13 07:32] LABS: Basophils # (auto) 0.03 K/uL (0.00-0.20); Basophils % (auto) 0.4 %; Eosinophils # (auto) 0.02 K/uL (0.00-0.50); Eosinophils % (auto) 0.3 %; Hematocrit (blood only) 29.1 % (37.0-47.0); Hemoglobin 9.3 g/dl (12.0-16.0); Immature Granulocytes % (auto) 1.4 %; Lymphocytes # (auto) 1.26 K/uL (1.20-3.40); Lymphocytes % (auto) 17.8 %; Mean Corpuscular Hemoglobin 27.9 pg (25.0-34.0); Mean Corpuscular Volume 87.4 fL (80.0-100.0); Mean Platelet Volume 12.4 fL (9.4-12.4); Monocytes % (auto) 4.2 %; Neutrophils # (auto) 5.38 K/uL (1.40-6.50); Neutrophils % (auto) 75.9 %; Platelet Count 126 K/uL (130-400); RDW Coefficient of Variation 14.6 % (11.5-14.5); RDW Standard Deviation 46.5 fL (36.4-46.3); Red Blood Count 3.33 M/uL (4.20-5.40); White Blood Count 7.09 K/ul (4.8-10.8)
[2024-07-13 07:49] LABS: Albumin Level 2.5 gm/dl (3.4-5.0); BUN Creatinine Ratio 6.1 (10-20); Bilirubin,Total 0.2 mg/dl (0.2-1.0); Calcium 7.5 mg/dl (8.6-10.3); Creatinine Clr Calc Pharmacy 157.7 ml/min; Globulin 2.4 gm/dl (2.5-4.0); Potassium 3.7 mmol/L (3.5-5.1); Total Protein 4.9 gm/dl (6.0-8.3)
[2024-07-13] MEDS: MICONAZOLE NITRATE PV SCH (20:41)
[2024-07-13] MEDS: HYDROmorphone INJ 0.5 MG/0.5 ML SYR IV PRN (22:11)
[2024-07-14 07:28] VITALS: BP 96/60; PULSE 87; RESP 16; TEMP 98.1; O2SAT 96
[2024-07-14 07:34] LABS: Hematocrit (blood only) 30.2 % (37.0-47.0); Hemoglobin 9.9 g/dl (12.0-16.0); Mean Corpuscular Hemoglobin 28.3 pg (25.0-34.0); Mean Corpuscular Hgb Conc 32.8 g/dL (32.0-36.0); Mean Corpuscular Volume 86.3 fL (80.0-100.0); Mean Platelet Volume 12.3 fL (9.4-12.4); Platelet Count 121 K/uL (130-400); RDW Coefficient of Variation 14.6 % (11.5-14.5); RDW Standard Deviation 45.4 fL (36.4-46.3); White Blood Count 7.05 K/ul (4.8-10.8)
[2024-07-14 07:46] LABS: Albumin Level 2.5 gm/dl (3.4-5.0); BUN Creatinine Ratio 7.3 (10-20); Bilirubin,Total 0.2 mg/dl (0.2-1.0); Calcium 7.6 mg/dl (8.6-10.3); Creatinine Clr Calc Pharmacy 188.4 ml/min; Globulin 2.5 gm/dl (2.5-4.0); Magnesium 1.5 mg/dl (1.7-2.4); Potassium 3.7 mmol/L (3.5-5.1)
--- NOTE | 2024-07-14 07:57 | Hospitalist Progress Note ---
Date of Service July 14, 2024 Assessment & Plan (1) UTI (urinary tract infection): Plan: 28-year-old female 29-week comes because of nausea, fever and right flank pain. Patient having symptoms of nausea and right flank pain and fever since Sunday. She went to [facility] and was found to have pyelonephritis and received dose of IV antibiotic and discharged home on p.o. cefpodoxime. At [facility] ultrasound showed fetus probably mild polyhydramnios at 29 cm. [facility] on 07/10/2024 and has a plan to repeat ultrasound next week. And was advised to go to ER again if the symptoms does not improve. Patient was still having low-grade temperature and nausea and having right flank pain and came to the ER today. Somewhat constipated. Not micturating much at home but in the ER after fluids she was ab le to micturate. Has some pain with micturition. Denies any chest pain or shortness of breath. No cough. No headache. No runny nose. Hemodynamics are okay. #UTI #Right flank pain and nausea and fever #Probable pyelonephritis admitted to med/surg reviewed urine culture which is attached above document > 100k Staph Epidermis Renal US: unremarkable urine cultures: re incubating; BC NGTD, pt also reports NGTD from as well continue Rocephin D/C IVF as pt now tolerating diet. Tylenol for pain #Probable yeast infection Discussed with FUNCTIONAL TESTER TYPEWRITERS for tx who recommends vaginal miconazole at HS 29-week Question of mild polyhydramnios Continue vitamins FUNCTIONAL TESTER TYPEWRITERS consult daily NSTS, d/c on oral antibiotics once pain improved #Anemia in setting of hgb 9.4, 11.2 on admission, likely dilutional monitor h/h , continue hgb #Hypokalemia #Hypomagnesemia replace DVT prophylaxis SCDs Disposition Medical floor, anticipate discharge tomorrow, will need close OP follow up with FUNCTIONAL TESTER TYPEWRITERS Full code. Pt was seen and examined in collaboration with Dr. Marcelo, please see addendum I spent a total of 46 minutes coordinating, documenting and providing care for this patient excluding time spent in the performance of separately billed services or time spent by another provider/QHP. Admission and Anticipated Discharge Date Admission Date: July 12, 2024 Results & Data Results & Data Vital Signs (Past 12 Hours) Vital Signs Temp Pulse Resp BP Pulse Ox O2 Del Method 07/14/24 07:27 36.7 C 87 16 96/60 L 96 Room Air 07/14/24 06:32 36.8 C 72 14 105/78 98 Room Air 07/13/24 20:00 36.9 C 92 H 16 97/61 L 96 Room Air (1) UTI (urinary tract infection) Hematuria presence: without hematuria Urinary tract infection type: site unspecified Qualified Code(s): N39.0 - Urinary tract infection, site not specified
[2024-07-14 08:24] LABS: Basophils # (auto) 0.01 K/uL (0.00-0.20); Basophils % (auto) 0.1 %; Eosinophils # (auto) 0.03 K/uL (0.00-0.50); Eosinophils % (auto) 0.4 %; Immature Granulocytes # (auto) 0.09 K/uL (0.01-0.20); Immature Granulocytes % (auto) 1.3 %; Lymphocytes # (auto) 1.62 K/uL (1.20-3.40); Monocytes # (auto) 0.31 K/uL (0.11-0.59); Monocytes % (auto) 4.4 %; Neutrophils # (auto) 4.99 K/uL (1.40-6.50); Neutrophils % (auto) 70.8 %
[2024-07-14] MEDS: MAGNESIUM SULFATE / D5W 1 GM/100 ML BAG IV ONE (08:51)
--- NOTE | 2024-07-14 10:35 | Discharge Summary ---
Discharge Summary Date of Service July 14, 2024 Principal Dx & Hospital Course #1 = Principal Diagnosis (1) Pyelonephritis: (2) : (3) Acute right flank pain: (4) Yeast infection: Plan This is a 28-year-old female 29-week comes because of nausea, fever and right flank pain and was found to have pyelonephritis. Patient was recently seen at [facility] and treated with 1 IV dose of abx and discharged home on oral cefpodoxime. Of note, while in their ER, ultrasound showed fetus probable mild polyhydramnios at 29 cm. Continued to have symptoms at home so presented to [facility] ED for further evaluation and treatment. Reviewed PH urine culture which is attached above document > 100k Staph Epidermis. Renal US: unremarkable. Urine culture here grew edgar albicans. Discussed tx for yeast infection with obgyn while admitted, who recommended vaginal miconazole HS. Symptoms improving, pain controlled with PRN tylenol. No dysuria. Ambulating and able to shower on her own. Hemodynamically stable and comfortable for discharge home. Discharging on Cephalexin for completion of antibiotic course and 3 additional doses of Miconazole suppository HS. Follow up with obgyn on 07/17. Notes For Next Care Provider pyelonephritis in 29 wk patient, f/u with obgyn on 07/17 Medication Changes From Visit Continue cephalexin for completion of antibiotic course, Miconazole suppository HS per OBGYN Admission HPI Per Admitting Provider 28-year-old female 29-week comes because of nausea, fever and right flank pain. Patient having symptoms of nausea and right flank pain and fever since Sunday. She went to [facility] and was found to have pyelonephritis and received dose of IV antibiotic and discharged home on p.o. cefpodoxime. At [place] ER ultrasound showed fetus probably mild polyhydramnios at 29 cm. Patient followed with [facility] [employer] [facility] on 07/10/2024 and has a plan to repeat ultrasound next week. And was advised to go to ER again if the symptoms does not improve. Patient was still having low-grade temperature and nausea and having right flank pain and came to the ER today. Somewhat constipated. Not micturating much at home but in the ER after fluids she was able to micturate. Has some pain with micturition. Denies any chest pain or shortness of breath. No cough. No headache. No runny nose. Hemodynamics are okay. Past medical history as mentioned above Past surgical history. Dental surgery. Appendectomy. Tonsillectomy. Social history. Smokes half pack a day. Alcohol occasional not since . No drug use. Family history. Mother has bipolar disorder. Father has diabetes. Hypertension. Admission Exam Per Admitting Provider General- Not in distress Head- atraumatic Eyes- PERRL. ENT- oropharynx clear Neck- supple, no JVD. Lungs- clear to auscultation no wheezing or crackles Heart- regular rhythm; no murmur, no gallop. Abdomen- normal bowel sounds, soft, nontender. Extremities- no pretibial edema, no erythema seen Neuro- alert, oriented PERRL, no facial palsy; no dysarthria; moves extremities Discharge Exam Gen: WD/WN, NAD, sitting upright in bed, A&Ox3 HEENT: Normocephalic, atraumatic, mucous membranes moist Lung: Clear to Auscultation bilaterally Heart: Regular rate, regular rhythm Abdomen: Soft, NT, ND +BS x 4 : R CVA and flank TTP improved Extremities: no edema Skin: Warm, no rash Updated Medication List Medication Instructions Recorded Confirmed Type cyanocobalamin (vitamin B-12) 1,000 mcg PO DAILY 07/12/24 07/12/24 History 1,000 mcg tablet ferrous sulfate 325 mg (65 mg 325 mg PO DAILY 07/12/24 07/12/24 History iron) tablet,delayed release ondansetron HCl 4 mg tablet 4 mg PO UD PRN Nausea 07/12/24 07/12/24 History vit no.95-ferrous 1 tab PO DAILY 07/12/24 07/12/24 History fumarate 28 mg-folic acid 800 mcg tablet () cephalexin 500 mg capsule 500 mg PO Q6H 10 days #40 caps 07/14/24 Rx miconazole nitrate 200 mg vaginal 200 mg vaginal HS #3 ea 07/14/24 Rx suppository (Miconazole-3) Hospital Stay Data Consultations 07/12/24 03:54 ED Decision to Admit Stat 07/12/24 08:00 Consult Obstetrics Routine Diagnostic Imagining Performed 07/12/24 00:24 US Renal Bladder [US renal/blad retro comp] Stat Pending Results Patient Have Any Pending Studies at Discharge: No Discharge Instructions Given to Patient (Per Discharging Provider) Patient admitted for pyelonephritis Continue cephalexin for completion of antibiotic course. Continue Miconazole vaginal suppository HS per for next 3 days - discuss continuation of dose with obgyn if symptoms persist Tylenol PRN for infection-associated pain Follow up with OBGYN scheduled for 07/17 OTHER INSTRUCTIONS: Seek medical attention if you have: * temperature above 101 * chest pain or trouble breathing * abdominal pain, nausea, vomiting * diarrhea, dark stools or bloody stools * any unanswered questions or concerns Call 911 if symptoms are severe. Please take good care of yourself. Call if you have any questions or problems. You can reach a [facility] hospitalist on duty at [facility] 24 hours a day by calling [phone]. Total Time Total Time Spent Total Time Spent (In Minutes): 40 Supervising Physician Co-Signing Physician Notes Patient reported significant improvement in her flank pain. She reports that the dysuria, urgency and frequency has also decreased. She has been afebrile for last 48 hours. Plan to switch over to p.o. antibiotic for 10 more days to complete the course. I have reviewed the advanced practitioner's documentation, and I agree with, and take responsibility for the plan of care I spent a total of 20 minutes coordinating, documenting, and providing care for this patient excluding time spent in the performance of separately billed services. All of the aforementioned completed while collaborating with the assigned advanced practitioner for a full treatment plan
== END 2024-07-14 11:28 | disposition home or self-care (01) | DRG 832 ==
LOC: ED 23:59 → EDINP 07-12 04:28 → 3N 07-12 05:04

== ENCOUNTER 2024-10-01 07:40 | Inpatient (IN) ==
[2024-10-01] MEDS ORDERED: OXYTOCIN 30 UNITS/NSS 30 UNITS/500 ML BAG IV PRN (07:55)
[2024-10-01] MEDS ORDERED: LIDOCAINE 1% LOCAL 20 ML VIAL INFIL PRN (07:55)
[2024-10-01 08:36] LABS: Hematocrit (blood only) 37.3 % (37.0-47.0); Hemoglobin 12.4 g/dl (12.0-16.0); Mean Corpuscular Hemoglobin 29.3 pg (25.0-34.0); Mean Corpuscular Volume 88.2 fL (80.0-100.0); Platelet Count 195 K/uL (130-400); RDW Standard Deviation 61.9 fL (36.4-46.3); Red Blood Count 4.23 M/uL (4.20-5.40); White Blood Count 12.71 K/ul (4.8-10.8)
--- NOTE | 2024-10-01 09:46 | History & Physical Report ---
Date of Service October 01, 2024 Assessment & Plan (1) Post-dates : Plan: cervical ripening with Cervidil Admission and Anticipated Discharge Date Admission Date: October 01, 2024 History of Present Illness Chief Complaint: induction of labor for post-dates Primary Care Provider: Álvaro Martínez PA-C 28-year-old female presents to labor and delivery for induction of labor for postdates at 40.5 weeks she is GBS positive and she has a history of herpes and was on Valtrex during the . Allergies Allergy/AdvReac Type Severity Reaction Status Date / Time latex Allergy Hives Verified 10/01/24 08:57 cranberry AdvReac Rash Verified 10/01/24 08:58 raspberry AdvReac Rash Verified 10/01/24 08:58 Home Medications Medication Instructions Recorded Confirmed Type cyanocobalamin (vitamin B-12) 1,000 mcg PO DAILY 07/12/24 10/01/24 History 1,000 mcg tablet vits no.124-ferrous fum 1 tab PO DAILY 10/01/24 10/01/24 History 27 mg iron-folic acid 800 mcg tablet ( Vitamin) valacyclovir 500 mg tablet 500 mg PO BID 10/01/24 10/01/24 History (Valtrex) Patient History Social History Smoking Status: Former smoker Tobacco Type: Cigarettes Cigarettes Per Day: 3; Second Hand Exposure: Yes; Do You Dip or Chew Tobacco: No; Tobacco Cessation Education Requested by Patient: No Hx Alcohol Use: No Hx Substance Use: No Preferred Language: [place] Communication Ability: Effective Health Care Aide Required: No Beliefs That Will Affect Care: None marital status: Life Partner Current Living Situation: Significant Other Current Living Situation Comment: [place], 2 dogs, 1 cat Other Information That Helps Us Care for You: No Feels Safe at Home: Yes Safety Concerns: Feels Safe At This Time Assistive Devices: None OB History primip [employer]ER History herpes Review of Systems All systems reviewed & are unremarkable except as noted in HPI & below Physical Exam Constitutional: WD/WN, vitals as above Eyes: PERRL, conjunctivae normal, anicteric sclerae Respiratory: normal respiratory effort Cardiovascular: Rate/Rhythm: regular rate and regular rhythm Gastrointestinal (Abdomen): Inspection/Auscultation: abdomen normal to inspection Musculoskeletal: Extremities: extremities normal to inspection Skin: no rashes, warm and dry Neurologic: patellar DTR's 2+ bilat, sensation intact Psychiatric: A+Ox3, euthymic affect Genitourinary: no vaginal lesions, no adnexal mass Manual OB Exam: + cervical dilation fingertip, + cervical effacement 50% and + station high cervix firm/posterior Cervidil 10 mg placed vaginally Results & Data Vital Signs (Past 12 Hours) Vital Signs Temp Pulse BP 10/01/24 08:24 93 H 114/70 10/01/24 08:03 36.9 C Laboratory Results 10/01/24 08:05 WBC 12.71 H RBC 4.23 Hgb 12.4 Hct 37.3 MCV 88.2 MCH 29.3 MCHC 33.2 RDW Std Deviation 61.9 H RDW Coeff of Gwendolyn 19.4 H Plt Count 195 MPV 12.4 Code Status & VTE Plan VTE Prophylaxis Plan VTE Prophylaxis will be ordered: No Monitoring External Monitor Cat 1 (1) Post-dates Post-term type: 40-42 weeks gestation Qualified Code(s): O48.0 - Post-term
[2024-10-01] MEDS: DINOPROSTONE 10 MG INSERT PV ONE (09:58)
[2024-10-01] MEDS: FAMOTIDINE 20 MG TAB PO SCH (21:20)
[2024-10-02] MEDS: miSOPROStoL 50 MCG TAB PO SCH
[2024-10-02] MEDS: BUTORPHANOL TARTRATE 1 MG/ML VIAL IV PRN (03:11)
[2024-10-02] MEDS: LACTATED RINGER'S 1,000 ML IV PRN (03:16)
[2024-10-02] MEDS: PENICILLIN GK 6 MU in DEXTROSE 5% 250 ML IV STA (03:18)
[2024-10-02] MEDS: ONDANSETRON INJ 2 MG/ML 2 ML VIAL IV PRN ×2 (03:55→13:43)
[2024-10-02] MEDS: PENICILLIN GK 3 MU in DEXTROSE 5% 100 ML IV PRN (07:50)
--- NOTE | 2024-10-02 09:02 | Obstetrical Progress Note ---
Date of Service October 02, 2024 Assessment & Plan Admission and Anticipated Discharge Date Admission Date: October 01, 2024 Subjective Patient seen and examined by myself. She was admitted yesterday by Dr. Caballero for induction of labor for postdates, she received Cervidil for cervical ripening, which was removed around 10 PM and then received a single dose of p.o. Cytotec at midnight. She has been feeling regular painful contractions since then. She does not plan to get epidural so she asked for IV Stadol and she has taken 3 times. Last dose was 7:15 AM. heart rate had been category 1 with baseline of 120s with accelerations and moderate variability since yesterday. Since last dose of Stadol baseline decreased to 100s to 110s still has good variability, and accelerations. I checked her cervix which is 4 cm, 10 to 80%, with a tight bulging bag head at -2 station. She is GBS positive and getting second dose of penicillin at this moment. scalp stimulation caused heart rate accelerations to 120. her has been complicated by Pyelonephritis during this . Treated with IV and PO AB and recovered. h/o genital herpes around 34 weeks, was treated with Valtrex for 10 days, now she has been on Valtrex since then. She denies any symptoms including lesion, blisters, burning or pain. Her exam by myself is negative no lesions found. We discussed about pain management during labor including limitation of IV pain medications and versus epidural. Patient wants to think about it. All questions were answered, Continue to monitor closely. Results & Data Vital Signs (Past 12 Hours) Vital Signs Temp Pulse Resp BP Pulse Ox O2 Del Method 10/02/24 08:54 61 100 10/02/24 08:51 76 124/87 10/02/24 08:49 68 100 10/02/24 08:44 64 97 10/02/24 08:41 79 89 L 10/02/24 08:39 78 97 10/02/24 08:34 89 97 10/02/24 08:30 70 113/60 10/02/24 08:29 75 100 10/02/24 08:24 74 98 10/02/24 08:19 97 10/02/24 08:19 89 10/02/24 08:19 90 94 10/02/24 08:14 65 97 10/02/24 08:09 93 H 92 10/02/24 08:05 70 91 10/02/24 08:04 69 94 10/02/24 07:59 73 98 10/02/24 07:54 74 98 10/02/24 07:49 71 99 10/02/24 07:35 Room Air 10/02/24 07:35 20 10/02/24 07:35 36.9 C 68 20 116/70 10/02/24 03:19 36.5 C 73 20 113/62 10/01/24 23:41 36.5 C 76 18 94/50 L
[2024-10-02] MEDS: TERBUTALINE SULFATE 1 MG/ML VIAL SQ ONE (10:12)
[2024-10-02] MEDS ORDERED: NALBUPHINE HCL INJ 10 MG/ML AMP IV PRN (10:14)
[2024-10-02] MEDS ORDERED: diphenhydrAMINE 50 MG/ML VIAL IV PRN (10:14)
[2024-10-02] MEDS ORDERED: ROPIVACAINE 0.5% PF 5 MG/ML 20 ML VIAL EPI PRN (10:14)
[2024-10-02] MEDS ORDERED: BUPIVACAINE 0.25% PF 30 ML VIAL EPI PRN (10:14)
[2024-10-02] MEDS ORDERED: SODIUM CHLORIDE 0.9% PF INJ 10 ML VIAL EPI PRN (10:14)
[2024-10-02] MEDS ORDERED: LIDOCAINE 2% MPF LOCAL 5 ML VIAL EPI PRN (10:14)
[2024-10-02] MEDS ORDERED: NALOXONE HCL 1 MG in SODIUM CHLORIDE 0.9% 1,000 ML IV PRN (10:14)
[2024-10-02] MEDS ORDERED: NALOXONE HCL 0.4 MG/1 ML VIAL/CARP IV PRN (10:14)
--- NOTE | 2024-10-02 10:18 | Anesthesiology Consultation ---
Date of Service October 02, 2024 Assessment & Plan (1) Encounter for pre-operative examination: Chart Review Chart Review: Patient NOT seen in Pre Admission Testing and Acceptable Risk for Labor Epidural Consults Requested none History Height/Weight Height: 5 ft 1 in Weight: 63.957 kg Allergies Allergy/AdvReac Type Severity Reaction Status Date / Time latex Allergy Hives Verified 10/01/24 08:57 cranberry AdvReac Rash Verified 10/01/24 08:58 raspberry AdvReac Rash Verified 10/01/24 08:58 Medications Home Medications Medication Instructions Recorded Confirmed Last Taken cyanocobalamin (vitamin B-12) 1,000 mcg PO DAILY 07/12/24 10/01/24 09/29/24 1,000 mcg tablet vits no.124-ferrous fum 1 tab PO DAILY 10/01/24 10/01/24 2 Days Ago 27 mg iron-folic acid 800 mcg ~09/29/24 tablet ( Vitamin) valacyclovir 500 mg tablet 500 mg PO BID 10/01/24 10/01/24 10/01/24 (Valtrex) Active Medications Generic Name Dose Route Start Last Admin Trade Name Freq PRN Reason Stop Dose Admin Famotidine 20 mg 10/01/24 21:15 10/01/24 21:20 Famotidine 20 Mg Tab PO 10/31/24 21:14 20 mg PRN АННА Administration Lactated Ringer's 1,000 mls @ 125 mls/hr 10/01/24 07:55 10/02/24 09:13 Lr IV 10/03/24 07:54 150 mls/hr .Q8H PRN Infusion L&D Protocol Protocol Penicillin G Potassium 3 mu/ 106 mls @ 100 mls/hr 10/01/24 12:41 10/02/24 07:50 Dextrose IV 10/11/24 12:40 100 mls/hr Q4H PRN Administration GBS(+) Until Delivery Misoprostol 50 mcg 10/02/24 00:00 10/02/24 00:00 Misoprostol 50 Mcg Tab PO 11/01/24 00:00 50 mcg Q4 АННА Administration Ondansetron HCl 4 mg 10/02/24 03:46 10/02/24 03:55 Ondansetron Inj 2 Mg/Ml 2 Ml Vial IV 11/01/24 03:45 4 mg Q4H PRN Administration Nausea Past Surgical History Surgical History (Updated 10/01/24 @ 14:52 by Mackenzie Camacho RN) Hx of LASIK Hx of tonsillectomy [place] teeth extracted Hx of appendectomy Social History Smoking Status: Former smoker Smoking cigarettes per day: 3 Do You Dip or Chew Tobacco: No Hx Alcohol Use: No Hx Substance Use: No substance use type: does not use Physical Exam Vital Signs Last Vital Signs Temp 98.4 F 10/02/24 09:00 Pulse 75 10/02/24 10:11 Resp 18 10/02/24 09:00 BP 126/82 10/02/24 09:50 Pulse Ox 98 10/02/24 10:11 O2 Del Method Room Air 10/02/24 07:35 Testing Laboratory Results 10/01/24 08:05
--- NOTE | 2024-10-02 10:29 | Obstetrical Progress Note ---
Date of Service October 02, 2024 Assessment & Plan Admission and Anticipated Discharge Date Admission Date: October 01, 2024 Subjective Patient is much more painful. VE: 6/ 90%/ -2, bulging bag, she wants epidural this time FHR had been categ I, baseline is back to 100's again, moderate variability, no decels [place] ctxs q 1-2 min Terbutaline is given, FHR up to 120''s-130's with good variability Continue to monitor closely Dr Clark at bed site for epidural Results & Data Vital Signs (Past 12 Hours) Vital Signs Temp Pulse Resp BP Pulse Ox O2 Del Method 10/02/24 10:20 125 H 97 10/02/24 10:11 75 98 10/02/24 10:06 96 10/02/24 10:06 85 10/02/24 10:06 86 92 10/02/24 10:01 73 90 10/02/24 10:00 69 93 10/02/24 09:56 80 97 10/02/24 09:51 100 10/02/24 09:51 76 10/02/24 09:51 76 93 10/02/24 09:50 76 126/82 10/02/24 09:46 77 100 10/02/24 09:41 91 H 98 10/02/24 09:36 69 100 10/02/24 09:31 78 100 10/02/24 09:27 65 93 10/02/24 09:26 60 97 10/02/24 09:24 63 113/67 10/02/24 09:22 62 93 10/02/24 09:21 66 99 10/02/24 09:14 74 100 10/02/24 09:11 70 93 10/02/24 09:09 73 100 10/02/24 09:04 77 100 10/02/24 09:00 18 10/02/24 09:00 36.9 C 18 10/02/24 08:59 70 100 10/02/24 08:54 61 100 10/02/24 08:51 76 124/87 10/02/24 08:49 68 100 10/02/24 08:44 64 97 10/02/24 08:41 79 89 L 10/02/24 08:39 78 97 10/02/24 08:34 89 97 10/02/24 08:30 70 113/60 10/02/24 08:29 75 100 10/02/24 08:24 74 98 10/02/24 08:19 97 10/02/24 08:19 89 10/02/24 08:19 90 94 10/02/24 08:14 65 97 10/02/24 08:09 93 H 92 10/02/24 08:05 70 91 10/02/24 08:04 69 94 10/02/24 07:59 73 98 10/02/24 07:54 74 98 10/02/24 07:49 71 99 10/02/24 07:35 Room Air 10/02/24 07:35 20 10/02/24 07:35 36.9 C 68 20 116/70 10/02/24 03:19 36.5 C 73 20 113/62 10/01/24 23:41 36.5 C 76 18 94/50 L
[2024-10-02] MEDS: BUPIVACAINE 0.25% PF 30 ML VIAL ONE (10:39)
[2024-10-02] MEDS: LIDOCAINE 2%/EPINEPHRINE 1:200,000 20 ML PF ONE (10:39)
[2024-10-02] MEDS: fentANYL 2 MCG/ML BUPIVacaine 0.125%-NSS 100ML BAG ONE (10:43)
[2024-10-02] MEDS: CYANOCOBALAMIN (B-12) 500 MCG TABLET PO SCH (10:45)
[2024-10-02] MEDS: PRENATAL VITAMIN 1 TAB PO SCH (10:45)
[2024-10-02] MEDS: BUPIVACAINE 0.25% PF 30 ML VIAL EPI STA (10:46)
[2024-10-02] MEDS: LIDOCAINE 2%/EPINEPHRINE 1:200,000 20 ML PF EPI STA (10:46)
--- NOTE | 2024-10-02 13:19 | Obstetrical Progress Note ---
Date of Service October 02, 2024 Assessment & Plan Admission and Anticipated Discharge Date Admission Date: October 01, 2024 Subjective Patient has received epidural. Comfortable now. Could not sleep but she rested. heart rate category 1, baseline has increased to 120s with good accelerations and moderate variability, no decelerations, Contractions spaced out, Cervix is 6 cm dilated, 80% effaced, head is -2, no bulging bag, AROM small amount of clear fluid was obtained, Continue monitor closely, Augment with low-dose Pitocin per protocol. Results & Data Vital Signs (Past 12 Hours) Vital Signs Temp Pulse Resp BP Pulse Ox O2 Del Method 10/02/24 13:15 100 H 98 10/02/24 13:10 107 H 104/57 L 96 10/02/24 13:05 109 H 96 10/02/24 13:00 101 H 99/50 L 95 10/02/24 12:55 96 10/02/24 12:55 109 H 10/02/24 12:55 110 H 89/51 L 10/02/24 12:50 104 H 94 10/02/24 12:45 104 H 94 10/02/24 12:41 99 H 101/52 L 10/02/24 12:40 101 H 95 10/02/24 12:35 100 H 94 10/02/24 12:30 102 H 18 95 10/02/24 12:25 102 H 91/56 L 95 10/02/24 12:20 112 H 94 10/02/24 12:15 106 H 94 10/02/24 12:10 92 10/02/24 12:10 106 H 10/02/24 12:10 100 H 102/57 L 10/02/24 12:05 106 H 94 10/02/24 12:00 112 H 16 95 10/02/24 11:57 113 H 92 10/02/24 11:55 112 H 112/54 L 91 10/02/24 11:50 111 H 92 10/02/24 11:45 117 H 94 10/02/24 11:44 114 H 94 10/02/24 11:40 113 H 120/58 L 91 10/02/24 11:36 109 H 94 10/02/24 11:35 117 H 92 10/02/24 11:32 37.1 C 10/02/24 11:30 94 10/02/24 11:30 121 H 10/02/24 11:30 118 H 94 10/02/24 11:25 122 H 98 10/02/24 11:20 122 H 97 10/02/24 11:15 123 H 97 10/02/24 11:10 99 10/02/24 11:10 116 H 10/02/24 11:10 121 H 102/56 L 10/02/24 11:05 98 10/02/24 11:05 122 H 10/02/24 11:05 121 H 115/52 L 10/02/24 11:00 124 H 98 10/02/24 10:58 130 H 112/55 L 10/02/24 10:57 130 H 123/59 L 10/02/24 10:55 132 H 98 10/02/24 10:52 134 H 121/56 L 10/02/24 10:50 132 H 98 10/02/24 10:48 130 H 110/52 L 10/02/24 10:47 139 H 117/51 L 10/02/24 10:45 140 H 97 10/02/24 10:40 147 H 97 10/02/24 10:38 142 H 129/58 L 10/02/24 10:35 97 10/02/24 10:35 134 H 10/02/24 10:35 165/71 H 10/02/24 10:35 136 H 203/81 H 93 10/02/24 10:32 130 H 134/89 10/02/24 10:30 149 H 93 10/02/24 10:29 142 H 93 10/02/24 10:25 138 H 98 10/02/24 10:20 125 H 97 10/02/24 10:11 75 98 10/02/24 10:06 96 10/02/24 10:06 85 10/02/24 10:06 86 92 10/02/24 10:01 73 90 10/02/24 10:00 69 93 10/02/24 09:56 80 97 10/02/24 09:51 100 10/02/24 09:51 76 10/02/24 09:51 76 93 10/02/24 09:50 76 126/82 10/02/24 09:46 77 100 10/02/24 09:41 91 H 98 10/02/24 09:36 69 100 10/02/24 09:31 78 100 10/02/24 09:30 18 10/02/24 09:30 18 10/02/24 09:27 65 93 10/02/24 09:26 60 97 10/02/24 09:24 63 113/67 10/02/24 09:22 62 93 10/02/24 09:21 66 99 10/02/24 09:14 74 100 10/02/24 09:11 70 93 10/02/24 09:09 73 100 10/02/24 09:04 77 100 10/02/24 09:00 18 10/02/24 09:00 36.9 C 18 10/02/24 08:59 70 100 10/02/24 08:54 61 100 10/02/24 08:51 76 124/87 10/02/24 08:49 68 100 10/02/24 08:44 64 97 10/02/24 08:41 79 89 L 10/02/24 08:39 78 97 10/02/24 08:34 89 97 10/02/24 08:30 70 113/60 10/02/24 08:29 75 100 10/02/24 08:24 74 98 10/02/24 08:19 97 10/02/24 08:19 89 10/02/24 08:19 90 94 10/02/24 08:14 65 97 10/02/24 08:09 93 H 92 10/02/24 08:05 70 91 10/02/24 08:04 69 94 10/02/24 07:59 73 98 10/02/24 07:54 74 98 10/02/24 07:49 71 99 10/02/24 07:35 Room Air 10/02/24 07:35 20 10/02/24 07:35 36.9 C 68 20 116/70 10/02/24 03:19 36.5 C 73 20 113/62
[2024-10-02] MEDS: OXYTOCIN 30 UNITS/NSS 30 UNITS/500 ML BAG IV PRN (13:35)
[2024-10-02] MEDS: SODIUM CHLORIDE 0.9% PF INJ 10 ML VIAL EPI STA (16:52)
[2024-10-02] MEDS: fentANYL 2 MCG/ML BUPIVacaine 0.125%-NSS 100ML BAG EPI PRN (17:45)
--- NOTE | 2024-10-02 18:04 | Obstetrical Progress Note ---
Date of Service October 02, 2024 Assessment & Plan Admission and Anticipated Discharge Date Admission Date: October 01, 2024 Subjective Late entry from 15:45 Patient is reevaluated VSS Afebrile FHR categ I VE: 6/ 80%/ head much lower 0 to +1 station Bed side US OP, placenta anterior Continue to monitor closely. Results & Data Vital Signs (Past 12 Hours) Vital Signs Temp Pulse Resp BP Pulse Ox O2 Del Method 10/02/24 18:01 87 98 10/02/24 17:56 82 96 10/02/24 17:55 93 H 136/63 10/02/24 17:54 92 H 90 10/02/24 17:51 89 97 10/02/24 17:46 92 H 99 10/02/24 17:41 96 10/02/24 17:41 94 H 10/02/24 17:41 91 H 114/74 10/02/24 17:37 79 86 L 10/02/24 17:36 77 100 10/02/24 17:31 91 H 100 10/02/24 17:30 91 H 123/59 L 10/02/24 17:28 92 H 89 L 10/02/24 17:26 93 H 100 10/02/24 17:22 101 H 90 10/02/24 17:21 100 H 94 10/02/24 17:16 100 10/02/24 17:16 97 H 10/02/24 17:16 93 H 91 10/02/24 17:11 86 100 10/02/24 17:06 75 98 10/02/24 17:01 81 99 10/02/24 16:56 98 10/02/24 16:56 75 10/02/24 16:56 74 87/52 L 10/02/24 16:51 78 97 10/02/24 16:46 78 96 10/02/24 16:41 97 10/02/24 16:41 77 10/02/24 16:41 103/57 L 10/02/24 16:41 92 H 106/62 10/02/24 16:36 91 H 96 10/02/24 16:31 108 H 93 10/02/24 16:26 106 H 95 10/02/24 16:25 121 H 108/67 10/02/24 16:21 83 L 10/02/24 16:21 118 H 10/02/24 16:21 119 H 85 L 10/02/24 16:16 103 H 93 10/02/24 16:11 93 H 114/67 88 L 10/02/24 16:06 119 H 89 L 10/02/24 16:05 113 H 91 10/02/24 16:01 86 98 10/02/24 16:00 18 10/02/24 16:00 18 10/02/24 15:56 78 99 10/02/24 15:55 75 116/67 10/02/24 15:51 80 97 10/02/24 15:45 87 96 10/02/24 15:40 95 H 130/62 94 10/02/24 15:35 92 H 94 10/02/24 15:30 88 98 10/02/24 15:26 95 H 119/74 10/02/24 15:25 100 H 96 10/02/24 15:22 16 10/02/24 15:22 36.9 C 16 10/02/24 15:20 99 H 94 10/02/24 15:15 99 H 95 10/02/24 15:10 94 10/02/24 15:10 95 H 10/02/24 15:10 93 H 107/62 10/02/24 15:05 95 H 96 10/02/24 15:00 104 H 96 10/02/24 14:55 102 H 107/64 96 10/02/24 14:50 102 H 95 10/02/24 14:45 99 H 95 10/02/24 14:41 98 H 119/70 10/02/24 14:40 99 H 96 10/02/24 14:35 102 H 95 10/02/24 14:32 18 10/02/24 14:32 18 10/02/24 14:30 93 H 95 10/02/24 14:25 98 H 115/61 95 10/02/24 14:20 98 H 96 10/02/24 14:15 93 H 95 10/02/24 14:11 100 H 111/68 10/02/24 14:10 92 H 96 10/02/24 14:05 97 H 96 10/02/24 14:00 115 H 95 10/02/24 13:56 105 H 125/72 10/02/24 13:55 106 H 94 10/02/24 13:50 105 H 94 10/02/24 13:45 114 H 95 10/02/24 13:41 112 H 123/72 10/02/24 13:40 107 H 95 10/02/24 13:35 110 H 95 10/02/24 13:30 111 H 96 10/02/24 13:26 115 H 119/79 10/02/24 13:25 114 H 96 10/02/24 13:20 36.9 C 113 H 18 97 10/02/24 13:15 100 H 98 10/02/24 13:10 107 H 104/57 L 96 10/02/24 13:05 109 H 96 10/02/24 13:00 101 H 99/50 L 95 10/02/24 12:55 96 10/02/24 12:55 109 H 10/02/24 12:55 110 H 89/51 L 10/02/24 12:50 104 H 94 10/02/24 12:45 104 H 94 10/02/24 12:41 99 H 101/52 L 10/02/24 12:40 101 H 95 10/02/24 12:35 100 H 94 10/02/24 12:30 102 H 18 95 10/02/24 12:25 102 H 91/56 L 95 10/02/24 12:20 112 H 94 10/02/24 12:15 106 H 94 10/02/24 12:10 92 10/02/24 12:10 106 H 10/02/24 12:10 100 H 102/57 L 10/02/24 12:05 106 H 94 10/02/24 12:00 112 H 16 95 10/02/24 11:57 113 H 92 10/02/24 11:55 112 H 112/54 L 91 10/02/24 11:50 111 H 92 10/02/24 11:45 117 H 94 10/02/24 11:44 114 H 94 10/02/24 11:40 113 H 120/58 L 91 10/02/24 11:36 109 H 94 10/02/24 11:35 117 H 92 10/02/24 11:32 37.1 C 10/02/24 11:30 94 10/02/24 11:30 121 H 10/02/24 11:30 118 H 94 10/02/24 11:25 122 H 98 10/02/24 11:20 122 H 97 10/02/24 11:15 123 H 97 10/02/24 11:10 99 10/02/24 11:10 116 H 10/02/24 11:10 121 H 102/56 L 10/02/24 11:05 98 10/02/24 11:05 122 H 10/02/24 11:05 121 H 115/52 L 10/02/24 11:00 124 H 98 10/02/24 10:58 130 H 112/55 L 10/02/24 10:57 130 H 123/59 L 10/02/24 10:55 132 H 98 10/02/24 10:52 134 H 121/56 L 10/02/24 10:50 132 H 98 10/02/24 10:48 130 H 110/52 L 10/02/24 10:47 139 H 117/51 L 10/02/24 10:45 140 H 97 10/02/24 10:40 147 H 97 10/02/24 10:38 142 H 129/58 L 10/02/24 10:35 97 10/02/24 10:35 134 H 10/02/24 10:35 165/71 H 10/02/24 10:35 136 H 203/81 H 93 10/02/24 10:32 130 H 134/89 10/02/24 10:30 149 H 93 10/02/24 10:29 142 H 93 10/02/24 10:25 138 H 98 10/02/24 10:20 125 H 97 10/02/24 10:11 75 98 10/02/24 10:06 96 10/02/24 10:06 85 10/02/24 10:06 86 92 10/02/24 10:01 73 90 10/02/24 10:00 69 93 10/02/24 09:56 80 97 10/02/24 09:51 100 10/02/24 09:51 76 10/02/24 09:51 76 93 10/02/24 09:50 76 126/82 10/02/24 09:46 77 100 10/02/24 09:41 91 H 98 10/02/24 09:36 69 100 10/02/24 09:31 78 100 10/02/24 09:30 18 10/02/24 09:30 18 10/02/24 09:27 65 93 07/31/25 09:26 60 97 10/02/24 09:24 63 113/67 10/02/24 09:22 62 93 10/02/24 09:21 66 99 10/02/24 09:14 74 100 10/02/24 09:11 70 93 10/02/24 09:09 73 100 10/02/24 09:04 77 100 10/02/24 09:00 18 10/02/24 09:00 36.9 C 18 10/02/24 08:59 70 100 10/02/24 08:54 61 100 10/02/24 08:51 76 124/87 10/02/24 08:49 68 100 10/02/24 08:44 64 97 10/02/24 08:41 79 89 L 10/02/24 08:39 78 97 10/02/24 08:34 89 97 10/02/24 08:30 70 113/60 10/02/24 08:29 75 100 10/02/24 08:24 74 98 10/02/24 08:19 97 10/02/24 08:19 89 10/02/24 08:19 90 94 10/02/24 08:14 65 97 10/02/24 08:09 93 H 92 10/02/24 08:05 70 91 10/02/24 08:04 69 94 10/02/24 07:59 73 98 10/02/24 07:54 74 98 10/02/24 07:49 71 99 10/02/24 07:35 Room Air 10/02/24 07:35 20 10/02/24 07:35 36.9 C 68 20 116/70
[2024-10-02] MEDS ORDERED: NURSING L&D Epidural Breakthrough Pain Update ONE (18:15)
[2024-10-02] MEDS ORDERED: LIDOCAINE 2%/EPINEPHRINE 1:200,000 20 ML PF ONE ×3 (18:32→22:53)
[2024-10-02] MEDS ORDERED: ROPIVACAINE 0.5% 5 MG/ML 30 ML VIAL ONE (18:32)
--- NOTE | 2024-10-02 18:39 | Anesthesia Procedure Note ---
Date of Service October 02, 2024 Anesthesia Epidural Re-Dose Vital Signs Temp Pulse Resp BP Pulse Ox O2 Del Method 36.9 C 84 18 135/88 100 Room Air 10/02/24 15:22 10/02/24 18:31 10/02/24 16:00 10/02/24 18:26 10/02/24 18:31 10/02/24 07:35 Notes Pain Intensity: 0 Dilatation (cm): 9.0 Effacement (%): 90 Called by nursing to evaluate epidural as the patient is having increased pain. The epidural was re-dosed with the following medications (all medications via epidural route) after negative aspiration of the epidural catheter for CSF/HEME 1.2% lidocaine and 0.2% ropivacaine 6ml After Epidural Re-Dose Mental Status: alert / awake / arousable Pain: improving with treatment Airway Patency, RR, SpO2: stable & adequate BP & HR: stable & adequate
--- NOTE | 2024-10-02 21:09 | Obstetrical Progress Note ---
Date of Service October 02, 2024 Assessment & Plan Admission and Anticipated Discharge Date Admission Date: October 01, 2024 Subjective Patient is reevaluated. Epidural was redosed and she is comfortable now. She had tachysystole while Pitocin was decreased to half dose but it persisted. Pitocin was stopped completely. She has been still having contractions every 1 to 2 minutes lasting about a minute. heart rate has been category 1. Cervix is 6 to 7 cm, feels swollen, head and cone-shaped tip is at +1 but the most of it is higher, Patient has received 4 doses of IV penicillin, discussed the findings and prospective labor possible LGA and option of continuing with labor versus primary , Offered her IUPC and adjusted dose of oxytocin, Patient desires IUPC and wait another hour or so, she also desires to deliver today not tomorrow. She has a plan discussed the details with her. Continue monitor closely, All questions were answered. Results & Data Vital Signs (Past 12 Hours) Vital Signs Temp Pulse Resp BP Pulse Ox 10/02/24 21:02 98 10/02/24 21:02 97 H 10/02/24 20:57 98 10/02/24 20:57 95 H 10/02/24 20:52 97 10/02/24 20:52 96 H 10/02/24 20:52 89 10/02/24 20:52 135/73 10/02/24 20:51 86 L 10/02/24 20:51 99 H 10/02/24 20:47 98 10/02/24 20:47 110 H 10/02/24 20:42 96 10/02/24 20:42 92 H 10/02/24 20:39 105 H 10/02/24 20:39 125/84 10/02/24 20:37 99 10/02/24 20:37 100 H 10/02/24 20:32 96 10/02/24 20:32 95 H 10/02/24 20:27 96 10/02/24 20:27 94 H 10/02/24 20:22 96 10/02/24 20:22 88 10/02/24 20:22 87 10/02/24 20:22 127/71 10/02/24 20:17 96 10/02/24 20:17 103 H 10/02/24 20:12 98 10/02/24 20:12 98 H 10/02/24 20:07 99 10/02/24 20:07 104 H 10/02/24 20:06 100 H 10/02/24 20:06 107/59 L 10/02/24 20:02 99 10/02/24 20:02 103 H 10/02/24 19:57 98 10/02/24 19:57 103 H 10/02/24 19:52 99 10/02/24 19:52 103 H 10/02/24 19:47 97 10/02/24 19:47 98 H 10/02/24 19:42 98 10/02/24 19:42 106 H 10/02/24 19:40 106 H 10/02/24 19:40 118/57 L 10/02/24 19:37 99 10/02/24 19:37 99 H 10/02/24 19:32 99 10/02/24 19:32 109 H 10/02/24 19:27 99 10/02/24 19:27 101 H 10/02/24 19:24 96 H 99/56 L 10/02/24 19:22 104 H 99 10/02/24 19:17 120 H 100 10/02/24 19:15 36.9 C 10/02/24 19:12 107 H 100 10/02/24 19:09 109 H 91 10/02/24 19:08 100 H 116/77 10/02/24 19:07 98 H 96 10/02/24 19:03 111 H 122/70 10/02/24 19:02 95 H 94 10/02/24 18:57 95 10/02/24 18:57 94 H 10/02/24 18:57 98 H 120/72 10/02/24 18:53 100 H 85 L 10/02/24 18:52 110 H 126/76 93 10/02/24 18:47 100 H 95 10/02/24 18:46 109 H 124/65 10/02/24 18:44 99 H 122/73 88 L 10/02/24 18:42 86 130/72 97 10/02/24 18:40 88 128/69 10/02/24 18:38 83 127/63 10/02/24 18:37 79 98 10/02/24 18:31 84 100 10/02/24 18:26 97 H 135/88 93 10/02/24 18:21 95 H 97 10/02/24 18:16 85 90 10/02/24 18:12 87 134/74 10/02/24 18:11 96 H 94 10/02/24 18:06 85 95 10/02/24 18:01 87 98 10/02/24 17:56 82 96 10/02/24 17:55 93 H 136/63 10/02/24 17:54 92 H 90 10/02/24 17:51 89 97 10/02/24 17:46 92 H 99 10/02/24 17:41 96 10/02/24 17:41 94 H 10/02/24 17:41 91 H 114/74 10/02/24 17:37 79 86 L 10/02/24 17:36 77 100 10/02/24 17:31 91 H 100 10/02/24 17:30 91 H 123/59 L 10/02/24 17:28 92 H 89 L 10/02/24 17:26 93 H 100 10/02/24 17:22 101 H 90 10/02/24 17:21 100 H 94 10/02/24 17:16 100 10/02/24 17:16 97 H 10/02/24 17:16 93 H 91 10/02/24 17:11 86 100 10/02/24 17:06 75 98 10/02/24 17:01 81 99 10/02/24 16:56 98 10/02/24 16:56 75 10/02/24 16:56 74 87/52 L 10/02/24 16:51 78 97 10/02/24 16:46 78 96 10/02/24 16:41 97 10/02/24 16:41 77 10/02/24 16:41 103/57 L 10/02/24 16:41 92 H 106/62 10/02/24 16:36 91 H 96 10/02/24 16:31 108 H 93 10/02/24 16:26 106 H 95 10/02/24 16:25 121 H 108/67 10/02/24 16:21 83 L 10/02/24 16:21 118 H 10/02/24 16:21 119 H 85 L 10/02/24 16:16 103 H 93 10/02/24 16:11 93 H 114/67 88 L 10/02/24 16:06 119 H 89 L 10/02/24 16:05 113 H 91 10/02/24 16:01 86 98 10/02/24 16:00 18 10/02/24 16:00 18 10/02/24 15:56 78 99 10/02/24 15:55 75 116/67 10/02/24 15:51 80 97 10/02/24 15:45 87 96 10/02/24 15:40 95 H 130/62 94 10/02/24 15:35 92 H 94 10/02/24 15:30 88 98 10/02/24 15:26 95 H 119/74 10/02/24 15:25 100 H 96 10/02/24 15:22 16 10/02/24 15:22 36.9 C 16 10/02/24 15:20 99 H 94 10/02/24 15:15 99 H 95 10/02/24 15:10 94 10/02/24 15:10 95 H 10/02/24 15:10 93 H 107/62 10/02/24 15:05 95 H 96 10/02/24 15:00 104 H 96 10/02/24 14:55 102 H 107/64 96 10/02/24 14:50 102 H 95 10/02/24 14:45 99 H 95 10/02/24 14:41 98 H 119/70 10/02/24 14:40 99 H 96 10/02/24 14:35 102 H 95 10/02/24 14:32 18 10/02/24 14:32 18 10/02/24 14:30 93 H 95 10/02/24 14:25 98 H 115/61 95 10/02/24 14:20 98 H 96 10/02/24 14:15 93 H 95 10/02/24 14:11 100 H 111/68 10/02/24 14:10 92 H 96 10/02/24 14:05 97 H 96 10/02/24 14:00 115 H 95 10/02/24 13:56 105 H 125/72 10/02/24 13:55 106 H 94 10/02/24 13:50 105 H 94 10/02/24 13:45 114 H 95 10/02/24 13:41 112 H 123/72 10/02/24 13:40 107 H 95 10/02/24 13:35 110 H 95 10/02/24 13:30 111 H 96 10/02/24 13:26 115 H 119/79 10/02/24 13:25 114 H 96 10/02/24 13:20 36.9 C 113 H 18 97 10/02/24 13:15 100 H 98 10/02/24 13:10 107 H 104/57 L 96 10/02/24 13:05 109 H 96 10/02/24 13:00 101 H 99/50 L 95 10/02/24 12:55 96 10/02/24 12:55 109 H 10/02/24 12:55 110 H 89/51 L 10/02/24 12:50 104 H 94 10/02/24 12:45 104 H 94 10/02/24 12:41 99 H 101/52 L 10/02/24 12:40 101 H 95 10/02/24 12:35 100 H 94 10/02/24 12:30 102 H 18 95 10/02/24 12:25 102 H 91/56 L 95 10/02/24 12:20 112 H 94 10/02/24 12:15 106 H 94 10/02/24 12:10 92 10/02/24 12:10 106 H 10/02/24 12:10 100 H 102/57 L 10/02/24 12:05 106 H 94 10/02/24 12:00 112 H 16 95 10/02/24 11:57 113 H 92 10/02/24 11:55 112 H 112/54 L 91 10/02/24 11:50 111 H 92 10/02/24 11:45 117 H 94 10/02/24 11:44 114 H 94 10/02/24 11:40 113 H 120/58 L 91 10/02/24 11:36 109 H 94 10/02/24 11:35 117 H 92 10/02/24 11:32 37.1 C 10/02/24 11:30 94 10/02/24 11:30 121 H 10/02/24 11:30 118 H 94 10/02/24 11:25 122 H 98 10/02/24 11:20 122 H 97 10/02/24 11:15 123 H 97 10/02/24 11:10 99 10/02/24 11:10 116 H 10/02/24 11:10 121 H 102/56 L 10/02/24 11:05 98 10/02/24 11:05 122 H 10/02/24 11:05 121 H 115/52 L 10/02/24 11:00 124 H 98 10/02/24 10:58 130 H 112/55 L 10/02/24 10:57 130 H 123/59 L 10/02/24 10:55 132 H 98 10/02/24 10:52 134 H 121/56 L 10/02/24 10:50 132 H 98 10/02/24 10:48 130 H 110/52 L 10/02/24 10:47 139 H 117/51 L 10/02/24 10:45 140 H 97 10/02/24 10:40 147 H 97 10/02/24 10:38 142 H 129/58 L 10/02/24 10:35 97 10/02/24 10:35 134 H 10/02/24 10:35 165/71 H 10/02/24 10:35 136 H 203/81 H 93 10/02/24 10:32 130 H 134/89 10/02/24 10:30 149 H 93 10/02/24 10:29 142 H 93 10/02/24 10:25 138 H 98 10/02/24 10:20 125 H 97 10/02/24 10:11 75 98 10/02/24 10:06 96 10/02/24 10:06 85 10/02/24 10:06 86 92 10/02/24 10:01 73 90 10/02/24 10:00 69 93 10/02/24 09:56 80 97 10/02/24 09:51 100 10/02/24 09:51 76 10/02/24 09:51 76 93 10/02/24 09:50 76 126/82 10/02/24 09:46 77 100 10/02/24 09:41 91 H 98 10/02/24 09:36 69 100 10/02/24 09:31 78 100 10/02/24 09:30 18 10/02/24 09:30 18 10/02/24 09:27 65 93 10/02/24 09:26 60 97 10/02/24 09:24 63 113/67 10/02/24 09:22 62 93 10/02/24 09:21 66 99 10/02/24 09:14 74 100 10/02/24 09:11 70 93 10/02/24 09:09 73 100
[2024-10-02] MEDS: LACTATED RINGER'S 1,000 ML IV SCH (21:35)
--- NOTE | 2024-10-02 21:38 | Obstetrical Progress Note ---
Date of Service October 02, 2024 Assessment & Plan Admission and Anticipated Discharge Date Admission Date: October 01, 2024 Subjective Patient is requesting delivery. Patient understands C section is a major surgery, with risks including but not limited to bleeding , infection, injury to surrounding organs like bowels, bladder, ureters, adhesions, scarring, wound infection, blood cloths in legs/ lungs, longer recovery. All questions were answered. She signed an informed consent. Results & Data Vital Signs (Past 12 Hours) Vital Signs Temp Pulse Resp BP Pulse Ox 10/02/24 21:32 97 10/02/24 21:32 95 H 10/02/24 21:27 97 10/02/24 21:27 97 H 10/02/24 21:23 89 L 10/02/24 21:23 118 H 10/02/24 21:22 92 10/02/24 21:22 121 H 10/02/24 21:22 101 H 10/02/24 21:22 130/76 10/02/24 21:17 97 10/02/24 21:17 95 H 10/02/24 21:12 97 10/02/24 21:12 92 H 10/02/24 21:08 99 H 10/02/24 21:08 120/63 10/02/24 21:07 98 10/02/24 21:07 99 H 10/02/24 21:02 98 10/02/24 21:02 97 H 10/02/24 20:57 98 10/02/24 20:57 95 H 10/02/24 20:52 97 10/02/24 20:52 96 H 10/02/24 20:52 89 10/02/24 20:52 135/73 10/02/24 20:51 86 L 10/02/24 20:51 99 H 10/02/24 20:47 98 10/02/24 20:47 110 H 10/02/24 20:42 96 10/02/24 20:42 92 H 10/02/24 20:39 105 H 10/02/24 20:39 125/84 10/02/24 20:37 99 10/02/24 20:37 100 H 10/02/24 20:32 96 10/02/24 20:32 95 H 10/02/24 20:27 96 10/02/24 20:27 94 H 10/02/24 20:22 96 10/02/24 20:22 88 10/02/24 20:22 87 10/02/24 20:22 127/71 10/02/24 20:17 96 10/02/24 20:17 103 H 10/02/24 20:12 98 10/02/24 20:12 98 H 10/02/24 20:07 99 10/02/24 20:07 104 H 10/02/24 20:06 100 H 10/02/24 20:06 107/59 L 10/02/24 20:02 99 10/02/24 20:02 103 H 10/02/24 19:57 98 10/02/24 19:57 103 H 10/02/24 19:52 99 10/02/24 19:52 103 H 10/02/24 19:47 97 10/02/24 19:47 98 H 10/02/24 19:42 98 10/02/24 19:42 106 H 10/02/24 19:40 106 H 10/02/24 19:40 118/57 L 10/02/24 19:37 99 10/02/24 19:37 99 H 10/02/24 19:32 99 10/02/24 19:32 109 H 10/02/24 19:27 99 10/02/24 19:27 101 H 10/02/24 19:24 96 H 99/56 L 10/02/24 19:22 104 H 99 10/02/24 19:17 120 H 100 10/02/24 19:15 36.9 C 10/02/24 19:12 107 H 100 10/02/24 19:09 109 H 91 10/02/24 19:08 100 H 116/77 10/02/24 19:07 98 H 96 10/02/24 19:03 111 H 122/70 10/02/24 19:02 95 H 94 10/02/24 18:57 95 10/02/24 18:57 94 H 10/02/24 18:57 98 H 120/72 10/02/24 18:53 100 H 85 L 10/02/24 18:52 110 H 126/76 93 10/02/24 18:47 100 H 95 10/02/24 18:46 109 H 124/65 10/02/24 18:44 99 H 122/73 88 L 07/31/25 18:42 86 130/72 97 10/02/24 18:40 88 128/69 10/02/24 18:38 83 127/63 10/02/24 18:37 79 98 10/02/24 18:31 84 100 10/02/24 18:26 97 H 135/88 93 10/02/24 18:21 95 H 97 10/02/24 18:16 85 90 10/02/24 18:12 87 134/74 10/02/24 18:11 96 H 94 10/02/24 18:06 85 95 10/02/24 18:01 87 98 10/02/24 17:56 82 96 10/02/24 17:55 93 H 136/63 10/02/24 17:54 92 H 90 10/02/24 17:51 89 97 10/02/24 17:46 92 H 99 10/02/24 17:41 96 10/02/24 17:41 94 H 10/02/24 17:41 91 H 114/74 10/02/24 17:37 79 86 L 10/02/24 17:36 77 100 10/02/24 17:31 91 H 100 10/02/24 17:30 91 H 123/59 L 10/02/24 17:28 92 H 89 L 10/02/24 17:26 93 H 100 10/02/24 17:22 101 H 90 10/02/24 17:21 100 H 94 10/02/24 17:16 100 10/02/24 17:16 97 H 10/02/24 17:16 93 H 91 10/02/24 17:11 86 100 10/02/24 17:06 75 98 10/02/24 17:01 81 99 10/02/24 16:56 98 10/02/24 16:56 75 10/02/24 16:56 74 87/52 L 10/02/24 16:51 78 97 10/02/24 16:46 78 96 10/02/24 16:41 97 10/02/24 16:41 77 10/02/24 16:41 103/57 L 10/02/24 16:41 92 H 106/62 10/02/24 16:36 91 H 96 10/02/24 16:31 108 H 93 10/02/24 16:26 106 H 95 07/31/25 16:25 121 H 108/67 10/02/24 16:21 83 L 10/02/24 16:21 118 H 10/02/24 16:21 119 H 85 L 10/02/24 16:16 103 H 93 10/02/24 16:11 93 H 114/67 88 L 10/02/24 16:06 119 H 89 L 10/02/24 16:05 113 H 91 10/02/24 16:01 86 98 10/02/24 16:00 18 10/02/24 16:00 18 10/02/24 15:56 78 99 10/02/24 15:55 75 116/67 10/02/24 15:51 80 97 10/02/24 15:45 87 96 10/02/24 15:40 95 H 130/62 94 10/02/24 15:35 92 H 94 10/02/24 15:30 88 98 10/02/24 15:26 95 H 119/74 10/02/24 15:25 100 H 96 10/02/24 15:22 16 10/02/24 15:22 36.9 C 16 10/02/24 15:20 99 H 94 10/02/24 15:15 99 H 95 10/02/24 15:10 94 10/02/24 15:10 95 H 10/02/24 15:10 93 H 107/62 10/02/24 15:05 95 H 96 10/02/24 15:00 104 H 96 10/02/24 14:55 102 H 107/64 96 10/02/24 14:50 102 H 95 10/02/24 14:45 99 H 95 10/02/24 14:41 98 H 119/70 10/02/24 14:40 99 H 96 10/02/24 14:35 102 H 95 10/02/24 14:32 18 10/02/24 14:32 18 10/02/24 14:30 93 H 95 10/02/24 14:25 98 H 115/61 95 10/02/24 14:20 98 H 96 10/02/24 14:15 93 H 95 10/02/24 14:11 100 H 111/68 10/02/24 14:10 92 H 96 10/02/24 14:05 97 H 96 10/02/24 14:00 115 H 95 10/02/24 13:56 105 H 125/72 10/02/24 13:55 106 H 94 10/02/24 13:50 105 H 94 10/02/24 13:45 114 H 95 10/02/24 13:41 112 H 123/72 10/02/24 13:40 107 H 95 10/02/24 13:35 110 H 95 10/02/24 13:30 111 H 96 10/02/24 13:26 115 H 119/79 10/02/24 13:25 114 H 96 10/02/24 13:20 36.9 C 113 H 18 97 10/02/24 13:15 100 H 98 10/02/24 13:10 107 H 104/57 L 96 10/02/24 13:05 109 H 96 10/02/24 13:00 101 H 99/50 L 95 10/02/24 12:55 96 10/02/24 12:55 109 H 10/02/24 12:55 110 H 89/51 L 10/02/24 12:50 104 H 94 10/02/24 12:45 104 H 94 10/02/24 12:41 99 H 101/52 L 10/02/24 12:40 101 H 95 10/02/24 12:35 100 H 94 10/02/24 12:30 102 H 18 95 10/02/24 12:25 102 H 91/56 L 95 10/02/24 12:20 112 H 94 10/02/24 12:15 106 H 94 10/02/24 12:10 92 10/02/24 12:10 106 H 10/02/24 12:10 100 H 102/57 L 10/02/24 12:05 106 H 94 10/02/24 12:00 112 H 16 95 10/02/24 11:57 113 H 92 10/02/24 11:55 112 H 112/54 L 91 10/02/24 11:50 111 H 92 10/02/24 11:45 117 H 94 10/02/24 11:44 114 H 94 10/02/24 11:40 113 H 120/58 L 91 10/02/24 11:36 109 H 94 10/02/24 11:35 117 H 92 10/02/24 11:32 37.1 C 10/02/24 11:30 94 07/31/25 11:30 121 H 10/02/24 11:30 118 H 94 10/02/24 11:25 122 H 98 10/02/24 11:20 122 H 97 10/02/24 11:15 123 H 97 10/02/24 11:10 99 10/02/24 11:10 116 H 10/02/24 11:10 121 H 102/56 L 10/02/24 11:05 98 10/02/24 11:05 122 H 10/02/24 11:05 121 H 115/52 L 10/02/24 11:00 124 H 98 10/02/24 10:58 130 H 112/55 L 10/02/24 10:57 130 H 123/59 L 10/02/24 10:55 132 H 98 10/02/24 10:52 134 H 121/56 L 10/02/24 10:50 132 H 98 10/02/24 10:48 130 H 110/52 L 10/02/24 10:47 139 H 117/51 L 10/02/24 10:45 140 H 97 10/02/24 10:40 147 H 97 10/02/24 10:38 142 H 129/58 L 10/02/24 10:35 97 10/02/24 10:35 134 H 10/02/24 10:35 165/71 H 10/02/24 10:35 136 H 203/81 H 93 10/02/24 10:32 130 H 134/89 10/02/24 10:30 149 H 93 10/02/24 10:29 142 H 93 10/02/24 10:25 138 H 98 10/02/24 10:20 125 H 97 10/02/24 10:11 75 98 10/02/24 10:06 96 10/02/24 10:06 85 10/02/24 10:06 86 92 10/02/24 10:01 73 90 10/02/24 10:00 69 93 10/02/24 09:56 80 97 10/02/24 09:51 100 10/02/24 09:51 76 10/02/24 09:51 76 93 10/02/24 09:50 76 126/82 10/02/24 09:46 77 100 10/02/24 09:41 91 H 98
--- NOTE | 2024-10-02 22:03 | Anesthesia Procedure Note ---
Date of Service October 02, 2024 Anesthesia Epidural Re-Dose Vital Signs Temp Pulse Resp BP Pulse Ox O2 Del Method 36.9 C 88 18 130/76 96 Room Air 10/02/24 19:15 10/02/24 21:57 10/02/24 16:00 10/02/24 21:22 10/02/24 21:57 10/02/24 07:35 Notes Pain Intensity: 4 Dilatation (cm): 9.5 Effacement (%): 90 Called by nursing to evaluate epidural as the patient is having increased pain. The epidural was re-dosed with the following medications (all medications via epidural route) after negative aspiration of the epidural catheter for CSF/HEME 1.2% lidocaine and 0.2% ropivacaine 7ml After Epidural Re-Dose Mental Status: alert / awake / arousable Pain: improving with treatment Airway Patency, RR, SpO2: stable & adequate BP & HR: stable & adequate
[2024-10-02] MEDS: AZITHROMYCIN 500 MG/255 ML BAG IV SCH (22:24)
[2024-10-02] MEDS ORDERED: LACTATED RINGER'S 1,000 ML IV SCH (22:30)
[2024-10-02] MEDS ORDERED: OXYTOCIN 10 UNITS/ML VIAL ONE (22:53)
[2024-10-02] MEDS ORDERED: ONDANSETRON INJ 2 MG/ML 2 ML VIAL ONE (22:53)
[2024-10-02] MEDS ORDERED: METOCLOPRAMIDE HCL INJ 5 MG/ML 2 ML VIAL ONE (22:53)
[2024-10-02] MEDS ORDERED: DEXAMETHASONE SOD INJ 4 MG/ML VIAL ONE (22:53)
[2024-10-02] MEDS ORDERED: MoRPHine SULFATE PF 1 MG/ML 10 ML AMP/VIAL ONE (23:11)
[2024-10-02] MEDS: ACETAMINOPHEN 500 MG TAB PO SCH (23:11)
[2024-10-02] MEDS: CITRIC ACID/SODIUM CITRATE 15 ML UDC PO SCH (23:33)
[2024-10-02 23:42] LABS: Hematocrit (blood only) 31.9 % (37.0-47.0); Hemoglobin 10.5 g/dl (12.0-16.0); Mean Corpuscular Hemoglobin 28.4 pg (25.0-34.0); Mean Corpuscular Volume 86.2 fL (80.0-100.0); Platelet Count 171 K/uL (130-400); RDW Standard Deviation 60.7 fL (36.4-46.3); Red Blood Count 3.70 M/uL (4.20-5.40); White Blood Count 21.91 K/ul (4.8-10.8)
[2024-10-03] MEDS ORDERED: MEPERIDINE HCL 25 MG/ML CARP/VIAL ONE (00:59)
[2024-10-03] MEDS ORDERED: LACTATED RINGER'S 500 ML IV PRN (01:06)
[2024-10-03] MEDS ORDERED: NALOXONE HCL 1 MG in SODIUM CHLORIDE 0.9% 1,000 ML IV PRN (01:06)
[2024-10-03] MEDS ORDERED: NALOXONE HCL 0.4 MG/1 ML VIAL/CARP IV PRN (01:06)
[2024-10-03] MEDS ORDERED: MoRPHine SULFATE PF 1 MG/ML 10 ML AMP/VIAL EPI ONE (01:06)
[2024-10-03] MEDS ORDERED: NALOXONE HCL 0.08 MG in SYRINGE 1.8 ML IV PRN (01:06)
[2024-10-03] MEDS ORDERED: diphenhydrAMINE 50 MG/ML VIAL IV PRN ×2 (01:06→19:10)
[2024-10-03] MEDS ORDERED: PROMETHAZINE 6.25 MG/50.25 ML BAG IV PRN (01:06)
[2024-10-03] MEDS ORDERED: ONDANSETRON INJ 2 MG/ML 2 ML VIAL IV PRN ×2 (01:06→19:10)
[2024-10-03] MEDS ORDERED: NALBUPHINE HCL INJ 10 MG/ML AMP IV PRN (01:06)
[2024-10-03] MEDS ORDERED: MIDAZOLAM HCL 1 MG/ML 2ML VIAL ONE (01:14)
[2024-10-03] MEDS ORDERED: DC INTRASPINAL MORPHINE SCH (01:15)
[2024-10-03] MEDS ORDERED: NO NARCOTICS OR SEDATIVES SCH (01:15)
[2024-10-03] MEDS ORDERED: SODIUM CHLORIDE 0.9% 1,000 ML IV SCH (01:15)
[2024-10-03] MEDS ORDERED: MAGNESIUM HYDROXIDE SUSP 30 ML UDC PO PRN (01:39)
[2024-10-03] MEDS ORDERED: HYDROCORTISONE ACETATE 25 MG SUPP PR PRN (01:39)
[2024-10-03] MEDS ORDERED: CALCIUM CARBONATE 500 MG CHEWABLE TAB PO PRN (01:39)
[2024-10-03] MEDS ORDERED: BENZOCAINE 20% SPRY 85 APPLN/85 GM CAN EXT PRN (01:39)
[2024-10-03] MEDS ORDERED: DIPHTHER/TETAN/PERTUS Vaccine (Tdap, Adol/Adult) 0.5mL IM ONE (01:39)
[2024-10-03] MEDS ORDERED: SENNA 8.6 MG TAB PO PRN (01:39)
[2024-10-03] MEDS ORDERED: OXYTOCIN 20 UNITS in D5W AND LACTATED RINGERS 1,000 ML IV SCH (01:45)
[2024-10-03] MEDS ORDERED: LACTATED RINGER'S 1,000 ML IV SCH (01:45)
--- NOTE | 2024-10-03 01:45 | Operative Report ---
Post Operative Report Pre & Post Diagnosis Operation Date: 10/02/24 22:00 Pre-Op Diagnosis: 1. Arrest of descent 2. Suspected LGA Post-Op Diagnosis: 1. Same 2 Delivery of live male child at 0054, lower uterine transverse incision I identified the patient and participated in the time-out.: Yes Procedure Operation Date: 10/02/24 22:00 Actual Procedures p Section in - Elliot Sigala MD Surgeon Elliot Sigala MD Supply Chain Manager GALEN Elizabeth Quantitative Blood Loss (QBL) 738 Findings Consistent with Post-Op Diagnosis Baby was a viable male delivered at 00:54 AM encephali presentation, direct occiput posterior position, Apgars 8/9, weight is 4510 g maternal findings, normal uterus fallopian tubes and ovaries. Specimens Placenta and cord Drains Ang catheter drained 100 mL of clear urine Anesthesia Type Labor Epidural Complications none Indications patient is a 28-year-old G1, P0 at 41 weeks of gestation who was admitted on October 01 for induction of labor for postdates. She has received cervical ripening with Cervidil followed by po Cytotec after which she went into active labor with regular contractions. she has received epidural for pain and contractions were augmented with AROM and IV oxytocin per protocol. despite adequate uterine contractions 4 hours cervix remained the same, arrest of dilatation active phase of labor, suspected macrosomia/LGA. Decision was made to proceed with primary delivery. Patient understood the risks and benefits and signed informed consent. Description of Procedure Patient was taken to operating room Epidural anesthesia was found to be adequate. She was placed in dorsal supine position with a leftward tilt. She was prepared and draped in usual sterile fashion. A financial skin incision was made and carried through to the underlying layer of fascia with the Bovie. Fascia was incised in the midline and incision was extended laterally with the help of Johnson scissors. Then the upper aspect of the fascial incision was grasped with 2 Claudette clamps elevated the underlying rectus muscles were dissected off sharply with Johnson scissors. Same thing was done on the lower incision. Then the muscles were in the midline, peritoneum was identified grasped with 2 pickups and entered sharply with Metzenbaum scissors. Peritoneal incision was extended superior and inferiorly with good visualization of the bladder. The bladder blade was inserted. Vesicouterine peritoneum was identified, grasped with pickups and entered sharply with Metzenbaum scissors, bladder flap was created digitally and bladder blade was reinserted. Uterus was incised in transverse fashion, incision was extended laterally, membranes were ruptured and clear fluid was obtained. Baby's head was in direct occiput posterior position, it was brought to the incision and delivered without difficulty, followed by shoulders and body with minimal traction without faculty. Mouth and nose were suctioned there was dried on the field he was vigorously crying and moving. The cord was clamped times and cut at 1 minute delay and then the was handed off to the pediatric team. Then the placenta was delivered manually as intact and complete. Uterus was externalized and cleared of all clots and debris's. Uterine incision was repaired with 0 Vicryl in a running locked fashion, second umbricating layer was placed with the same suture in running locked fashion. Excellent hemostasis achieved. Cul-de-sac and the pelvis was irrigated with warm normal saline and suctioned. Incision was checked of anesthetic again. Uterus was returned to the abdomen, parietal peritoneum was reapproximated with 3-0 Vicryl in a running fashion and the muscles were reapproximated in the same suture in a running fashion. All of the fascia and rectus muscles were hemostatic. Rectus fascia was reapproximated with 0 Vicryl starting from both columns meeting in the midline. Subcuticular fat tissue was brought together with 2-0 Vicryl in a running fashion, skin was closed with 4-0 Monocryl in a subcuticular cuticular fashion. The mom and baby tolerated procedure well. Sponge needle instrument count was correct x3. she was given 2 g of cefazolin and 500 mg of azithromycin before surgery. No complications happened, I was present during whole procedure. My physical therapy assistant instructor was needed for retraction, hemostasis and aid during delivery of infant I attest to the content of the Intraoperative Record and any orders documented therein. Any exceptions are noted below.
--- NOTE | 2024-10-03 01:45 | Anesthesia Procedure Note ---
Date of Service October 03, 2024 Anesthesia Post Epidural Note Vital Signs Vital Signs: Temp Pulse Resp BP Pulse Ox O2 Del Method 37.3 C 102 H 18 102/64 97 Room Air 10/02/24 23:24 10/03/24 00:29 10/02/24 16:00 10/03/24 00:29 10/03/24 00:27 10/02/24 07:35 Pain Intensity Back: Pain Intensity: 1 Notes Mental Status: alert / awake / arousable and participated in evaluation Nausea / Vomiting: adequately controlled Pain: adequately controlled Airway Patency, RR, SpO2: stable & adequate BP & HR: stable & adequate Hydration State: stable & adequate Neuraxial Anesthesia: was administered and sensory block is resolving Anesthetic Complications: no major complications apparent Epidural: Removed without complications and With tip intact
[2024-10-03] MEDS: OXYTOCIN 20 UNITS/LR 1,002 ML IV SCH (02:13)
[2024-10-03] MEDS: KETOROLAC 30 MG/ML VIAL IV SCH (03:00)
--- NOTE | 2024-10-03 05:14 | Anesthesiology Progress Note ---
Date of Service October 03, 2024 Anesthesia Post Procedure Vital Signs Vital Signs: Temp Pulse Pulse Resp BP BP Pulse Ox 10/03/24 04:30 36.7 C 85 16 113/72 99 10/03/24 04:04 79 108/58 L 10/03/24 03:55 72 103/55 L 10/03/24 03:45 19 98 10/03/24 03:45 37.0 C 16 10/03/24 03:44 72 110/63 10/03/24 03:34 75 120/70 10/03/24 03:24 71 116/69 10/03/24 03:15 16 96 10/03/24 03:14 74 113/63 10/03/24 03:04 78 113/59 L 10/03/24 02:54 70 108/62 10/03/24 02:45 36.8 C 15 96 10/03/24 02:44 73 111/61 10/03/24 02:35 14 98 10/03/24 02:34 79 109/57 L 10/03/24 02:26 86 109/58 L 10/03/24 02:25 16 96 10/03/24 02:15 14 97 10/03/24 02:14 90 112/63 10/03/24 02:05 16 95 10/03/24 02:04 93 H 112/61 10/03/24 01:54 91 H 107/60 10/03/24 01:53 36.8 C 10/03/24 01:53 92 H 107/59 L 10/03/24 00:29 102 H 102/64 10/03/24 00:27 104 H 97 10/03/24 00:22 93 H 96 10/03/24 00:17 95 H 96 10/03/24 00:14 102 H 110/60 10/03/24 00:12 97 H 89 L 10/03/24 00:09 90 91 10/03/24 00:07 91 H 92 10/03/24 00:03 96 H 91 10/03/24 00:02 91 H 92 10/02/24 23:59 89 10/02/24 23:59 95/55 L 10/02/24 23:57 92 10/02/24 23:57 90 10/02/24 23:56 91 10/02/24 23:56 92 H 10/02/24 23:52 96 10/02/24 23:52 97 H 10/02/24 23:48 89 L 10/02/24 23:48 95 H 10/02/24 23:47 92 10/02/24 23:47 93 H 10/02/24 23:43 93 H 10/02/24 23:43 104/54 L 10/02/24 23:42 94 10/02/24 23:42 99 H 10/02/24 23:37 94 10/02/24 23:37 105 H 10/02/24 23:32 94 10/02/24 23:32 99 H 10/02/24 23:27 95 10/02/24 23:27 109 H 10/02/24 23:24 37.3 C 10/02/24 23:22 95 10/02/24 23:22 107 H 10/02/24 23:18 103 H 10/02/24 23:18 104/59 L 10/02/24 23:17 94 10/02/24 23:17 114 H 10/02/24 23:12 96 10/02/24 23:12 114 H 10/02/24 23:07 95 10/02/24 23:07 106 H 10/02/24 23:04 91 10/02/24 23:04 108 H 10/02/24 23:03 105 H 10/02/24 23:03 107/71 10/02/24 23:02 93 10/02/24 23:02 112 H 10/02/24 22:57 93 10/02/24 22:57 105 H 10/02/24 22:52 97 10/02/24 22:52 105 H 10/02/24 22:47 97 10/02/24 22:47 103 H 10/02/24 22:45 95 H 10/02/24 22:45 104/55 L 10/02/24 22:42 97 10/02/24 22:42 93 H 10/02/24 22:41 89 L 10/02/24 22:41 101 H 10/02/24 22:38 86 10/02/24 22:38 93/52 L 10/02/24 22:37 94 10/02/24 22:37 90 10/02/24 22:32 100 10/02/24 22:32 92 H 10/02/24 22:27 100 10/02/24 22:27 90 10/02/24 22:26 81 10/02/24 22:26 105/55 L 10/02/24 22:24 80 10/02/24 22:24 111/55 L 10/02/24 22:22 99 10/02/24 22:22 82 10/02/24 22:22 111/58 L 10/02/24 22:20 76 10/02/24 22:20 108/58 L 10/02/24 22:18 88 10/02/24 22:18 122/68 10/02/24 22:17 99 10/02/24 22:17 82 10/02/24 22:17 74 10/02/24 22:17 122/60 10/02/24 22:14 88 10/02/24 22:14 128/68 10/02/24 22:12 100 10/02/24 22:12 74 10/02/24 22:12 119/64 10/02/24 22:10 77 10/02/24 22:10 112/58 L 10/02/24 22:09 86 10/02/24 22:09 120/62 10/02/24 22:07 100 10/02/24 22:07 83 10/02/24 22:07 117/58 L 10/02/24 22:04 85 10/02/24 22:04 136/68 10/02/24 22:02 100 10/02/24 22:02 86 10/02/24 21:57 96 10/02/24 21:57 88 10/02/24 21:52 99 10/02/24 21:52 97 H 10/02/24 21:47 98 10/02/24 21:47 93 H 10/02/24 21:42 96 10/02/24 21:42 81 10/02/24 21:37 98 10/02/24 21:37 95 H 10/02/24 21:32 97 10/02/24 21:32 95 H 10/02/24 21:30 36.8 C 10/02/24 21:27 97 10/02/24 21:27 97 H 10/02/24 21:23 89 L 10/02/24 21:23 118 H 10/02/24 21:22 92 10/02/24 21:22 121 H 10/02/24 21:22 101 H 10/02/24 21:22 130/76 10/02/24 21:17 97 10/02/24 21:17 95 H 10/02/24 21:12 97 10/02/24 21:12 92 H 10/02/24 21:08 99 H 10/02/24 21:08 120/63 10/02/24 21:07 98 10/02/24 21:07 99 H 10/02/24 21:02 98 10/02/24 21:02 97 H 10/02/24 20:57 98 10/02/24 20:57 95 H 10/02/24 20:52 97 10/02/24 20:52 96 H 10/02/24 20:52 89 10/02/24 20:52 135/73 10/02/24 20:51 86 L 10/02/24 20:51 99 H 10/02/24 20:47 98 10/02/24 20:47 110 H 10/02/24 20:42 96 10/02/24 20:42 92 H 10/02/24 20:39 105 H 10/02/24 20:39 125/84 10/02/24 20:37 99 10/02/24 20:37 100 H 10/02/24 20:32 96 10/02/24 20:32 95 H 10/02/24 20:27 96 10/02/24 20:27 94 H 10/02/24 20:22 96 10/02/24 20:22 88 10/02/24 20:22 87 10/02/24 20:22 127/71 10/02/24 20:17 96 10/02/24 20:17 103 H 10/02/24 20:12 98 10/02/24 20:12 98 H 10/02/24 20:07 99 10/02/24 20:07 104 H 10/02/24 20:06 100 H 10/02/24 20:06 107/59 L 10/02/24 20:02 99 10/02/24 20:02 103 H 10/02/24 19:57 98 10/02/24 19:57 103 H 10/02/24 19:52 99 10/02/24 19:52 103 H 10/02/24 19:47 97 07/31/25 19:47 98 H 10/02/24 19:42 98 10/02/24 19:42 106 H 10/02/24 19:40 106 H 10/02/24 19:40 118/57 L 10/02/24 19:37 99 10/02/24 19:37 99 H 10/02/24 19:32 99 10/02/24 19:32 109 H 10/02/24 19:27 99 10/02/24 19:27 101 H 10/02/24 19:24 96 H 99/56 L 10/02/24 19:22 104 H 99 10/02/24 19:17 120 H 100 10/02/24 19:15 36.9 C 10/02/24 19:12 107 H 100 10/02/24 19:09 109 H 91 10/02/24 19:08 100 H 116/77 10/02/24 19:07 98 H 96 10/02/24 19:03 111 H 122/70 10/02/24 19:02 95 H 94 10/02/24 18:57 95 10/02/24 18:57 94 H 10/02/24 18:57 98 H 120/72 10/02/24 18:53 100 H 85 L 10/02/24 18:52 110 H 126/76 93 10/02/24 18:47 100 H 95 10/02/24 18:46 109 H 124/65 10/02/24 18:44 99 H 122/73 88 L 10/02/24 18:42 86 130/72 97 10/02/24 18:40 88 128/69 10/02/24 18:38 83 127/63 10/02/24 18:37 79 98 10/02/24 18:31 84 100 10/02/24 18:26 97 H 135/88 93 10/02/24 18:21 95 H 97 10/02/24 18:16 85 90 10/02/24 18:12 87 134/74 10/02/24 18:11 96 H 94 10/02/24 18:06 85 95 10/02/24 18:01 87 98 10/02/24 17:56 82 96 10/02/24 17:55 93 H 136/63 10/02/24 17:54 92 H 90 10/02/24 17:51 89 97 10/02/24 17:46 92 H 99 10/02/24 17:41 96 10/02/24 17:41 94 H 10/02/24 17:41 91 H 114/74 10/02/24 17:37 79 86 L 10/02/24 17:36 77 100 10/02/24 17:31 91 H 100 10/02/24 17:30 91 H 123/59 L 10/02/24 17:28 92 H 89 L 10/02/24 17:26 93 H 100 10/02/24 17:22 101 H 90 10/02/24 17:21 100 H 94 10/02/24 17:16 100 10/02/24 17:16 97 H 10/02/24 17:16 93 H 91 10/02/24 17:11 86 100 10/02/24 17:06 75 98 10/02/24 17:01 81 99 10/02/24 16:56 98 10/02/24 16:56 75 10/02/24 16:56 74 87/52 L 10/02/24 16:51 78 97 10/02/24 16:46 78 96 10/02/24 16:41 97 10/02/24 16:41 77 10/02/24 16:41 103/57 L 10/02/24 16:41 92 H 106/62 10/02/24 16:36 91 H 96 10/02/24 16:31 108 H 93 10/02/24 16:26 106 H 95 10/02/24 16:25 121 H 108/67 10/02/24 16:21 83 L 10/02/24 16:21 118 H 10/02/24 16:21 119 H 85 L 10/02/24 16:16 103 H 93 10/02/24 16:11 93 H 114/67 88 L 10/02/24 16:06 119 H 89 L 10/02/24 16:05 113 H 91 10/02/24 16:01 86 98 10/02/24 16:00 18 10/02/24 16:00 18 10/02/24 15:56 78 99 10/02/24 15:55 75 116/67 10/02/24 15:51 80 97 10/02/24 15:45 87 96 10/02/24 15:40 95 H 130/62 94 07/31/25 15:35 92 H 94 10/02/24 15:30 88 98 10/02/24 15:26 95 H 119/74 10/02/24 15:25 100 H 96 10/02/24 15:22 16 10/02/24 15:22 36.9 C 16 10/02/24 15:20 99 H 94 10/02/24 15:15 99 H 95 10/02/24 15:10 94 10/02/24 15:10 95 H 10/02/24 15:10 93 H 107/62 10/02/24 15:05 95 H 96 10/02/24 15:00 104 H 96 10/02/24 14:55 102 H 107/64 96 10/02/24 14:50 102 H 95 10/02/24 14:45 99 H 95 10/02/24 14:41 98 H 119/70 10/02/24 14:40 99 H 96 10/02/24 14:35 102 H 95 10/02/24 14:32 18 10/02/24 14:32 18 10/02/24 14:30 93 H 95 10/02/24 14:25 98 H 115/61 95 10/02/24 14:20 98 H 96 10/02/24 14:15 93 H 95 10/02/24 14:11 100 H 111/68 10/02/24 14:10 92 H 96 10/02/24 14:05 97 H 96 10/02/24 14:00 115 H 95 10/02/24 13:56 105 H 125/72 10/02/24 13:55 106 H 94 10/02/24 13:50 105 H 94 10/02/24 13:45 114 H 95 10/02/24 13:41 112 H 123/72 10/02/24 13:40 107 H 95 10/02/24 13:35 110 H 95 10/02/24 13:30 111 H 96 10/02/24 13:26 115 H 119/79 10/02/24 13:25 114 H 96 10/02/24 13:20 36.9 C 113 H 18 97 10/02/24 13:15 100 H 98 10/02/24 13:10 107 H 104/57 L 96 10/02/24 13:05 109 H 96 10/02/24 13:00 101 H 99/50 L 95 10/02/24 12:55 96 10/02/24 12:55 109 H 10/02/24 12:55 110 H 89/51 L 10/02/24 12:50 104 H 94 10/02/24 12:45 104 H 94 10/02/24 12:41 99 H 101/52 L 10/02/24 12:40 101 H 95 10/02/24 12:35 100 H 94 10/02/24 12:30 102 H 18 95 10/02/24 12:25 102 H 91/56 L 95 10/02/24 12:20 112 H 94 10/02/24 12:15 106 H 94 10/02/24 12:10 92 10/02/24 12:10 106 H 10/02/24 12:10 100 H 102/57 L 10/02/24 12:05 106 H 94 10/02/24 12:00 112 H 16 95 10/02/24 11:57 113 H 92 10/02/24 11:55 112 H 112/54 L 91 10/02/24 11:50 111 H 92 10/02/24 11:45 117 H 94 10/02/24 11:44 114 H 94 10/02/24 11:40 113 H 120/58 L 91 10/02/24 11:36 109 H 94 10/02/24 11:35 117 H 92 10/02/24 11:32 37.1 C 10/02/24 11:30 94 10/02/24 11:30 121 H 10/02/24 11:30 118 H 94 10/02/24 11:25 122 H 98 10/02/24 11:20 122 H 97 10/02/24 11:15 123 H 97 10/02/24 11:10 99 10/02/24 11:10 116 H 10/02/24 11:10 121 H 102/56 L 10/02/24 11:05 98 10/02/24 11:05 122 H 10/02/24 11:05 121 H 115/52 L 10/02/24 11:00 124 H 98 10/02/24 10:58 130 H 112/55 L 10/02/24 10:57 130 H 123/59 L 10/02/24 10:55 132 H 98 10/02/24 10:52 134 H 121/56 L 10/02/24 10:50 132 H 98 10/02/24 10:48 130 H 110/52 L 10/02/24 10:47 139 H 117/51 L 10/02/24 10:45 140 H 97 10/02/24 10:40 147 H 97 10/02/24 10:38 142 H 129/58 L 10/02/24 10:35 97 10/02/24 10:35 134 H 10/02/24 10:35 165/71 H 10/02/24 10:35 136 H 203/81 H 93 10/02/24 10:32 130 H 134/89 10/02/24 10:30 149 H 93 10/02/24 10:29 142 H 93 10/02/24 10:25 138 H 98 10/02/24 10:20 125 H 97 10/02/24 10:11 75 98 10/02/24 10:06 96 10/02/24 10:06 85 10/02/24 10:06 86 92 10/02/24 10:01 73 90 10/02/24 10:00 69 93 10/02/24 09:56 80 97 10/02/24 09:51 100 10/02/24 09:51 76 10/02/24 09:51 76 93 10/02/24 09:50 76 126/82 10/02/24 09:46 77 100 10/02/24 09:41 91 H 98 10/02/24 09:36 69 100 10/02/24 09:31 78 100 10/02/24 09:30 18 10/02/24 09:30 18 10/02/24 09:27 65 93 10/02/24 09:26 60 97 10/02/24 09:24 63 113/67 10/02/24 09:22 62 93 10/02/24 09:21 66 99 10/02/24 09:14 74 100 10/02/24 09:11 70 93 10/02/24 09:09 73 100 10/02/24 09:04 77 100 10/02/24 09:00 18 10/02/24 09:00 36.9 C 18 10/02/24 08:59 70 100 10/02/24 08:54 61 100 10/02/24 08:51 76 124/87 10/02/24 08:49 68 100 10/02/24 08:44 64 97 10/02/24 08:41 79 89 L 10/02/24 08:39 78 97 10/02/24 08:34 89 97 10/02/24 08:30 70 113/60 10/02/24 08:29 75 100 10/02/24 08:24 74 98 10/02/24 08:19 97 10/02/24 08:19 89 10/02/24 08:19 90 94 10/02/24 08:14 65 97 10/02/24 08:09 93 H 92 10/02/24 08:05 70 91 10/02/24 08:04 69 94 10/02/24 07:59 73 98 10/02/24 07:54 74 98 10/02/24 07:49 71 99 10/02/24 07:35 10/02/24 07:35 20 10/02/24 07:35 36.9 C 68 20 116/70 O2 Del Method 10/03/24 04:30 Room Air 10/03/24 04:04 10/03/24 03:55 10/03/24 03:45 10/03/24 03:45 10/03/24 03:44 10/03/24 03:34 10/03/24 03:24 10/03/24 03:15 10/03/24 03:14 10/03/24 03:04 10/03/24 02:54 10/03/24 02:45 10/03/24 02:44 10/03/24 02:35 10/03/24 02:34 10/03/24 02:26 10/03/24 02:25 10/03/24 02:15 10/03/24 02:14 10/03/24 02:05 10/03/24 02:04 10/03/24 01:54 10/03/24 01:53 10/03/24 01:53 10/03/24 00:29 10/03/24 00:27 10/03/24 00:22 10/03/24 00:17 10/03/24 00:14 10/03/24 00:12 10/03/24 00:09 10/03/24 00:07 10/03/24 00:03 10/03/24 00:02 10/02/24 23:59 10/02/24 23:59 10/02/24 23:57 10/02/24 23:57 10/02/24 23:56 10/02/24 23:56 10/02/24 23:52 10/02/24 23:52 10/02/24 23:48 10/02/24 23:48 10/02/24 23:47 10/02/24 23:47 10/02/24 23:43 10/02/24 23:43 10/02/24 23:42 10/02/24 23:42 10/02/24 23:37 10/02/24 23:37 10/02/24 23:32 10/02/24 23:32 10/02/24 23:27 10/02/24 23:27 10/02/24 23:24 10/02/24 23:22 10/02/24 23:22 10/02/24 23:18 10/02/24 23:18 10/02/24 23:17 10/02/24 23:17 10/02/24 23:12 10/02/24 23:12 10/02/24 23:07 10/02/24 23:07 10/02/24 23:04 10/02/24 23:04 10/02/24 23:03 10/02/24 23:03 10/02/24 23:02 10/02/24 23:02 10/02/24 22:57 10/02/24 22:57 10/02/24 22:52 10/02/24 22:52 10/02/24 22:47 10/02/24 22:47 10/02/24 22:45 10/02/24 22:45 10/02/24 22:42 10/02/24 22:42 10/02/24 22:41 10/02/24 22:41 10/02/24 22:38 10/02/24 22:38 10/02/24 22:37 10/02/24 22:37 10/02/24 22:32 10/02/24 22:32 10/02/24 22:27 10/02/24 22:27 10/02/24 22:26 10/02/24 22:26 10/02/24 22:24 10/02/24 22:24 10/02/24 22:22 10/02/24 22:22 10/02/24 22:22 10/02/24 22:20 10/02/24 22:20 10/02/24 22:18 10/02/24 22:18 10/02/24 22:17 10/02/24 22:17 10/02/24 22:17 10/02/24 22:17 10/02/24 22:14 10/02/24 22:14 10/02/24 22:12 10/02/24 22:12 10/02/24 22:12 10/02/24 22:10 10/02/24 22:10 10/02/24 22:09 10/02/24 22:09 10/02/24 22:07 10/02/24 22:07 10/02/24 22:07 10/02/24 22:04 10/02/24 22:04 10/02/24 22:02 10/02/24 22:02 10/02/24 21:57 10/02/24 21:57 10/02/24 21:52 10/02/24 21:52 10/02/24 21:47 10/02/24 21:47 10/02/24 21:42 10/02/24 21:42 10/02/24 21:37 10/02/24 21:37 10/02/24 21:32 10/02/24 21:32 10/02/24 21:30 10/02/24 21:27 10/02/24 21:27 10/02/24 21:23 10/02/24 21:23 10/02/24 21:22 10/02/24 21:22 10/02/24 21:22 10/02/24 21:22 10/02/24 21:17 10/02/24 21:17 10/02/24 21:12 10/02/24 21:12 10/02/24 21:08 10/02/24 21:08 10/02/24 21:07 10/02/24 21:07 10/02/24 21:02 10/02/24 21:02 10/02/24 20:57 10/02/24 20:57 10/02/24 20:52 10/02/24 20:52 10/02/24 20:52 10/02/24 20:52 10/02/24 20:51 10/02/24 20:51 10/02/24 20:47 10/02/24 20:47 10/02/24 20:42 10/02/24 20:42 10/02/24 20:39 10/02/24 20:39 10/02/24 20:37 10/02/24 20:37 10/02/24 20:32 10/02/24 20:32 10/02/24 20:27 10/02/24 20:27 10/02/24 20:22 10/02/24 20:22 10/02/24 20:22 10/02/24 20:22 10/02/24 20:17 10/02/24 20:17 10/02/24 20:12 10/02/24 20:12 10/02/24 20:07 10/02/24 20:07 10/02/24 20:06 10/02/24 20:06 10/02/24 20:02 10/02/24 20:02 10/02/24 19:57 10/02/24 19:57 10/02/24 19:52 10/02/24 19:52 10/02/24 19:47 10/02/24 19:47 10/02/24 19:42 10/02/24 19:42 10/02/24 19:40 10/02/24 19:40 10/02/24 19:37 10/02/24 19:37 10/02/24 19:32 10/02/24 19:32 10/02/24 19:27 10/02/24 19:27 10/02/24 19:24 10/02/24 19:22 10/02/24 19:17 10/02/24 19:15 10/02/24 19:12 10/02/24 19:09 10/02/24 19:08 10/02/24 19:07 10/02/24 19:03 10/02/24 19:02 10/02/24 18:57 10/02/24 18:57 10/02/24 18:57 10/02/24 18:53 10/02/24 18:52 10/02/24 18:47 10/02/24 18:46 10/02/24 18:44 10/02/24 18:42 10/02/24 18:40 10/02/24 18:38 10/02/24 18:37 10/02/24 18:31 10/02/24 18:26 10/02/24 18:21 10/02/24 18:16 10/02/24 18:12 10/02/24 18:11 10/02/24 18:06 10/02/24 18:01 10/02/24 17:56 10/02/24 17:55 10/02/24 17:54 10/02/24 17:51 10/02/24 17:46 10/02/24 17:41 10/02/24 17:41 10/02/24 17:41 10/02/24 17:37 10/02/24 17:36 10/02/24 17:31 10/02/24 17:30 10/02/24 17:28 10/02/24 17:26 10/02/24 17:22 10/02/24 17:21 10/02/24 17:16 10/02/24 17:16 10/02/24 17:16 10/02/24 17:11 10/02/24 17:06 10/02/24 17:01 10/02/24 16:56 10/02/24 16:56 10/02/24 16:56 10/02/24 16:51 10/02/24 16:46 10/02/24 16:41 10/02/24 16:41 10/02/24 16:41 10/02/24 16:41 10/02/24 16:36 10/02/24 16:31 10/02/24 16:26 10/02/24 16:25 10/02/24 16:21 10/02/24 16:21 10/02/24 16:21 10/02/24 16:16 10/02/24 16:11 10/02/24 16:06 10/02/24 16:05 10/02/24 16:01 10/02/24 16:00 10/02/24 16:00 10/02/24 15:56 10/02/24 15:55 10/02/24 15:51 10/02/24 15:45 10/02/24 15:40 10/02/24 15:35 10/02/24 15:30 10/02/24 15:26 10/02/24 15:25 10/02/24 15:22 10/02/24 15:22 10/02/24 15:20 10/02/24 15:15 10/02/24 15:10 10/02/24 15:10 10/02/24 15:10 10/02/24 15:05 10/02/24 15:00 10/02/24 14:55 10/02/24 14:50 10/02/24 14:45 10/02/24 14:41 10/02/24 14:40 10/02/24 14:35 10/02/24 14:32 10/02/24 14:32 10/02/24 14:30 10/02/24 14:25 10/02/24 14:20 10/02/24 14:15 10/02/24 14:11 10/02/24 14:10 10/02/24 14:05 10/02/24 14:00 10/02/24 13:56 10/02/24 13:55 10/02/24 13:50 10/02/24 13:45 10/02/24 13:41 10/02/24 13:40 10/02/24 13:35 10/02/24 13:30 10/02/24 13:26 10/02/24 13:25 10/02/24 13:20 10/02/24 13:15 10/02/24 13:10 10/02/24 13:05 10/02/24 13:00 10/02/24 12:55 10/02/24 12:55 10/02/24 12:55 10/02/24 12:50 10/02/24 12:45 10/02/24 12:41 10/02/24 12:40 10/02/24 12:35 10/02/24 12:30 10/02/24 12:25 10/02/24 12:20 10/02/24 12:15 10/02/24 12:10 10/02/24 12:10 10/02/24 12:10 10/02/24 12:05 10/02/24 12:00 10/02/24 11:57 10/02/24 11:55 10/02/24 11:50 10/02/24 11:45 10/02/24 11:44 10/02/24 11:40 10/02/24 11:36 10/02/24 11:35 10/02/24 11:32 10/02/24 11:30 10/02/24 11:30 10/02/24 11:30 10/02/24 11:25 10/02/24 11:20 10/02/24 11:15 10/02/24 11:10 10/02/24 11:10 10/02/24 11:10 10/02/24 11:05 10/02/24 11:05 10/02/24 11:05 10/02/24 11:00 10/02/24 10:58 10/02/24 10:57 10/02/24 10:55 10/02/24 10:52 10/02/24 10:50 10/02/24 10:48 10/02/24 10:47 10/02/24 10:45 10/02/24 10:40 10/02/24 10:38 10/02/24 10:35 10/02/24 10:35 10/02/24 10:35 10/02/24 10:35 10/02/24 10:32 10/02/24 10:30 10/02/24 10:29 10/02/24 10:25 10/02/24 10:20 10/02/24 10:11 10/02/24 10:06 10/02/24 10:06 10/02/24 10:06 10/02/24 10:01 10/02/24 10:00 10/02/24 09:56 10/02/24 09:51 10/02/24 09:51 10/02/24 09:51 10/02/24 09:50 10/02/24 09:46 10/02/24 09:41 10/02/24 09:36 10/02/24 09:31 10/02/24 09:30 10/02/24 09:30 10/02/24 09:27 10/02/24 09:26 10/02/24 09:24 10/02/24 09:22 10/02/24 09:21 10/02/24 09:14 10/02/24 09:11 10/02/24 09:09 10/02/24 09:04 10/02/24 09:00 10/02/24 09:00 10/02/24 08:59 10/02/24 08:54 10/02/24 08:51 10/02/24 08:49 10/02/24 08:44 10/02/24 08:41 10/02/24 08:39 10/02/24 08:34 10/02/24 08:30 10/02/24 08:29 10/02/24 08:24 10/02/24 08:19 10/02/24 08:19 10/02/24 08:19 10/02/24 08:14 10/02/24 08:09 10/02/24 08:05 10/02/24 08:04 10/02/24 07:59 10/02/24 07:54 10/02/24 07:49 10/02/24 07:35 Room Air 10/02/24 07:35 10/02/24 07:35 Pain Intensity Back: Pain Intensity: 1 Abdomen: Pain Intensity: 2 Transfer of Care Handoff Completed per policy Notes Mental Status: alert / awake / arousable Patient Amnestic to Procedure: Yes Nausea / Vomiting: adequately controlled Pain: adequately controlled Airway Patency, RR, SpO2: stable & adequate BP & HR: stable & adequate Hydration State: stable & adequate Anesthetic Complications: no major complications apparent
[2024-10-03] MEDS ORDERED: SODIUM CHLORIDE 0.9% 100 ML IV PRN (07:07)
[2024-10-03] MEDS: PRENATAL VITAMIN 1 TAB PO SCH (07:49)
[2024-10-03] MEDS: FERROUS SULFATE 325 MG TAB PO SCH (07:49)
[2024-10-03] MEDS: SIMETHICONE 80 MG CHEW PO SCH (07:49)
[2024-10-03] MEDS: DOCUSATE SODIUM 100 MG CAP PO SCH (07:49)
[2024-10-03] MEDS: ACETAMINOPHEN 325 MG TAB PO SCH (07:50)
--- NOTE | 2024-10-03 09:04 | Obstetrical Progress Note ---
Date of Service October 03, 2024 Assessment & Plan (1) Status post delivery: Present on Admission?: No Plan S/P c/S POD #1 Pt clinically and hemodynamically stable encourage ambulation regular diet routine postop care Subjective Ambulation: ambulating normally Review of Systems All systems reviewed & are unremarkable except as noted in HPI & below Constitutional: + as per Subjective / HPI Physical Exam Constitutional WD/WN, vitals as above Respiratory normal respiratory effort, lungs clear to auscultation Cardiovascular RRR, no murmur, no edema Gastrointestinal (Abdomen) normal bowel sounds, soft, nontender, no hepatosplenomegaly incision with dressing on, clean Skin no rashes, warm and dry Psychiatric A+Ox3, euthymic affect Genitourinary deferred Results & Data Vital Signs (Past 12 Hours) Vital Signs Temp Pulse Pulse Resp BP BP Pulse Ox 10/03/24 04:30 36.7 C 85 16 113/72 99 10/03/24 04:04 79 108/58 L 10/03/24 03:55 72 103/55 L 10/03/24 03:45 19 98 10/03/24 03:45 37.0 C 16 10/03/24 03:44 72 110/63 10/03/24 03:34 75 120/70 10/03/24 03:24 71 116/69 10/03/24 03:15 16 96 10/03/24 03:14 74 113/63 10/03/24 03:04 78 113/59 L 10/03/24 02:54 70 108/62 10/03/24 02:45 36.8 C 15 96 10/03/24 02:44 73 111/61 10/03/24 02:35 14 98 10/03/24 02:34 79 109/57 L 10/03/24 02:26 86 109/58 L 10/03/24 02:25 16 96 10/03/24 02:15 14 97 10/03/24 02:14 90 112/63 10/03/24 02:05 16 95 10/03/24 02:04 93 H 112/61 10/03/24 01:54 91 H 107/60 10/03/24 01:53 36.8 C 10/03/24 01:53 92 H 107/59 L 10/03/24 00:29 102 H 102/64 10/03/24 00:27 104 H 97 10/03/24 00:22 93 H 96 10/03/24 00:17 95 H 96 10/03/24 00:14 102 H 110/60 10/03/24 00:12 97 H 89 L 10/03/24 00:09 90 91 10/03/24 00:07 91 H 92 10/03/24 00:03 96 H 91 10/03/24 00:02 91 H 92 10/02/24 23:59 89 10/02/24 23:59 95/55 L 10/02/24 23:57 92 10/02/24 23:57 90 10/02/24 23:56 91 10/02/24 23:56 92 H 10/02/24 23:52 96 10/02/24 23:52 97 H 10/02/24 23:48 89 L 10/02/24 23:48 95 H 10/02/24 23:47 92 10/02/24 23:47 93 H 10/02/24 23:43 93 H 10/02/24 23:43 104/54 L 10/02/24 23:42 94 10/02/24 23:42 99 H 10/02/24 23:37 94 10/02/24 23:37 105 H 10/02/24 23:32 94 10/02/24 23:32 99 H 10/02/24 23:27 95 10/02/24 23:27 109 H 10/02/24 23:24 37.3 C 10/02/24 23:22 95 10/02/24 23:22 107 H 10/02/24 23:18 103 H 10/02/24 23:18 104/59 L 10/02/24 23:17 94 10/02/24 23:17 114 H 10/02/24 23:12 96 10/02/24 23:12 114 H 10/02/24 23:07 95 10/02/24 23:07 106 H 10/02/24 23:04 91 10/02/24 23:04 108 H 10/02/24 23:03 105 H 10/02/24 23:03 107/71 10/02/24 23:02 93 10/02/24 23:02 112 H 10/02/24 22:57 93 10/02/24 22:57 105 H 10/02/24 22:52 97 10/02/24 22:52 105 H 10/02/24 22:47 97 10/02/24 22:47 103 H 10/02/24 22:45 95 H 10/02/24 22:45 104/55 L 10/02/24 22:42 97 10/02/24 22:42 93 H 10/02/24 22:41 89 L 10/02/24 22:41 101 H 10/02/24 22:38 86 10/02/24 22:38 93/52 L 10/02/24 22:37 94 10/02/24 22:37 90 10/02/24 22:32 100 10/02/24 22:32 92 H 10/02/24 22:27 100 10/02/24 22:27 90 10/02/24 22:26 81 10/02/24 22:26 105/55 L 10/02/24 22:24 80 10/02/24 22:24 111/55 L 10/02/24 22:22 99 10/02/24 22:22 82 10/02/24 22:22 111/58 L 10/02/24 22:20 76 10/02/24 22:20 108/58 L 10/02/24 22:18 88 10/02/24 22:18 122/68 10/02/24 22:17 99 10/02/24 22:17 82 10/02/24 22:17 74 10/02/24 22:17 122/60 10/02/24 22:14 88 10/02/24 22:14 128/68 10/02/24 22:12 100 10/02/24 22:12 74 10/02/24 22:12 119/64 10/02/24 22:10 77 10/02/24 22:10 112/58 L 10/02/24 22:09 86 10/02/24 22:09 120/62 10/02/24 22:07 100 10/02/24 22:07 83 10/02/24 22:07 117/58 L 10/02/24 22:04 85 10/02/24 22:04 136/68 10/02/24 22:02 100 10/02/24 22:02 86 10/02/24 21:57 96 10/02/24 21:57 88 07/31/25 21:52 99 10/02/24 21:52 97 H 10/02/24 21:47 98 10/02/24 21:47 93 H 10/02/24 21:42 96 10/02/24 21:42 81 10/02/24 21:37 98 10/02/24 21:37 95 H 10/02/24 21:32 97 10/02/24 21:32 95 H 10/02/24 21:30 36.8 C 10/02/24 21:27 97 10/02/24 21:27 97 H 10/02/24 21:23 89 L 10/02/24 21:23 118 H 10/02/24 21:22 92 10/02/24 21:22 121 H 10/02/24 21:22 101 H 10/02/24 21:22 130/76 10/02/24 21:17 97 10/02/24 21:17 95 H 10/02/24 21:12 97 10/02/24 21:12 92 H 10/02/24 21:08 99 H 10/02/24 21:08 120/63 10/02/24 21:07 98 10/02/24 21:07 99 H O2 Del Method 10/03/24 04:30 Room Air 10/03/24 04:04 10/03/24 03:55 10/03/24 03:45 10/03/24 03:45 10/03/24 03:44 10/03/24 03:34 10/03/24 03:24 10/03/24 03:15 10/03/24 03:14 10/03/24 03:04 10/03/24 02:54 10/03/24 02:45 10/03/24 02:44 10/03/24 02:35 10/03/24 02:34 10/03/24 02:26 10/03/24 02:25 10/03/24 02:15 10/03/24 02:14 10/03/24 02:05 10/03/24 02:04 10/03/24 01:54 10/03/24 01:53 10/03/24 01:53 10/03/24 00:29 10/03/24 00:27 10/03/24 00:22 10/03/24 00:17 10/03/24 00:14 10/03/24 00:12 10/03/24 00:09 10/03/24 00:07 10/03/24 00:03 10/03/24 00:02 10/02/24 23:59 10/02/24 23:59 10/02/24 23:57 10/02/24 23:57 10/02/24 23:56 10/02/24 23:56 10/02/24 23:52 10/02/24 23:52 10/02/24 23:48 10/02/24 23:48 10/02/24 23:47 10/02/24 23:47 10/02/24 23:43 10/02/24 23:43 10/02/24 23:42 10/02/24 23:42 10/02/24 23:37 10/02/24 23:37 10/02/24 23:32 10/02/24 23:32 10/02/24 23:27 10/02/24 23:27 10/02/24 23:24 10/02/24 23:22 10/02/24 23:22 10/02/24 23:18 10/02/24 23:18 10/02/24 23:17 10/02/24 23:17 10/02/24 23:12 10/02/24 23:12 10/02/24 23:07 10/02/24 23:07 10/02/24 23:04 10/02/24 23:04 10/02/24 23:03 10/02/24 23:03 10/02/24 23:02 10/02/24 23:02 10/02/24 22:57 10/02/24 22:57 10/02/24 22:52 10/02/24 22:52 10/02/24 22:47 10/02/24 22:47 10/02/24 22:45 10/02/24 22:45 10/02/24 22:42 10/02/24 22:42 10/02/24 22:41 10/02/24 22:41 10/02/24 22:38 10/02/24 22:38 10/02/24 22:37 10/02/24 22:37 10/02/24 22:32 10/02/24 22:32 10/02/24 22:27 10/02/24 22:27 10/02/24 22:26 10/02/24 22:26 10/02/24 22:24 10/02/24 22:24 10/02/24 22:22 10/02/24 22:22 10/02/24 22:22 10/02/24 22:20 10/02/24 22:20 10/02/24 22:18 10/02/24 22:18 10/02/24 22:17 10/02/24 22:17 10/02/24 22:17 10/02/24 22:17 10/02/24 22:14 10/02/24 22:14 10/02/24 22:12 10/02/24 22:12 10/02/24 22:12 10/02/24 22:10 10/02/24 22:10 10/02/24 22:09 10/02/24 22:09 10/02/24 22:07 10/02/24 22:07 10/02/24 22:07 10/02/24 22:04 10/02/24 22:04 10/02/24 22:02 10/02/24 22:02 10/02/24 21:57 10/02/24 21:57 10/02/24 21:52 10/02/24 21:52 10/02/24 21:47 10/02/24 21:47 10/02/24 21:42 10/02/24 21:42 10/02/24 21:37 10/02/24 21:37 10/02/24 21:32 10/02/24 21:32 10/02/24 21:30 10/02/24 21:27 10/02/24 21:27 10/02/24 21:23 10/02/24 21:23 10/02/24 21:22 10/02/24 21:22 10/02/24 21:22 10/02/24 21:22 10/02/24 21:17 10/02/24 21:17 10/02/24 21:12 10/02/24 21:12 10/02/24 21:08 10/02/24 21:08 10/02/24 21:07 10/02/24 21:07
[2024-10-03] MEDS: SODIUM CHLORIDE 0.9% PF INJ 10 ML VIAL ONE (09:48)
[2024-10-03] MEDS: MEASLES, MUMPS & RUBELLA VIRUS VACCINE (MMR) 0.5ML VIAL SQ ONE (09:51)
[2024-10-03] MEDS: OXYTOCIN 20 UNITS/1002ML LR IV ONE (10:01)
[2024-10-03] MEDS: FLUCONAZOLE 50 MG TAB PO ONE (10:45)
[2024-10-03] MEDS ORDERED: Nursing to Pharmacy Communication SCH (11:00)
[2024-10-03] MEDS: MoRPHine SULFATE 2 MG/ML CARP IV PRN (15:27)
[2024-10-03] MEDS ORDERED: PROMETHAZINE 12.5 MG/50.5 ML BAG IV PRN (19:10)
[2024-10-03] MEDS ORDERED: diphenhydrAMINE Capsule 25 MG CAP PO PRN (19:10)
[2024-10-04] MEDS: IBUPROFEN 600 MG TAB PO SCH (01:26)
[2024-10-04] MEDS ORDERED: KETOROLAC 30 MG/ML VIAL IV PRN (01:39)
[2024-10-04] MEDS: HYDROmorphone INJ 0.5 MG/0.5 ML SYR IV PRN (04:52)
[2024-10-04 07:23] LABS: Hematocrit (blood only) 27.9 % (37.0-47.0); Hemoglobin 9.1 g/dl (12.0-16.0); Immature Granulocytes # (auto) 0.08 K/uL (0.01-0.20); Immature Granulocytes % (auto) 0.5 %; Mean Corpuscular Hemoglobin 28.5 pg (25.0-34.0); Mean Corpuscular Volume 87.5 fL (80.0-100.0); Platelet Count 193 K/uL (130-400); RDW Standard Deviation 62.0 fL (36.4-46.3); Red Blood Count 3.19 M/uL (4.20-5.40); White Blood Count 16.33 K/ul (4.8-10.8)
--- NOTE | 2024-10-04 09:07 | Obstetrical Progress Note ---
Date of Service October 04, 2024 Subjective Ambulation: ambulating normally Voiding: no voiding problems Passing Gas:: Yes Diet Tolerance:: regular diet Lochia:: Small Feeding Type:: breast feeding Current Pain Level(1-10): 0 doing well Physical Exam Constitutional WD/WN, vitals as above Gastrointestinal (Abdomen) Inspection/Auscultation: abdomen normal to inspection incision c/d/i abdomen soft and non-tender fundus firm below U Musculoskeletal Extremities: extremities normal to inspection Skin no rashes, warm and dry Neurologic patellar DTR's 2+ bilat, sensation intact Psychiatric A+Ox3, euthymic affect Results & Data Vital Signs (Past 12 Hours) Vital Signs Temp Pulse Resp BP Pulse Ox O2 Del Method 10/04/24 00:30 36.4 C L 83 18 97/61 L 98 Room Air Laboratory Results 10/01/24 10/02/24 10/04/24 08:05 23:32 07:14 WBC 12.71 H 21.91 H 16.33 H RBC 4.23 3.70 L 3.19 L Hgb 12.4 10.5 L 9.1 L Hct 37.3 31.9 L 27.9 L MCV 88.2 86.2 87.5 MCH 29.3 28.4 28.5 MCHC 33.2 32.9 32.6 RDW Std Deviation 61.9 H 60.7 H 62.0 H RDW Coeff of Gwendolyn 19.4 H 19.4 H 19.4 H Plt Count 195 171 193 MPV 12.4 11.3 11.1 Immature Gran % (Auto) 0.5 Neut % (Auto) 80.8 Lymph % (Auto) 13.0 [place] % (Auto) 5.3 Eos % (Auto) 0.2 Baso % (Auto) 0.2 Neut # (Auto) 13.21 H Lymph # (Auto) 2.12 [place] # (Auto) 0.86 H Eos # (Auto) 0.03 Baso # (Auto) 0.03 Immature Gran # (Auto) 0.08 Treponema pallidum Ab Negative Blood Type B Negative Antibody Screen NEGATIVE Crossmatch See Detail
[2024-10-04] MEDS ORDERED: Nursing to Pharmacy Communication SCH (21:00)
[2024-10-04] MEDS: SIMETHICONE 250 MG EXT SCH (21:07)
[2024-10-05] MEDS ORDERED: IBUPROFEN 600 MG TAB PO PRN (01:39)
[2024-10-05] MEDS ORDERED: ACETAMINOPHEN 325 MG TAB PO PRN (07:39)
[2024-10-05 08:12] LABS: Hematocrit (blood only) 28.0 % (37.0-47.0); Hemoglobin 8.7 g/dl (12.0-16.0)
--- NOTE | 2024-10-05 08:56 | Obstetrical Progress Note ---
Date of Service October 05, 2024 Assessment & Plan (1) Status post delivery: discharged follow up in office in one week Subjective Ambulation: ambulating normally Voiding: no voiding problems Passing Gas:: Yes Diet Tolerance:: regular diet Lochia:: Small Feeding Type:: breast feeding Current Pain Level(1-10): 0 doing well. some discomfort in right groin when getting up to bathroom. Physical Exam Constitutional WD/WN, vitals as above Gastrointestinal (Abdomen) Inspection/Auscultation: abdomen normal to inspection incision c/d/i Musculoskeletal Extremities: extremities normal to inspection Skin no rashes, warm and dry Neurologic patellar DTR's 2+ bilat, sensation intact Psychiatric A+Ox3, euthymic affect Results & Data Vital Signs (Past 12 Hours) Vital Signs Temp Pulse Resp BP Pulse Ox O2 Del Method 10/05/24 03:20 36.5 C 74 18 104/69 98 Room Air 10/04/24 23:28 36.5 C 88 18 107/69 98 Room Air Laboratory Results 10/01/24 10/02/24 10/04/24 08:05 23:32 07:14 WBC 12.71 H 21.91 H 16.33 H RBC 4.23 3.70 L 3.19 L Hgb 12.4 10.5 L 9.1 L Hct 37.3 31.9 L 27.9 L MCV 88.2 86.2 87.5 MCH 29.3 28.4 28.5 MCHC 33.2 32.9 32.6 RDW Std Deviation 61.9 H 60.7 H 62.0 H RDW Coeff of Gwendolyn 19.4 H 19.4 H 19.4 H Plt Count 195 171 193 MPV 12.4 11.3 11.1 Immature Gran % (Auto) 0.5 Neut % (Auto) 80.8 Lymph % (Auto) 13.0 [place] % (Auto) 5.3 Eos % (Auto) 0.2 Baso % (Auto) 0.2 Neut # (Auto) 13.21 H Lymph # (Auto) 2.12 [place] # (Auto) 0.86 H Eos # (Auto) 0.03 Baso # (Auto) 0.03 Immature Gran # (Auto) 0.08 Treponema pallidum Ab Negative Blood Type B Negative Antibody Screen NEGATIVE Crossmatch See Detail 10/05/24 07:08 WBC RBC Hgb 8.7 L Hct 28.0 L MCV MCH MCHC RDW Std Deviation RDW Coeff of Gwendolyn Plt Count MPV Immature Gran % (Auto) Neut % (Auto) Lymph % (Auto) [place] % (Auto) Eos % (Auto) Baso % (Auto) Neut # (Auto) Lymph # (Auto) [place] # (Auto) Eos # (Auto) Baso # (Auto) Immature Gran # (Auto) Treponema pallidum Ab Blood Type Antibody Screen Crossmatch
[2024-10-05 10:21] VITALS: BP 120/79; PULSE 92; RESP 16; TEMP 97.9; O2SAT 99
== END 2024-10-05 11:00 | disposition home or self-care (01) | DRG 787 ==
LOC: 4S1 07:40 → 4E2 10-03 04:51